=== PATIENT | female | born 1950 | race Caucasian/White ===

== ENCOUNTER 2020-09-30 15:25 | Inpatient (IN) | payer MEDICARE, OTHER ==
[~2020-09-30] VITALS: Ht 67 cm; Wt 74.3 kg
[~2020-09-30 15:25] MED LIST: ACETAMINOPHEN 500 MG TAB (TYLENOL) PO PRN; ALPRAZolam 0.25 MG (XANAX) TAB PO PRN; AMIT25TA9 PO; ASCO100024 PO; ASPI325T32 PO; BISACODYL 10 MG SUPP (DULCOLAX) PR PRN; BUTA-235 PO; CALC1TAB84 PO; CALCIUM CARBONATE 500 MG (TUMS) TAB.CHEW PO PRN; CHOL500050 PO; CRAN400T3 PO; DOCU100T2 PO; DOCUSATE SODIUM 100 MG (COLACE) CAP PO PRN; DOCUSATE SODIUM 100 MG (COLACE) CAP PO SCH; EZET10TA49 PO; FLEET ENEMA ADULT 1 EA BTL PR PRN; IRON1TAB PO; LACT1CAP76 PO; LACTULOSE SYRUP 10GM/15ML (ENULOSE) 30ML UDC PO PRN; LISI20TA26 PO; LOPERAMIDE 2 MG (IMODIUM) TABLET PO PRN; MAGN500C16 PO; MELATONIN 3 MG TABLET PO PRN; METH1TAB PO; NITR-65 PO; PANT40TA52 PO; SERT50TA2 PO; UBID100C17 PO; VITA400C60 PO; WHEA144P PO; WHEA1POW6 PO; diphenhydrAMINE 25 MG TAB (BENADRYL) PO PRN; guaiFENesin/CODEINE (ROBITUSSIN AC) 10ML UDC PO PRN
[2020-09-30] MEDS ORDERED: ACETAMINOPHEN 325 MG TABLET PO PRN (15:45)
--- NOTE | 2020-09-30 15:56 | Occupational Therapy Eval ---
OT Evaluation-General/PLF Medical Diagnosis Admission Date Sep 30, 2020 at 15:25 Medical Diagnosis: L4-S1 anterior lumbar interbody fusion Onset Date: Sep 27, 2020 Therapy Diagnosis Therapy Diagnosis: Decreased ADL status Precautions Precautions/Isolations: Standard Precautions Comments Spinal precautions. Keep dressing in place during showers, change after. Referral Physician: Amrita Referral Reason: Activity Tolerance, Self Care, Evaluation/Treatment, Strengthening/ROM Medical History Pertinent Medical History: Arthritis, HTN Additional Medical History lumpectomy, back surgery, L knee replacement, anxiety, arthritis, chronic depression, HTN, UTIs Current History L4-5, L5-S1 ALIF with interbody cage without integral fixation; T9-pelvis posterior spinal fusion with instrumentation; pelvic fixation bilaterally at caudal end of construct; autograft for spine surgery local (keep dressing in place with showering though change after). Spinal precautions in place with back brace in place when OOB. Reviewed History: Yes Social History Home: Single Level Current Living Status: Alone Entry Into Home: Level Entry Steps Into Home: 0 Steps Inside Home: 0 ADL-Prior Level of Function SCALE: Activities may be completed with or without assistive devices. 6-Yizrnelyyg-fwnssco completes the activity by him/herself with no assistance from a helper. 5-Set-up or Clean-up Assistance-helper sets up or cleans up; patient completes a ctivity. [place] assists only prior to or following the activity. 4-Supervision or Touching Assistance-helper provides verbal cues and/or touching/steadying and/or contact guard assistance as patient completes activity. Assistance may be provided throughout the activity or intermittently. 3-Partial/Moderate Assistance-helper does LESS THAN HALF the effort. [place] lifts, holds or supports trunk or limbs, but provides less than half the effort. 2-Substantial/Maximal Assistance-helper does MORE THAN HALF the effort. [place] lifts or holds trunk or limbs and provides more than half the effort. 0-Eyvvawqqj-tbvotj does ALL the effort. Patient does none of the effort to complete the activity. Or, the assistance of 2 or more helpers is required for the patient to complete the activity. If activity was not attempted, code reason: 7-Patient Refused. 9-Not Applicable-not attempted and the patient did not perform the activity before the current illness, exacerbation or injury. 10-Not Attempted due to Environmental Limitations-(lack of equipment, weather restraints, etc.). 88-Not Attempted due to Medical Conditions or Safety Concerns. ADL PLOF Comments Pt states no pain prior, though did have immense back fatigue. Pt states was IND without use of AD/ AE. 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 Self Care: Independent Functional Cognition: Independent DME/Equipment: Bedside Commode, Shower DME/Equipment Comments Bedside commode over standard toilet, walk in shower, no gbs/ sc (though states can use chair from bathroom as sc), owns walker though did not use prior Occupation: [employer] nurse [address] Self: Yes OT Current Status Subjective Pt brought from family vehicle with [facility] for transfer to [facility]. No c/o pain (later rates 3-4/10 in back), AxO. Pt agrees to tx. Mental Status/Objective Patient Orientation: Person, Place, Situation, Normal For Age Attachments: Siegel Catheter Current Glasses/Contacts: Yes (contacts) Hearing Aids: No Dentures/Partials: No Hand Dominance: Right Upper Extremity ROM WFL BUE Upper Extremity Coordination WFL BUE Upper Extremity Sensation No paresthesias UE/ LE Upper Extremity Strength WFL per clinical judgment. DNT due to lifting precautions. Edema: none noted ADL-Treatment Eating (QC): 6 (pt drinks from cup. ) Oral Hygiene (QC): 6 (per clinical judgment. ) Shower/Bathe Self (QC): 7 Upper Body Dressing (QC): 7 Lower Body Dressing (QC): 7 On/Off Footwear (QC): 7 Toileting Hygiene (QC): 7 Other Treatments Pt AxO, good awareness/ problem solving. Pt completes car transfer [facility] to [facility], pushed into building. Pt is brought to ARU by [facility], introduced to building and ARU expectations, including OT/ PT/ DICTIONARY EDITOR role. Pt able to state 2/3 precautions (forgetting lifting precaution). Pt is demonstrated each precaution and reinforced no bending >90*. Pt completes ROM, no MMT due to 5 lb lifting restriction. Pt states was "in fog" prior due to anesthesias, and vision was affected from anesthesias past few days though is "almost normal." Pt states back surgery was ~6 hrs in length. Pt completes sit to stand SBA, ambulates with walker to chair/ sits with control. Pt describes home environment, is brought [facility] over toilet and AE (introduced to AE). Pt is educated on showering/ dressing/ ADLs and planned OT/ PT tomorrow. Pt states she is ready to shower (keep dressing in place with showering, change after). Pt able to drink IND. Pt is introduced to room/ call light. Pt denies needs, denies pain medication needs though pain 10/26. Pt left in recliner with all needs met, call light on lap, blanket donned. Education OT Patient Education: Correct positioning, Modified ADL techniques, Purpose of tx/functional activities, Reviewed precautions, Rehab process, Safety issues, Use of adapted equipment Teaching Recipient: Patient Teaching Methods: Demonstration, Discussion Response to Teaching: Verbalize Understanding, Return Demonstration OT Short Term Goals Short Term Goals Shower/bathe self: 3 Upper body dressin Lower body dressin Putting on/taking off footwear: 3 OT Director Of Dietary Goals Senior Care Goals Time Frame: Oct 14, 2020 Eating (QC): 6 Oral Hygiene (QC): 6 Toileting Hygiene (QC): 6 Shower/Bathe Self (QC): 6 Upper Body Dressing (QC): 6 Lower Body Dressing (QC): 6 On/Off Footwear (QC): 6 Additional Goals: 1-Demonstrate ADL Tasks, 2-Verbalize Understanding, 3- ImproveStrength/Luis 1=Demonstrate adherence to instructed precautions during ADL tasks. 2=Patient will verbalize/demonstrate understanding of assistive devices/modifications for ADL. 3=Patient will improve strength/tolerance for activity to enable patient to perform ADL's. OT Education/Plan Problem List/Assessment Assessment: Decreased Activ Tolerance, Decreased UE Strength, Impaired I ADL's, Impaired Self-Care Skills Discharge Recommendations Plan/Recommendations: Continue POC Therapy Discharge Recommendati: Home & Family Equpiment Recommendations-D/C: Hip Kit Treatment Plan/Plan of Care Treatment,Training & Education: Yes Patient would benefit from OT for education, treatment and training to promote independence in ADL's, mobility, safety and/or upper extremity function for ADL's. Plan of Care: ADL Retraining, Caregiver Training, Concurrent Therapy, Functional Mobility, Group Exercise/Act as Ind, UE Funct Exercise/Act Treatment Duration: Oct 14, 2020 Frequency: At least 5 of 7 days/Wk (IRF) Estimated Hrs Per Day: 1.5 hours per day Agreement: Yes Rehab Potential: Good Time/GCodes Start Time: 15:20 Stop Time: 15:45 Total Time Billed (hr/min): 25 Billed Treatment Time 1, BUDDY, FA= 25 TOMAS MOCTEZUMA OTR Sep 30, 2020 15:56
[2020-09-30] MEDS ORDERED: [UNRECOGNIZED DRUG - OTHER] PO (16:05)
[2020-09-30] MEDS ORDERED: [UNRECOGNIZED DRUG - OTHER] PO (16:05)
[2020-09-30] MEDS ORDERED: [UNRECOGNIZED DRUG - REMARK] PO (16:06)
--- NOTE | 2020-09-30 16:41 | PM&R Post Admission Assessment ---
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 Patient is currently ready for IRF protocol and is requesting a hot shower. Bladder meds were started at [facility] since bladder training was unsuccessful and catheter remained in place and was transported with it in place. Past Wohajts-Htmelk-Gjcubt Hx Past Med/Social Hx: Reviewed Nursing Past Med/Soc Hx, Reviewed and Corrections made Patient Social History Marrital Status: Employed/Student: employed Alcohol Use: Denies Use Smoking Status: Never a Smoker Recent Foreign Travel: No Contact w/other who traveled: No Immunizations Up To Date Date of Influenza Vaccine: May 30, 2020 Past Medical History Surgeries: Breast, Gallbladder, Hysterectomy, Orthopedic, Tonsillectomy Cardiac: High Cholesterol, Hypertension Neurological: Headaches /Migraines : No Genitourinary: Bladder Infection Musculoskeletal: Degenerate Disk Disease, Chronic Back Pain Psychosocial: Depression Self Care: Independent Functional Cognition: Independent Occupation: [employer] nurse Drive Self: Yes Eatin (pt drinks from cup. ) Oral Hygiene: 6 (per clinical judgment. ) Shower/Bathe Self: 7 Upper Body Dressin Lower Body Dressin On/Off Footwear: 7 Toileting Hygiene: 7 PM&R Allergy/Meds/Data Review Allergies Coded Allergies: Sulfa (Sulfonamide Antibiotics) (Verified Allergy, Unknown, 09/30/20) codeine (Verified Allergy, Unknown, 09/30/20) morphine (Verified Allergy, Unknown, 09/30/20) tramadol (Verified Allergy, Unknown, 09/30/20) Home Medications Scheduled Amitriptyline HCl (Amitriptyline HCl), 25 MG PO HS, (Reported) Ascorbic Acid (Vitamin C), 1,000 MG PO DAILY, (Reported) Aspirin (Aspirin EC), 325 MG PO DAILY, (Reported) Calcium Carbonate/Vitamin D3 (Calcium 600 + Vit D 200 Tablet), 1 EACH PO BID, (Reported) Cholecalciferol (Vitamin D3) (Vitamin D3), 125 MCG PO DAILY, (Reported) Cranberry Fruit (Cranberry), 400 MG PO DAILY, (Reported) Docusate Sodium (Docusate Sodium), 200 MG PO BID, (Reported) Ezetimibe (Ezetimibe), 10 MG PO DAILY, (Reported) Lactobacillus Acidophilus/Pect (Acidophilus-Pectin Capsule), 1 EACH PO DAILY, (Reported) Lisinopril (Lisinopril), 20 MG PO DAILY, (Reported) Magnesium Oxide (Magnesium Oxide), 500 MG PO DAILY, (Reported) Methenamine Hippurate (Hiprex), 1 GM PO BID, (Reported) Nitrofurantoin Monohyd/M-Cryst (Macrobid 100 mg Capsule), 100 MG PO BID, (Reported) Pantoprazole Sodium (Pantoprazole Sodium), 40 MG PO BID, (Reported) No.123/Iron/Folic AC (Elite-Ob Caplet), 1 EACH PO DAILY, (Reported) Sertraline HCl (Zoloft), 50 MG PO DAILY, (Reported) Ubidecarenone (Coq-10), 200 MG PO DAILY, (Reported) Vitamin E Acetate (Vitamin E), 400 UNIT PO DAILY, (Reported) Wheat Dextrin (Benefiber), 1 EACH PO DAILY, (Reported) [Adrenal Raw], 1 EA PO DAILY, (Reported) [All Thymus], 1 EA PO DAILY, (Reported) [Vs-C], 1 EA PO BID, (Reported) Scheduled PRN Butalb/Acetaminophen/Caffeine (Amtxfr-Fvzwvfsz-Qzun 50-325-40), 1 EACH PO Q4H PRN for HEADACHE, (Reported) Discontinued Medications Wheat Dextrin (Benefiber), 10 ML PO DAILY, (Reported) Discontinued Reason: Prescription changed Current Medications Current Medications Reviewed Review of Systems Constitutional: see HPI, malaise, weakness EENTM: no symptoms reported Respiratory: no symptoms reported Cardiovascular: no symptoms reported Gastrointestinal: constipation Genitourinary: other (retention) Musculoskeletal: back pain Skin: no symptoms reported Psychiatric/Neurological: Depressed All Other Systems Reviewed Negative Unless Noted: Yes Physical Exam Physical Exam Vital Signs Vital Signs - First Documented 09/30/20 15:58 Pulse Ox 95 O2 Delivery Room Air Capillary Refill : Height, Weight, BMI Height: '" Weight: lbs. oz. kg; 320.78 BMI Method: General Appearance: No Apparent Distress, WD/WN Eyes: Bilateral Eye Normal Inspection, Bilateral Eye PERRL HEENT: PERRL/EOMI, Normal ENT Inspection, Pharynx Normal Neck: Full Range of Motion, Normal Inspection, Non Tender, Supple, Carotid Bruit Respiratory: Chest Non Tender, Lungs Clear, Normal Breath Sounds, No Accessory Muscle Use, No Respiratory Distress Cardiovascular: Regular Rate, Rhythm, No Edema, No Gallop, No JVD, No Murmur, Normal Peripheral Pulses Gastrointestinal: Normal Bowel Sounds, No Organomegaly, No Pulsatile Mass, Non Tender, Soft Back: Normal Inspection, CVA Tenderness (L), CVA Tenderness (R), Decreased Range of Motion, Muscle Spasm, Vertebral Tenderness Extremity: Normal Capillary Refill, Normal Inspection, Normal Range of Motion, Non Tender, No Calf Tenderness, No Pedal Edema Neurologic/Psychiatric: Alert, Oriented x3, No Motor/Sensory Deficits, Normal Mood/Affect, Abnormal Gait, Motor Weakness (generlized weakness legs 4/5) Skin: Normal Color, Warm/Dry Lymphatic: No Adenopathy PM&R Medical Assessment & Plan REHAB/MEDICAL ASSESSMENT AND PLAN: REHAB IMPAIRMENT GROUP: Extensive spine surgery with debility ETIOLOGIC DIAGNOSIS: Extensive spine surgery with debility The comorbidities that impact the patients function and/or functional outcome by: extensive surgery, urinary retention with UTI's in past, severe pain REHAB PLAN: The patient is being admitted to our comprehensive inpatient rehabilitation faci lity and can tolerate the intensity of service consisting of at least: 180 minutes of therapy a day, 5 out of 7 days a week Rehab treatment will consist of: PT OT will help patient use assistive devices in order to regain function and teach fall risk prevention and ultimately return to independent living The patient/family has a good understanding of our discharge process and will benefit from an interdisciplinary inpatient rehabilitation program. The patient has potential to make improvement and is in need of at least two of the following multidisciplinary therapies including but not limited to physical, o ccupational, speech, and prosthetics and orthotics. Additionally the patient will need services from respiratory, nutritional services, wound care, psychology, etc. (Customize this to each patient). Given the patients complex condition and risk of further medical complications, rehabilitation services cannot be safely or effectively provided at a lower level of care such as a ski lled nursing facility. BARRIERS TO DISCHARGE: Extensive spine surgery and urinary retention post op complication ESTIMATED LOS: 7 days DISPOSITION: Home RELEVANT CHANGES SINCE PREADMISSION SCREENING: I have compared the patients medical and functional status at the time of the preadmission screening and there are: no changes PROGNOSIS: Good REHABILITATION GOALS: 1. PT OT will help patient use assistive devices in order to regain function and teach fall risk prevention and ultimately return to independent living All the above goals were reviewed with the patient and he/she is in agreement. By signing this document, I acknowledge that I have personally performed a full physical examination on this patient within 24 hours of admission to this inpatient rehabilitation facility and have determined the patient to be able to tolerate the above course of treatment at an intensive level for a reasonable period of time. I will be completing a detailed individualized Plan of Care for this patient by day #4 of the patients stay based upon the Preadmission Screen, the Post-Admission Evaluation, and the therapy evaluations. Admission Dx/Comorbidities: (1) S/P spinal surgery ICD Codes: Z98.890 - Other specified postprocedural states (2) GERD (gastroesophageal reflux disease) ICD Codes: K21.9 - Gastro-esophageal reflux disease without esophagitis (3) Siegel catheter in place ICD Codes: Z97.8 - Presence of other specified devices (4) Urinary retention ICD Codes: R33.9 - Retention of urine, unspecified (5) Hypertension ICD Codes: I10 - Essential (primary) hypertension (6) Hyperlipidemia ICD Codes: E78.5 - Hyperlipidemia, unspecified (7) Depression ICD Codes: F32.9 - Major depressive disorder, single episode, unspecified Assessment/Plan Assessment and Plan Assess & Plan/Chief Complaint Assessment: s/p extensive spine surgery Dr Anna POD # 3 Urinary retention post op h/o UTI's HTN HLP GERD Depression Plan: Monitor closely IRF Pain control Bladder meds LIDA RODRIGUEZ DO Sep 30, 2020 16:41
[2020-09-30] MEDS ORDERED: ACET/BUTAL/CAFF (FIORICET) TAB PO PRN (16:45)
[2020-09-30 17:10] VITALS: BP 122/59
[2020-09-30] MEDS: polyethylene glycoL POWDER 17 GM (MIRALAX) PACK PO SCH ×2 (17:38→20:53)
[2020-09-30] MEDS: SENNA W/DOCUSATE (SENOKOT S) TABLET PO SCH ×2 (17:38→20:40)
[2020-09-30] MEDS: NITROFURANTOIN 100 MG (MACROBID) CAPSULE PO SCH (17:54)
[2020-09-30] MEDS: CALCIUM CARB + VIT D 600 MG (CALCARB + D) TAB PO SCH (17:55)
[2020-09-30] MEDS: AMITRIPTYLINE 25 MG (ELAVIL) TAB PO SCH (20:40)
[2020-09-30] MEDS: PANTOPRAZOLE 40 MG (PROTONIX) TAB PO SCH (20:40)
[2020-09-30] MEDS: DOCUSATE SODIUM 100 MG (COLACE) CAP PO SCH (20:40)
[2020-09-30] MEDS: METHENAMINE HIPP (UREX) 1 GM TABLET PO SCH (20:42)
[2020-09-30] MEDS ORDERED: [UNRECOGNIZED DRUG - REMARK] PO SCH (21:00)
[2020-09-30] MEDS ORDERED: NON-FORMULARY MEDICATION 1 EA EA (Docusate Sodium 200 MG) PO SCH (21:00)
[2020-09-30] MEDS ORDERED: RX-NITROFURANTOIN 100 MG (MACROBID) CAP PPK#2 PO SCH (21:00)
[2020-09-30] MEDS ORDERED: NON-FORMULARY MEDICATION 1 EA EA (Calcium Carbonate/Vitamin D3 (Calcium 600 + Vit D 200 Ta PO SCH (21:00)
[2020-10-01 05:47] LABS: BASOPHILS % (AUTO) 0 % (0-10); EOSINOPHILS # (AUTO) 0.1 10^3/uL (0.0-0.3); EOSINOPHILS % (AUTO) 2 % (0-10); HEMATOCRIT 26 % (35-52); HEMOGLOBIN 8.4 g/dL (11.5-16.0); LYMPHOCYTES # (AUTO) 0.8 10^3/uL (1.0-4.0); LYMPHOCYTES % (AUTO) 13 % (12-44); MEAN CORPUSCULAR HEMOGLOBIN 29 pg (25-34); MEAN CORPUSCULAR HGB CONC 33 g/dL (32-36); MEAN CORPUSCULAR VOLUME 88 fL (80-99); MEAN PLATELET VOLUME 9.1 fL (9.0-12.2); MONOCYTES # (AUTO) 0.6 10^3/uL (0.0-1.0); MONOCYTES % (AUTO) 10 % (0-12); NEUTROPHILS # (AUTO) 4.7 10^3/uL (1.8-7.8); NEUTROPHILS % (AUTO) 74 % (42-75); PLATELET COUNT 178 10^3/uL (130-400); WHITE BLOOD COUNT 6.3 10^3/uL (4.3-11.0)
[2020-10-01 05:53] LABS: ALBUMIN 2.7 GM/DL (3.2-4.5)
[2020-10-01 05:54] LABS: CHLORIDE 103 MMOL/L (98-107); POTASSIUM 3.8 MMOL/L (3.6-5.0); SODIUM 136 MMOL/L (135-145)
[2020-10-01 05:56] LABS: GLUCOSE 118 MG/DL (70-105)
[2020-10-01 05:57] LABS: CARBON DIOXIDE 24 MMOL/L (21-32)
[2020-10-01 05:58] LABS: BILIRUBIN,TOTAL 0.4 MG/DL (0.1-1.0)
[2020-10-01 05:59] LABS: ALKALINE PHOSPHATASE 46 U/L (40-136)
[2020-10-01 06:00] LABS: CREATININE SERUM 0.52 MG/DL (0.60-1.30); GFR ESTIMATED > 60
[2020-10-01 06:01] LABS: BUN/CREATININE RATIO 19
[2020-10-01 06:03] LABS: ALANINE AMINOTRANSFERASE 23 U/L (0-55)
[2020-10-01 06:06] VITALS: BP 128/65
[2020-10-01] MEDS: PRENATAL VITAMIN 1 EA TAB PO SCH (06:37)
[2020-10-01] MEDS: BETHANECHOL 25 MG (URECHOLINE) TAB PO SCH ×4 (06:48→21:16)
[2020-10-01] MEDS ORDERED: IRON SUCROSE 200 MG/10 ML (VENOFER) VIAL IV ONE (07:00)
--- NOTE | 2020-10-01 07:19 | Occupational Ther Daily Note ---
OT Current Status-Daily Note Subjective Pt alert, sitting in recliner. Pt agrees to therapy. No c/o pain at this time. Mental Status/Objective Patient Orientation: Person, Place, Time, Situation Attachments: Siegel Catheter, IV ADL-Treatment Pt agrees to shower. Independent for set up of breakfast and using regular utensils to eat. SBA to ambulate into bathroom using FWW. Close SBA to transfer onto toilet, 1 verbal cue for FWW management. Close SBA to manipulate clothing in standing then independent to cleanse self sitting on toilet. SBA to ambulate to sink, pt stood and performed oral care. Due to back precautions pt is max A for all lower body bathing and dressing prior to using AE. Pt was educated on lower body AE and was able to demonstrate understanding by using AE. Pt ambulated with FWW with SBA to shower and required 1 verbal cue for reminder to sit to thread pants off of feet and used attraction worker to doff pants. Pt doffed shirt while sitting then OT covered incisions. Pt showered with supervision and required a long handled sponge to wash feet and lower legs. Pt stood with supervision to wash buttocks. Upon finishing shower, pt donned brief and pants with attraction worker with minimal assist to thread Siegel catheter through pants. Pt donned shirt and back brace with supervision. Pt donned socks with sock aid and attraction worker. Pt performed pants hike with close SBA, then ambulated with FWW with SBA to sink side to complete hair care while sitting. Pt in bathroom with call light in attraction worker and all needs met. Therapy Code Descriptions/Definitions Functional [place] Measure: 0=Not Assessed/NA 4=Minimal Assistance 1=Total Assistance 5=Supervision or Setup 2=Maximal Assistance 6=Modified [place] 3=Moderate Assistance 7=Complete IndependenceSCALE: Activities may be completed with or without assistive devices. 5-Mjtpprngbm-dqkfbot completes the activity by him/herself with no assistance from a helper. 5-Set-up or Clean-up Assistance-helper sets up or cleans up; patient completes activity. [place] assists only prior to or following the activity. 4-Supervision or Touching Assistance-helper provides verbal cues and/or touching/steadying and/or contact guard assistance as patient completes activity. Assistance may be provided throughout the activity or intermittently. 3-Partial/Moderate Assistance-helper does LESS THAN HALF the effort. [place] lifts, holds or supports trunk or limbs, but provides less than half the effort. 2-Substantial/Maximal Assistance-helper does MORE THAN HALF the effort. [place] lifts or holds trunk or limbs and provides more than half the effort. 3-Hudimdmga-vehxqm does ALL the effort. Patient does none of the effort to complete the activity. Or, the assistance of 2 or more helpers is required for the patient to complete the activity. If activity was not attempted, code reason: 7-Patient Refused. 9-Not Applicable-not attempted and the patient did not perform the activity before the current illness, exacerbation or injury. 10-Not Attempted due to Environmental Limitations-(lack of equipment, weather restraints, etc.). 88-Not Attempted due to Medical Conditions or Safety Concerns. Eating (QC): 6 (Ind) Oral Hygiene (QC): 4 (Supervision) Bathing Location: L Arm, R Arm, L Upper Leg, R Upper Leg, Chest, Abdomen, Buttocks, Perineal Area Shower/Bathe Self (QC): 3 (Due to back precautions pt is min A. Using AE pt is supervision) Upper Body Dressing (QC): 4 (Supervision) Lower Body Dressing (QC): 2 (Due to back precautions pt is max A with lower body dressing prior to use of AE. Anjali, pt required minimal assist to thread legs. Pt used attraction worker and stood to perform pants hike) On/Off Footwear: 2 (Due to back precautions pt is max A for foot wear. After education on sock aide supervision, pt used sock aid and attraction worker to don socks. pt used dressing stick to doff) Toileting Hygiene (QC): 4 (Supervision, pt performed hygiene and pants hike while standing) Toilet Transfer (QC): 4 (SBA) Education OT Patient Education: Correct positioning, Modified ADL techniques, Progress toward Goal/Update tx plan, Purpose of tx/functional activities, Reviewed precautions, Transfer techniques, Use of adapted equipment Teaching Recipient: Patient Teaching Methods: Demonstration, Discussion Response to Teaching: Verbalize Understanding OT Short Term Goals Short Term Goals Shower/bathe self: 3 Upper body dressin Lower body dressin Putting on/taking off footwear: 3 OT Transportation Director Goals [facility] Goals Time Frame: Oct 14, 2020 Eating (QC): 6 Oral Hygiene (QC): 6 Toileting Hygiene (QC): 6 Shower/Bathe Self (QC): 6 Upper Body Dressing (QC): 6 Lower Body Dressing (QC): 6 On/Off Footwear (QC): 6 Additional Goals: 1-Demonstrate ADL Tasks, 2-Verbalize Understanding, 3- ImproveStrength/Luis 1=Demonstrate adherence to instructed precautions during ADL tasks. 2=Patient will verbalize/demonstrate understanding of assistive devices/ modifications for ADL. 3=Patient will improve strength/tolerance for activity to enable patient to perform ADL's. OT Education/Plan Problem List/Assessment Assessment: Decreased UE Strength, Impaired I ADL's, Impaired Self-Care Skills, Restricted Funct UE ROM Discharge Recommendations Plan/Recommendations: Continue POC Treatment Plan/Plan of Care Patient would benefit from OT for education, treatment and training to promote independence in ADL's, mobility, safety and/or upper extremity function for ADL's. Plan of Care: ADL Retraining, Caregiver Training, Concurrent Therapy, Functional Mobility, Group Exercise/Act as Ind, UE Funct Exercise/Act Treatment Duration: Oct 14, 2020 Frequency: At least 5 of 7 days/Wk (IRF) Estimated Hrs Per Day: 1.5 hours per day Agreement: Yes Rehab Potential: Good Time/GCodes Start Time: 07:15 Stop Time: 08:45 Total Time Billed (hr/min): 90 Billed Treatment Time 1, ADL 6 (90') JAIRO JOHNSON Oct 01, 2020 07:19
[2020-10-01] MEDS ORDERED: UBIDECARENONE 200 MG PO SCH (09:00)
[2020-10-01] MEDS ORDERED: NON-FORMULARY MEDICATION 1 EA EA (Magnesium Oxide 500 MG) PO SCH (09:00)
[2020-10-01] MEDS ORDERED: WHEAT DEXTRIN PO SCH (09:00)
[2020-10-01] MEDS ORDERED: NON-FORMULARY MEDICATION 1 EA EA (Vitamin E Acetate (Vitamin E) 400 UNIT) PO SCH (09:00)
[2020-10-01] MEDS ORDERED: NON-FORMULARY MEDICATION 1 EA EA (Cranberry Fruit (Cranberry) 400 MG) PO SCH (09:00)
[2020-10-01] MEDS ORDERED: NON-FORMULARY MEDICATION 1 EA EA (Cholecalciferol (Vitamin D3) (Vitamin D3) 125 MCG) PO SCH (09:00)
[2020-10-01] MEDS ORDERED: NON-FORMULARY MEDICATION 1 EA EA (Ascorbic Acid (Vitamin C) 1,000 MG) PO SCH (09:00)
[2020-10-01] MEDS ORDERED: [UNRECOGNIZED DRUG - REMARK] PO SCH (09:00)
[2020-10-01] MEDS ORDERED: [UNRECOGNIZED DRUG - OTHER] PO SCH (09:00)
[2020-10-01] MEDS ORDERED: [UNRECOGNIZED DRUG - OTHER] PO SCH (09:00)
[2020-10-01] MEDS: ASPIRIN E.C. 325 MG (ECOTRIN) TABLET PO SCH (09:26)
[2020-10-01] MEDS: PSYLLIUM POWDER (METAMUCIL) 5.8 GM PACKET PO SCH (09:30)
[2020-10-01] MEDS: polyethylene glycoL POWDER 17 GM (MIRALAX) PACK PO SCH ×2 (09:30→21:15)
[2020-10-01] MEDS: SERTRALINE 50 MG (ZOLOFT) TABLET PO SCH (09:30)
[2020-10-01] MEDS: TAMSULOSIN 0.4 MG (FLOMAX) CAP PO SCH ×2 (09:30→21:16)
[2020-10-01] MEDS: SENNA W/DOCUSATE (SENOKOT S) TABLET PO SCH ×2 (09:30→21:16)
[2020-10-01] MEDS: eZETimibe 10 MG (ZETIA) TABLET PO SCH (09:30)
[2020-10-01] MEDS: PHENAZOPYRIDINE 100 MG (PYRIDIUM) TABLET PO SCH ×3 (09:30→18:38)
[2020-10-01] MEDS: VITAMIN E 180 MG (400 UNITS) CAP PO SCH (09:30)
[2020-10-01] MEDS: LACTOBACILLUS ACIDOPHILUS (PROBIOTIC) CAPSULE PO SCH (09:30)
[2020-10-01] MEDS: NITROFURANTOIN 100 MG (MACROBID) CAPSULE PO SCH ×2 (09:30→18:38)
[2020-10-01] MEDS: MAGNESIUM OXIDE (MAG-OX)400 MG TAB PO SCH (09:31)
[2020-10-01] MEDS: DOCUSATE SODIUM 100 MG (COLACE) CAP PO SCH ×2 (09:31→21:15)
[2020-10-01] MEDS: ASCORBIC ACID (VIT C) 500 MG TABLET PO SCH (09:31)
[2020-10-01] MEDS: lisINopril 20 MG (PRINIVIL) TABLET PO SCH (09:31)
[2020-10-01] MEDS: CALCIUM CARB + VIT D 600 MG (CALCARB + D) TAB PO SCH ×2 (09:31→18:38)
[2020-10-01] MEDS: PANTOPRAZOLE 40 MG (PROTONIX) TAB PO SCH ×2 (09:31→21:16)
[2020-10-01] MEDS: VITAMIN D3 125 MCG (5,000 UNITS) CAPSULE PO SCH (09:31)
[2020-10-01] MEDS: METHENAMINE HIPP (UREX) 1 GM TABLET PO SCH ×2 (09:32→21:16)
--- NOTE | 2020-10-01 11:53 | PM&R Progress Note ---
Subjective HPI/CC On Admission Date Seen by Provider: Oct 01, 2020 Time Seen by Provider: 12:15 Subjective/Events-last exam 10/01/20: Patient settling in well Will DC catheter soon Bladder meds maintained No BM yet so ordered supp and enema if needed Pain controlled Valium ordered for spasms Review of Systems General: Fatigue Gastrointestinal: Constipation Musculoskeletal: back pain Objective Exam Vital Signs Vital Signs Date Time Temp Pulse Resp B/P (MAP) Pulse Ox O2 Delivery O2 Flow Rate FiO2 10/02/20 05:52 36.4 92 18 127/62 (83) 95 Room Air Capillary Refill : General Appearance: No Apparent Distress, WD/WN HEENT: PERRL/EOMI, Normal ENT Inspection, Pharynx Normal Neck: Full Range of Motion, Normal Inspection, Non Tender, Supple, Carotid Bruit Respiratory: Chest Non Tender, Lungs Clear, Normal Breath Sounds, No Accessory Muscle Use, No Respiratory Distress Cardiovascular: Regular Rate, Rhythm, No Edema, No Gallop, No JVD, No Murmur, Normal Peripheral Pulses Gastrointestinal: Normal Bowel Sounds, No Organomegaly, No Pulsatile Mass, Non Tender, Soft Back: Normal Inspection, CVA Tenderness (L), CVA Tenderness (R), Decreased Range of Motion, Muscle Spasm, Vertebral Tenderness Extremity: Normal Capillary Refill, Normal Inspection, Normal Range of Motion, Non Tender, No Calf Tenderness, No Pedal Edema Neurologic/Psychiatric: Alert, Oriented x3, No Motor/Sensory Deficits, Normal Mood/Affect, Abnormal Gait, Motor Weakness (generlized weakness legs 4/5) Skin: Normal Color, Warm/Dry Lymphatic: No Adenopathy Results/Procedures Lab Patient resulted labs reviewed. FIM Transfers Therapy Code Descriptions/Definitions Functional [place] Measure: 0=Not Assessed/NA 4=Minimal Assistance 1=Total Assistance 5=Supervision or Setup 2=Maximal Assistance 6=Modified [place] 3=Moderate Assistance 7=Complete IndependenceSCALE: Activities may be completed with or without assistive devices. 2-Hfbunlybuo-usyersp completes the activity by him/herself with no assistance from a helper. 5-Set-up or Clean-up Assistance-helper sets up or cleans up; patient completes activity. [place] assists only prior to or following the activity. 4-Supervision or Touching Assistance-helper provides verbal cues and/or touching/steadying and/or contact guard assistance as patient completes activity. Assistance may be provided throughout the activity or intermittently. 3-Partial/Moderate Assistance-helper does LESS THAN HALF the effort. [place] lifts, holds or supports trunk or limbs, but provides less than half the effort. 2-Substantial/Maximal Assistance-helper does MORE THAN HALF the effort. [place] lifts or holds trunk or limbs and provides more than half the effort. 7-Mojohrdni-ffglkw does ALL the effort. Patient does none of the effort to complete the activity. Or, the assistance of 2 or more helpers is required for the patient to complete the activity. If activity was not attempted, code reason: 7-Patient Refused. 9-Not Applicable-not attempted and the patient did not perform the activity before the current illness, exacerbation or injury. 10-Not Attempted due to Environmental Limitations-(lack of equipment, weather restraints, etc.). 88-Not Attempted due to Medical Conditions or Safety Concerns. ADL-Treatment Eating (QC): 6 (Ind) Oral Hygiene (QC): 4 (Supervision) Bathing Location: L Arm, R Arm, L Upper Leg, R Upper Leg, Chest, Abdomen, Buttocks, Perineal Area Shower/Bathe Self (QC): 3 (Due to back precautions pt is min A. Using AE pt is supervision) Upper Body Dressing (QC): 4 (Supervision) Lower Body Dressing (QC): 2 (Due to back precautions pt is max A with lower body dressing prior to use of AE. Anjali, pt required minimal assist to thread legs. Pt used salvationist and stood to perform pants hike) On/Off Footwear (QC): 2 (Due to back precautions pt is max A for foot wear. After education on sock aide supervision, pt used sock aid and salvationist to don socks. pt used dressing stick to doff) Toileting Hygiene (QC): 4 (Supervision, pt performed hygiene and pants hike while standing) Toilet Transfer (QC): 4 (SBA) Assessment/Plan Assessment and Plan Assess & Plan/Chief Complaint Assessment: s/p extensive spine surgery Dr Anna POD # 4 Urinary retention post op h/o UTI's HTN HLP GERD Depression Anemia iron deficiency severe requiring IV iron Plan: Monitor closely IRF Pain control Bladder meds 10/01/20: Monitor BM Bladder meds Dr Lu consult IV iron infusion Pain control (1) S/P spinal surgery (2) GERD (gastroesophageal reflux disease) (3) Siegel catheter in place (4) Urinary retention (5) Hypertension (6) Hyperlipidemia (7) Depression LIDA RODRIGUEZ DO Oct 01, 2020 11:53
--- NOTE | 2020-10-01 11:55 | Physical Therapy Evaluation ---
PT Evaluation-General Medical Diagnosis Admission Date Sep 30, 2020 at 15:25 Medical Diagnosis: L4-S1 anterior lumbar interbody fusion Onset Date: Sep 27, 2020 Therapy Diagnosis Therapy Diagnosis: weakness; impaired mobility Precautions Precautions/Isolations: Fall Prevention, Standard Precautions Referral Physician: Amrita Reason for Referral: Evaluation/Treatment, Strengthening, Gait Medical History Pertinent Medical History: Arthritis, HTN Additional Medical History prior back surgery, left total knee replacement, anxiety, UTIs Reviewed History: Yes Social History Home: Single Level Current Living Status: Alone Entry Into Home: Level Entry PT Steps Into Home: 0 PT Steps Inside Home: 0 Prior Prior Level of Function SCALE: Activities may be completed with or without assistive devices. 4-Zldxudmdqf-nyuwbvg completes the activity by him/herself with no assistance from a helper. 5-Set-up or Clean-up Assistance-helper sets up or cleans up; patient completes activity. [place] assists only prior to or following the activity. 4-Supervision or Touching Assistance-helper provides verbal cues and/or touching/steadying and/or contact guard assistance as patient completes activity. Assistance may be provided throughout the activity or intermittently. 3-Partial/Moderate Assistance-helper does LESS THAN HALF the effort. [place] lifts, holds or supports trunk or limbs, but provides less than half the effort. 2-Substantial/Maximal Assistance-helper does MORE THAN HALF the effort. [place] lifts or holds trunk or limbs and provides more than half the effort. 2-Siqwduxsv-pcyghn does ALL the effort. Patient does none of the effort to complete the activity. Or, the assistance of 2 or more helpers is required for the patient to complete the activity. If activity was not attempted, code reason: 7-Patient Refused. 9-Not Applicable-not attempted and the patient did not perform the activity before the current illness, exacerbation or injury. 10-Not Attempted due to Environmental Limitations-(lack of equipment, weather restraints, etc.). 88-Not Attempted due to Medical Conditions or Safety Concerns. Bed Mobility: 6 Transfers (B,C,W/C): 6 Gait: 6 Stairs: 6 Indoor Mobility (Ambulation): Independent Stairs: Independent Prior Devices Use: None PT Evaluation-Current Subjective Pt underwent surgical fixation of the low thoracic and lumbar spine 09/27/20. She reports her primary symptoms prior to surgical were core weakness and inability to stand for prolonged periods. Pt reports that since surgery her pain has been minimal. She had spasms in the left side of the low back last night when trying to sleep. Pain Numeric Pain Scale: 3 Location: Lower Location Body Site: Back Pain Description: Ache, Cramping Objective Patient Orientation: Normal For Age Attachments: Siegel Catheter ROM/Strength ROM Lower Extremities right knee lacks full extension Strength Lower Extremities ankle PF/DF 5/5, knee extension 4/5 (B), hip flexion 3+/5 (B), hip extension 4/5 Integumentary/Posture Bladder Incontinence: Siegel Cath Sensory Vision: Wears Glasses Hearing: Functional Hand Dominance: Right Sensation Right Upper Extremit: Intact Sensation Left Upper Extremity: Intact Sensation Right Lower Extremit: Intact Sensation Left Lower Extremity: Intact Transfers Roll Left & Right (QC): 3 Sit to Lying (QC): 3 Lying to Sitting/Side of Bed(Q: 3 Sit to Stand (QC): 4 Chair/Qxf-fz-Ncokf Xfer(QC): 4 Toilet Transfer (QC): 3 Car Transfer (QC): 3 transfers required partial lifting of the LEs due to hip flexor weakness; some assist for the upper body is required due to abdominal and lumbar extensor weakness Gait Does the Patient Walk?: Yes Mode of Locomotion: Walk Anticipated Mode of Locomotion: Walk Walk 10 feet (QC): 4 Walk 50 ft with 2 Turns(QC): 4 Walk 150 ft (QC): 4 Walking 10ft/uneven surface-QC: 4 Distance: 1500 Gait Assistive Device: FWW Comments/Gait Description Patient fatigued toward the end of her walk and lost concentration to the point that she needed assistance in managing her walker around obstacles. Wheelchair Training Does the Pt Use a Wheelchair?: No Wheel 50 ft with 2 turns (QC): 9 Wheel 150 ft (QC): 9 Type of Wheelchair: N/A Stairs #of Steps: 4 1 Step (curb) (QC): 4 4 Steps (QC): 3 12 Steps (QC): 88 Walking Assistive Device: Walker LEs "froze" when approaching the curb step. She acknowleldged that she needed to lift her foot onto the step but was unable to lift either leg. She took a step back and then re-approached and was then able to step up onto the curb. Balance Sitting Static: Fair Sitting Dynamic: Fair Standing Static: Fair Standing Dynamic: Fair Picking up an Object (QC): 88 Assessment/Needs Pt motivated for rehab and return to (I) lifestyle. She had two episodes of left low back muscle spasm that completely limited her ability to move. One episode came when lying supine and the other when in a seated position with active hip flexion. She has weakness in her core and her LEs. She will benefit from intensive therapy to restore stability with dynamic balance and gait, improve strength, and promote return to home. Rehab Potential: Good PT Short Term Goals Short Term Goals Time Frame: Oct 08, 2020 Roll Left & Right: 4 Sit to lyin Lying to sitting on side of be: 5 Sit to stand: 5 Chair/png-ij-sqnio transfer: 5 Toilet transfer: 5 Car transfer: 5 Walk 10 feet: 5 Walk 50 feet with two turns: 5 Walk 150 feet: 5 Walking 10ft on uneven surface: 5 1 step (curb): 5 4 steps: 5 12 steps: 5 Picking up objects: 4 PT Nursing Manager Goals Care Home Goals PT Care Home Goals Time Frame: Oct 15, 2020 Roll Left & Right (QC): 6 Sit to Lying (QC): 6 Lying-Sitting on Side/Bed(QC): 6 Sit to Stand (QC): 6 Chair/Rju-ws-Pmmuc Xfer(QC): 6 Toilet Transfer (QC): 6 Car Transfer (QC): 6 Does the Patient Walk: Yes Walk 10 feet (QC): 6 Walk 50ft with 2 Turns (QC): 6 Walk 150 ft (QC): 6 Walking 10ft on Uneven Surface: 6 1 Step (curb) (QC): 6 4 Steps (QC): 6 12 Steps (QC): 6 Picking up an Object (QC): 6 Does the Pt use WC or Scooter?: No Wheel 50 feet with 2 turns (QC: 9 Type: N/A Wheel 150 feet: 9 Type: N/A PT Plan Problem List Problem List: Activity Tolerance, Functional Strength, Balance, Gait, Transfer, Bed Mobility, ROM Treatment/Plan Treatment Plan: Continue Plan of Care Treatment Plan: Bed Mobility, Education, Functional Activity Luis, Functional Strength, Group Therapy, Gait, Therapeutic Exercise, Transfers Treatment Duration: Oct 15, 2020 Frequency: At least 5 of 7 days/Wk (IRF) Estimated Hrs Per Day: 1.5 hours per day Patient and/or Family Agrees t: Yes Safety Risks/Education lumbar precautions: back brace on during out of bed activity, no flexion greater than 90 degrees, and no lifting over 5# Discharge Recommendations Target Placement home Time/GCodes Time In: 929 Time Out: 1000 Total Billed Treatment visit, eval high complexity 30 minutes LILLY STEARNS PT Oct 01, 2020 11:55
--- NOTE | 2020-10-01 12:18 | Physical Therapy Daily Note ---
PT Daily Note-Current Subjective Pt. agrees to Rx, feeling a bit fatigued but willing to walk short distance and do LE exercises Pain Numeric Pain Scale: 4 Location: Medial Location Body Site: Back Pain Description: Ache Mental Status Patient Orientation: Normal For Age Attachments: Other-See Comments (back brace) Transfers SCALE: Activities may be completed with or without assistive devices. 9-Wpyglkiuzr-uypbsdy completes the activity by him/herself with no assistance from a helper. 5-Set-up or Clean-up Assistance-helper sets up or cleans up; patient completes activity. [place] assists only prior to or following the activity. 4-Supervision or Touching Assistance-helper provides verbal cues and/or touching/steadying and/or contact guard assistance as patient completes activity. Assistance may be provided throughout the activity or intermittently. 3-Partial/Moderate Assistance-helper does LESS THAN HALF the effort. [place] lifts, holds or supports trunk or limbs, but provides less than half the effort. 2-Substantial/Maximal Assistance-helper does MORE THAN HALF the effort. [place] lifts or holds trunk or limbs and provides more than half the effort. 6-Bbtatuxvh-hgaveq does ALL the effort. Patient does none of the effort to complete the activity. Or, the assistance of 2 or more helpers is required for the patient to complete the activity. If activity was not attempted, code reason: 7-Patient Refused. 9-Not Applicable-not attempted and the patient did not perform the activity before the current illness, exacerbation or injury. 10-Not Attempted due to Environmental Limitations-(lack of equipment, weather restraints, etc.). 88-Not Attempted due to Medical Conditions or Safety Concerns. in out bed and chair SBA Gait Training Gait Assistive Device: FWW 25ft SBA Exercises Supine Ex: Ankle pumps, Quad Set, Glut sets, Heel Slides, Short Arc Quads, Scooting (up in recliner), Hip abd/add Supine Reps: 15 Seated Therapy Exercises: Ankle pumps, Sit to stand, Long arc quads, Hip flexion, Hip abd/add Seated Reps: 10 Treatments instructed in recline chair use and ways to find near zero grav position Assessment Current Status: Good Progress PT Short Term Goals Short Term Goals Time Frame: Oct 08, 2020 Roll Left & Right: 4 Sit to lyin Lying to sitting on side of be: 5 Sit to stand: 5 Chair/alt-wg-llata transfer: 5 Toilet transfer: 5 Car transfer: 5 Walk 10 feet: 5 Walk 50 feet with two turns: 5 Walk 150 feet: 5 Walking 10ft on uneven surface: 5 1 step (curb): 5 4 steps: 5 12 steps: 5 Picking up objects: 4 PT Shelter Goals Welding Pantograph Operator Goals PT Shelter Goals Time Frame: Oct 15, 2020 Roll Left & Right (QC): 6 Sit to Lying (QC): 6 Lying-Sitting on Side/Bed(QC): 6 Sit to Stand (QC): 6 Chair/Jmh-oq-Xwmud Xfer(QC): 6 Toilet Transfer (QC): 6 Car Transfer (QC): 6 Does the Patient Walk: Yes Walk 10 feet (QC): 6 Walk 50ft with 2 Turns (QC): 6 Walk 150 ft (QC): 6 Walking 10ft on Uneven Surface: 6 1 Step (curb) (QC): 6 4 Steps (QC): 6 12 Steps (QC): 6 Picking up an Object (QC): 6 Does the Pt use WC or Scooter?: No Wheel 50 feet with 2 turns (QC: 9 Type: N/A Wheel 150 feet: 9 Type: N/A PT Plan Treatment/Plan Treatment Plan: Continue Plan of Care Treatment Duration: Oct 15, 2020 Frequency: At least 5 of 7 days/Wk (IRF) Safety Risks/Education Patient Education: Gait Training, Correct Positioning, Safety Issues Teaching Recipient: Patient Teaching Methods: Demonstration, Discussion Response to Teaching: Verbalize Understanding, Return Demonstration, Reinforcement Needed Time/GCodes Time In: 1145 Time Out: 1215 Total Billed Treatment Time: 30 Total Billed Treatment 1,FA10,EX20 SUZANNE BARTON CLINICAL QUALITY MANAGER Oct 01, 2020 12:18
--- NOTE | 2020-10-01 12:18 | Physical Therapy Daily Note ---
PT Daily Note-Current Subjective Pt agreeable to therapy. Mental Status Patient Orientation: Normal For Age Attachments: Siegel Catheter Transfers SCALE: Activities may be completed with or without assistive devices. 9-Zimaikwpxn-xbtvgbj completes the activity by him/herself with no assistance from a helper. 5-Set-up or Clean-up Assistance-helper sets up or cleans up; patient completes activity. [place] assists only prior to or following the activity. 4-Supervision or Touching Assistance-helper provides verbal cues and/or touching/steadying and/or contact guard assistance as patient completes activity. Assistance may be provided throughout the activity or intermittently. 3-Partial/Moderate Assistance-helper does LESS THAN HALF the effort. [place] lift s, holds or supports trunk or limbs, but provides less than half the effort. 2-Substantial/Maximal Assistance-helper does MORE THAN HALF the effort. [place] lifts or holds trunk or limbs and provides more than half the effort. 1-Kmgpdhwus-qkynhx does ALL the effort. Patient does none of the effort to complete the activity. Or, the assistance of 2 or more helpers is required for the patient to complete the activity. If activity was not attempted, code reason: 7-Patient Refused. 9-Not Applicable-not attempted and the patient did not perform the activity before the current illness, exacerbation or injury. 10-Not Attempted due to Environmental Limitations-(lack of equipment, weather restraints, etc.). 88-Not Attempted due to Medical Conditions or Safety Concerns. education for rolling with log roll technique. Pt unable to lie supine on therapy mat due to back spasm. Gait Training Does the Patient Walk?: Yes Gait Assistive Device: FWW Ambulate 1500ft with FWW and CGA, rest, amb 500ft with FWW. Pt needed occasional cues for walker management. Exercises Seated Therapy Exercises: Ankle pumps, Long arc quads, Hip flexion, Kicking activity Standin way Ex=Flex, Abd, Ext, Marching, Mini squats, Side steps Standing Reps: 10 Performed Seated (B) LE nerve heriberto NuStep Minutes: 6 NuStep Workload: 5 Assessment Current Status: Good Progress PT Short Term Goals Short Term Goals Time Frame: Oct 08, 2020 Roll Left & Right: 4 Sit to lyin Lying to sitting on side of be: 5 Sit to stand: 5 Chair/ibr-yu-caamh transfer: 5 Toilet transfer: 5 Car transfer: 5 Walk 10 feet: 5 Walk 50 feet with two turns: 5 Walk 150 feet: 5 Walking 10ft on uneven surface: 5 1 step (curb): 5 4 steps: 5 12 steps: 5 Picking up objects: 4 PT Control Systems Developer Goals Skilled Nursing Goals PT Control Systems Developer Goals Time Frame: Oct 15, 2020 Roll Left & Right (QC): 6 Sit to Lying (QC): 6 Lying-Sitting on Side/Bed(QC): 6 Sit to Stand (QC): 6 Chair/Ing-zs-Xiluf Xfer(QC): 6 Toilet Transfer (QC): 6 Car Transfer (QC): 6 Does the Patient Walk: Yes Walk 10 feet (QC): 6 Walk 50ft with 2 Turns (QC): 6 Walk 150 ft (QC): 6 Walking 10ft on Uneven Surface: 6 1 Step (curb) (QC): 6 4 Steps (QC): 6 12 Steps (QC): 6 Picking up an Object (QC): 6 Does the Pt use WC or Scooter?: No Wheel 50 feet with 2 turns (QC: 9 Type: N/A Wheel 150 feet: 9 Type: N/A PT Plan Treatment/Plan Treatment Plan: Continue Plan of Care Treatment Plan: Bed Mobility, Education, Functional Activity Luis, Functional Strength, Group Therapy, Gait, Therapeutic Exercise, Transfers Treatment Duration: Oct 15, 2020 Frequency: At least 5 of 7 days/Wk (IRF) Estimated Hrs Per Day: 1.5 hours per day Patient and/or Family Agrees t: Yes Time/GCodes Time In: 1000 Time Out: 1030 Total Billed Treatment Time: 30 Total Billed Treatment visit, gait 15, ex 15 LILLY STEARNS PT Oct 01, 2020 12:18
[2020-10-01] MEDS ORDERED: DIAZEPAM 5 MG (VALIUM) TABLET PO SCH (14:00)
[2020-10-01 16:21] VITALS: BP 115/63
--- NOTE | 2020-10-01 19:14 | Individualized Plan of Care ---
Individualized Plan of Care Rehab Nursing IPOC Order Admission Date Sep 30, 2020 at 15:25 Current Orders Orders Admission Order(Inpt,Obs,Sdc) (09/30/20 05:49) Vital Signs: Per Unit Policy ( ,16,00 (09/30/20 05:49) Jacky Dockery (09/30/20 05:49) Sequential Compression Device Q4H (09/30/20 05:49) [employer]-Inpt Rehab Con (09/30/20 05:49) Rehab Nursing Orders-Ipoc (09/30/20 05:49) Physical Therapy Rehab Orders (09/30/20 05:49) Occupational Therapy Rehab Ord (09/30/20 05:49) Speech Therapy Rehab Orders (09/30/20 05:49) Cbc With Automated Diff (10/01/20 06:00) Comprehensive Metabolic Panel (10/01/20 06:00) Intake & Output 06,14,22 (09/30/20 05:49) Precautions (Aru) (09/30/20 05:49) Weekly Weight WEEK (09/30/20 05:49) Rehab-Intensity Of Therapy (09/30/20 05:49) Initiate Admission Nursing Pro .admission (09/30/20 05:49) Acetaminophen Tablet (Tylenol Tablet) (09/30/20 06:00) Alprazolam Tablet (Xanax Tablet) (09/30/20 06:00) Calcium Carbonate Chew Tablet (Antacid C (09/30/20 06:00) Diphenhydramine Tablet (Benadryl Tablet) (09/30/20 06:00) Docusate Sodium Capsule (Colace Capsule) (09/30/20 09:00) Docusate Sodium Capsule (Colace Capsule) (09/30/20 06:00) Bisacodyl Suppository (Dulcolax Supposit (09/30/20 06:00) Lactulose Oral Solution (Enulose Oral So (09/30/20 06:00) Na Phos/Na Biphos Enema (Fleet Enema Stanley (09/30/20 06:00) Guaifenesin/Codeine Syrup (Robitussin Ac (09/30/20 06:00) Loperamide Tablet (Imodium Tablet) (09/30/20 06:00) Melatonin Tablet (Melatonin Tablet) (09/30/20 06:00) Polyethylene Glycol Powder Pkt (Miralax (09/30/20 09:00) Ondansetron Oral Dissolve Tab (Zofran (09/30/20 06:00) Senna S Tablet (Senokot S Tablet) (09/30/20 09:00) Vte Contraindication (09/30/20 05:49) Code/Resuscitation (09/30/20 05:49) Initiate Admission Nursing Pro .admission (09/30/20 05:49) General/Regular (09/30/20 Lunch) Acetaminophen Tablet/Caplet (Tylenol T (09/30/20 15:45) Amitriptyline Tablet (Elavil Tablet) (09/30/20 21:00) Aspirin Enteric Coated Tablet (Ecotrin T (10/01/20 09:00) Butalbital/Apap/Caffeine Tab (Fioricet T (09/30/20 16:45) Ezetimibe Tablet (Zetia Tablet) (10/01/20 09:00) Lactobacillus Acidophilus Cap (Acidophil (10/01/20 09:00) Lisinopril Tablet (Zestril Tablet) (10/01/20 09:00) Methenamine Hippurate (Urex Tablets) (09/30/20 21:00) Rx-Nitrofurantoin Brooks (Rx-Macrobid) (09/30/20 21:00) Pantoprazole Tablet (Protonix Tablet) (09/30/20 21:00) Sertraline Tablet (Zoloft Tablet) (10/01/20 09:00) (Nf) Ascorbic Acid (Vitamin C) (10/01/20 09:00) (Nf) Calcium Carbonate/Vitamin D3 (Calci (09/30/20 21:00) (Nf) Cholecalciferol (Vitamin D3) (Vitam (10/01/20 09:00) (Nf) Cranberry Fruit (Cranberry) (10/01/20 09:00) (Nf) Docusate Sodium (09/30/20 21:00) (Nf) Magnesium Oxide (10/01/20 09:00) (Nf) No.123/Iron/Folic Ac (Elit (10/01/20 09:00) (Nf) Ubidecarenone (Coq-10) (10/01/20 09:00) (Nf) Vitamin E Acetate (Vitamin E) (10/01/20 09:00) (Nf) Wheat Dextrin (Benefiber) (10/01/20 09:00) (Nf) [Adrenal Raw] (10/01/20 09:00) (Nf) [All Thymus] (10/01/20 09:00) (Nf) [Vs-C] (09/30/20 21:00) Ascorbic Acid Tablet (Vitamin C Tablet) (10/01/20 08:00) Calcium Carbonate W/Vitamin D3 (Calcarb (09/30/20 18:00) Cholecalciferol Capsule/Tablet (Vitamin (10/01/20 09:00) Magnesium Oxide Tablet (Mag Ox Tablet) (10/01/20 08:00) Vitamin (Vitamins ()) (10/01/20 07:00) Dl-Alpha Tochopheryl Capsule (Vitamin E (10/01/20 09:00) Docusate Sodium Capsule (Colace Capsule) (09/30/20 21:00) Psyllium Powder (Metamucil Powder) (10/01/20 09:00) Nitrofurantoin Capsule,Macro (Macrobid C (09/30/20 18:00) Hydrocodone/Apap 10/325 Tablet (Lortab 1 (09/30/20 19:45) Hydrocodone/Apap 10/325 Tablet (Lortab 1 (10/01/20 01:22) Bethanechol Tablet (Urecholine Tablet) (10/01/20 06:45) Phenazopyridine Tablet (Pyridium Tablet) (10/01/20 09:00) Tamsulosin Capsule (Flomax Capsule) (10/01/20 09:00) Iron Test (Fe) (10/01/20 06:46) Iron Sucrose Injection (Venofer Injectio (10/01/20 07:00) Hydrocodone/Apap 10/325 Tablet (Lortab 1 (09/30/20 19:52) Diazepam Tablet (Valium Tablet) (10/01/20 14:00) Consult Urology (10/01/20 11:57) Patient Visit (10/01/20 ) Pt Eval High Complexity (10/01/20 ) Gait Training, Ea 15 Min (10/01/20 ) Exercise Therap, Ea 15 Min (10/01/20 ) Functional Activities, Ea 15 (10/01/20 ) Diazepam Tablet (Valium Tablet) (10/01/20 14:15) Iron Sucrose Injection (Venofer Injectio (10/03/20 09:00) Rehab Nursing Orders: Ongoing Assess. of Function Status, Bladder Management, Bladder Scan, Bladder Training, Bowel Management, Bowel Training, Disease Management & Educaiton, DVT Prophylaxis, Fall Prevention, Fluid/Electrolyte/Nutrition Mgmt, Wound Management Intensity of Therapy to be met Patient to be seen: Min.3h per day/5 of 7d PT IPOC Problem List: Activity Tolerance, Functional Strength, Balance, Gait, Transfer, Bed Mobility, ROM Treatment Plan: Continue Plan of Care Bed Mobility, Education, Functional Activity Luis, Functional Strength, Group Therapy, Gait, Therapeutic Exercise, Transfers Treatment Duration: Oct 15, 2020 Frequency: At least 5 of 7 days/Wk (IRF) Estimated Hrs Per Day: 1.5 hours per day OT IPOC Problems: Decreased UE Strength, Impaired I ADL's, Impaired Self-Care Skills, Restricted Funct UE ROM OT Treatment, Training and Edu: Yes Plan of Care: ADL Retraining, Caregiver Training, Concurrent Therapy, Functional Mobility, Group Exercise/Act as Ind, UE Funct Exercise/Act Treatment Duration: Oct 14, 2020 Frequency: At least 5 of 7 days/Wk (IRF) Estimated Hrs Per Day: 1.[address] IPOC Speech Therapy Treatment Plan: Discontinue ST Treatment Duration: Sep 30, 2020 Frequency: Modified Program (IRF) Estimated Hrs Per Day: Other [employer]/Case Mgmt Cleaner [employer]/Case Managemen: Discharge Planning Dietitian/Chief Nursing Officer Dietitian/Chief Nursing Officer to monitor nutritional status and make changes and/or recommendations as needed and work with speech pathology on dietary upgrades as the occur. Physician IPOC Medical Issues being managed closely and that require the 24 hour availability of a physician: Extensive spine surgery will require close monitoring of the incision and retrain bladder due to operative related retention and monitor bowel function Medical Issues: Bowel/Bladder Function, DVT Prophylaxis, Falls Precautions, Fluid/Electrolyte/Nutrition Balance, Infection Protection Brief Synthesis of Preadmission Screen, Post-Admission Evaluation, and Therapy Evaluations: PT OT will focus on regaining function and ambulatory skills in order to return to independent living while increasing independent ADL's Medical Prognosis: Good Anticipated Length of Stay: 7 days LIDA RODRIGUEZ DO Oct 01, 2020 19:14
[2020-10-01] MEDS: AMITRIPTYLINE 25 MG (ELAVIL) TAB PO SCH (21:16)
[2020-10-02 05:52] VITALS: BP 127/62
[2020-10-02] MEDS: PRENATAL VITAMIN 1 EA TAB PO SCH (06:55)
[2020-10-02] MEDS: BETHANECHOL 25 MG (URECHOLINE) TAB PO SCH ×4 (06:55→21:00)
[2020-10-02] MEDS: PSYLLIUM POWDER (METAMUCIL) 5.8 GM PACKET PO SCH (09:51)
[2020-10-02] MEDS: polyethylene glycoL POWDER 17 GM (MIRALAX) PACK PO SCH ×2 (09:53→20:56)
[2020-10-02] MEDS: ASPIRIN E.C. 325 MG (ECOTRIN) TABLET PO SCH (09:54)
[2020-10-02] MEDS: NITROFURANTOIN 100 MG (MACROBID) CAPSULE PO SCH ×2 (09:54→17:09)
[2020-10-02] MEDS: CALCIUM CARB + VIT D 600 MG (CALCARB + D) TAB PO SCH ×2 (09:54→17:09)
[2020-10-02] MEDS: lisINopril 20 MG (PRINIVIL) TABLET PO SCH (09:54)
[2020-10-02] MEDS: TAMSULOSIN 0.4 MG (FLOMAX) CAP PO SCH ×2 (09:54→20:58)
[2020-10-02] MEDS: VITAMIN D3 125 MCG (5,000 UNITS) CAPSULE PO SCH (09:54)
[2020-10-02] MEDS: SENNA W/DOCUSATE (SENOKOT S) TABLET PO SCH ×2 (09:54→20:59)
[2020-10-02] MEDS: PANTOPRAZOLE 40 MG (PROTONIX) TAB PO SCH ×2 (09:55→20:59)
[2020-10-02] MEDS: ASCORBIC ACID (VIT C) 500 MG TABLET PO SCH (09:55)
[2020-10-02] MEDS: PHENAZOPYRIDINE 100 MG (PYRIDIUM) TABLET PO SCH ×3 (09:55→17:09)
[2020-10-02] MEDS: eZETimibe 10 MG (ZETIA) TABLET PO SCH (09:55)
[2020-10-02] MEDS: SERTRALINE 50 MG (ZOLOFT) TABLET PO SCH (09:55)
[2020-10-02] MEDS: LACTOBACILLUS ACIDOPHILUS (PROBIOTIC) CAPSULE PO SCH (09:55)
[2020-10-02] MEDS: DOCUSATE SODIUM 100 MG (COLACE) CAP PO SCH ×2 (09:55→20:58)
[2020-10-02] MEDS: METHENAMINE HIPP (UREX) 1 GM TABLET PO SCH ×2 (09:55→20:58)
[2020-10-02] MEDS: MAGNESIUM OXIDE (MAG-OX)400 MG TAB PO SCH (09:55)
[2020-10-02] MEDS: VITAMIN E 180 MG (400 UNITS) CAP PO SCH (09:55)
--- NOTE | 2020-10-02 11:45 | PM&R Progress Note ---
Subjective HPI/CC On Admission Date Seen by Provider: Oct 02, 2020 Time Seen by Provider: 11:45 Subjective/Events-last exam 10/02/20: Had a small BM today Siegel will be DC and if issues persist will talk to Dr Lu Pain controlled Iron infusions ordered and updated her on the iron level 17 10/01/20: Patient settling in well Will DC catheter soon Bladder meds maintained No BM yet so ordered supp and enema if needed Pain controlled Valium ordered for spasms Review of Systems General: Fatigue, Malaise Musculoskeletal: back pain Objective Exam Vital Signs Vital Signs Date Time Temp Pulse Resp B/P (MAP) Pulse Ox O2 Delivery O2 Flow Rate FiO2 10/02/20 08:00 Room Air 10/02/20 05:52 36.4 92 18 127/62 (83) 95 Capillary Refill : General Appearance: No Apparent Distress, WD/WN HEENT: PERRL/EOMI, Normal ENT Inspection, Pharynx Normal Neck: Full Range of Motion, Normal Inspection, Non Tender, Supple, Carotid Bruit Respiratory: Chest Non Tender, Lungs Clear, Normal Breath Sounds, No Accessory Muscle Use, No Respiratory Distress Cardiovascular: Regular Rate, Rhythm, No Edema, No Gallop, No JVD, No Murmur, Normal Peripheral Pulses Gastrointestinal: Normal Bowel Sounds, No Organomegaly, No Pulsatile Mass, Non Tender, Soft Back: Normal Inspection, CVA Tenderness (L), CVA Tenderness (R), Decreased Range of Motion, Muscle Spasm, Vertebral Tenderness Extremity: Normal Capillary Refill, Normal Inspection, Normal Range of Motion, Non Tender, No Calf Tenderness, No Pedal Edema Neurologic/Psychiatric: Alert, Oriented x3, No Motor/Sensory Deficits, Normal Mood/Affect, Abnormal Gait, Motor Weakness (generlized weakness legs 4/5) Skin: Normal Color, Warm/Dry Lymphatic: No Adenopathy Results/Procedures Lab Patient resulted labs reviewed. FIM Transfers Therapy Code Descriptions/Definitions Functional [place] Measure: 0=Not Assessed/NA 4=Minimal Assistance 1=Total Assistance 5=Supervision or Setup 2=Maximal Assistance 6=Modified [place] 3=Moderate Assistance 7=Complete IndependenceSCALE: Activities may be completed with or without assistive devices. 9-Adnczpzhkr-xmejgoe completes the activity by him/herself with no assistance from a helper. 5-Set-up or Clean-up Assistance-helper sets up or cleans up; patient completes activity. [place] assists only prior to or following the activity. 4-Supervision or Touching Assistance-helper provides verbal cues and/or touching/steadying and/or contact guard assistance as patient completes activity. Assistance may be provided throughout the activity or intermittently. 3-Partial/Moderate Assistance-helper does LESS THAN HALF the effort. [place] lifts, holds or supports trunk or limbs, but provides less than half the effort. 2-Substantial/Maximal Assistance-helper does MORE THAN HALF the effort. [place] lifts or holds trunk or limbs and provides more than half the effort. 2-Wpdkqxgcs-nberwn does ALL the effort. Patient does none of the effort to complete the activity. Or, the assistance of 2 or more helpers is required for the patient to complete the activity. If activity was not attempted, code reason: 7-Patient Refused. 9-Not Applicable-not attempted and the patient did not perform the activity before the current illness, exacerbation or injury. 10-Not Attempted due to Environmental Limitations-(lack of equipment, weather restraints, etc.). 88-Not Attempted due to Medical Conditions or Safety Concerns. Roll Left to Right (QC): 3 Sit to Lying (QC): 3 Sit to Stand (QC): 4 Chair/Qsb-lb-Mqrxk Xfer(QC): 4 Car Transfer (QC): 3 Gait Training Does the Patient Walk?: Yes Walk 10 feet (QC): 4 Walk 50 ft with 2 Turns(QC): 4 Walk 150 ft (QC): 4 Walking 10ft/uneven surface-QC: 4 Gait Assistive Device: FWW Wheelchair Training Does the Pt Use a Wheelchair?: No Wheel 50 ft with 2 turns (QC): 9 Wheel 150 ft (QC): 9 Type of Wheelchair: N/A Stair Training #of Steps: 4 1 Step (curb) (QC): 4 4 Steps (QC): 3 12 Steps (QC): 88 Balance Picking up an Object (QC): 88 ADL-Treatment Eating (QC): 6 (Ind) Oral Hygiene (QC): 4 (Supervision) Bathing Location: L Arm, R Arm, L Upper Leg, R Upper Leg, Chest, Abdomen, Buttocks, Perineal Area Shower/Bathe Self (QC): 3 (Due to back precautions pt is min A. Using AE pt is supervision) Upper Body Dressing (QC): 4 (Supervision) Lower Body Dressing (QC): 2 (Due to back precautions pt is max A with lower body dressing prior to use of AE. Anjali, pt required minimal assist to thread legs. Pt used food science technician and stood to perform pants hike) On/Off Footwear (QC): 2 (Due to back precautions pt is max A for foot wear. After education on sock aide supervision, pt used sock aid and food science technician to don socks. pt used dressing stick to doff) Toileting Hygiene (QC): 4 (Supervision, pt performed hygiene and pants hike while standing) Toilet Transfer (QC): 4 (SBA) Assessment/Plan Assessment and Plan Assess & Plan/Chief Complaint Assessment: s/p extensive spine surgery Dr Anna POD # 5 Urinary retention post op h/o UTI's HTN HLP GERD Depression Anemia iron deficiency severe requiring IV iron Plan: Monitor closely IRF Pain control Bladder meds 10/01/20: Monitor BM Bladder meds Dr Lu consult IV iron infusion Pain control 10/02/20: Small BM so evita give more meds DC Siegel cath Pain control (1) S/P spinal surgery (2) GERD (gastroesophageal reflux disease) (3) Siegel catheter in place (4) Urinary retention (5) Hypertension (6) Hyperlipidemia (7) Depression LIDA RODRIGUEZ DO Oct 02, 2020 11:45
[2020-10-02] MEDS: ONDANSETRON 4 MG (ZOFRAN) ORAL DISSOLVE TAB PO PRN ×2 (13:36→21:00)
--- NOTE | 2020-10-02 15:45 | CONSULTATION REPORT ---
DATE OF SERVICE: 10/02/2020 ATTENDING PHYSICIAN: Lynette Crowe DO SUMMARY: After reviewing the patient's record, interviewing her, this is a 70-year-old white lady recovering from extensive spinal surgery, developed urinary retention and failed trial of voiding. She was started on Flomax b.i.d. and Urecholine 25 q.i.d. and before breakfast and at bedtime. She has no COPD or asthma. She tolerates the medicine pretty well. ALLERGIES: SHE IS ALLERGIC TO SULFA. IMPRESSION: Neurogenic bladder with retention. POSTOPERATIVE PLAN: Give her trial of voiding today. Follow up with bladder scanner. Straight cath p.r.n. Increase Urecholine p.r.n. The plan was fully explained to the patient and the nurse. Job ID: [id number] DocumentID: [id number] Dictated Date: 10/02/2020 13:47:45 Opener Verifier [employer] Date: 10/02/2020 15:44:55 Dictated By: FRANKY BROWER MD
[2020-10-02 17:07] VITALS: BP 132/69
[2020-10-02] MEDS: AMITRIPTYLINE 25 MG (ELAVIL) TAB PO SCH (20:59)
[2020-10-02] MEDS: DIAZEPAM 5 MG (VALIUM) TABLET PO PRN (20:59)
[2020-10-03 05:54] VITALS: BP 145/68
[2020-10-03] MEDS: BETHANECHOL 25 MG (URECHOLINE) TAB PO SCH ×4 (06:29→21:09)
[2020-10-03] MEDS: PRENATAL VITAMIN 1 EA TAB PO SCH (06:29)
--- NOTE | 2020-10-03 06:57 | PM&R Progress Note ---
Subjective HPI/CC On Admission Date Seen by Provider: Oct 03, 2020 Time Seen by Provider: 11:00 Subjective/Events-last exam 10/03/20: Improved status Ad ashvin in room Pain controlled Valium and Hydrocodone taken last night Voiding well without catheter BM+ 10/02/20: Had a small BM today Siegel will be DC and if issues persist will talk to Dr Lu Pain controlled Iron infusions ordered and updated her on the iron level 17 10/01/20: Patient settling in well Will DC catheter soon Bladder meds maintained No BM yet so ordered supp and enema if needed Pain controlled Valium ordered for spasms Review of Systems Musculoskeletal: back pain Objective Exam Vital Signs Vital Signs Date Time Temp Pulse Resp B/P (MAP) Pulse Ox O2 Delivery O2 Flow Rate FiO2 10/04/20 06:00 36.5 83 18 139/64 (89) 96 Room Air Capillary Refill : General Appearance: No Apparent Distress, WD/WN HEENT: PERRL/EOMI, Normal ENT Inspection, Pharynx Normal Neck: Full Range of Motion, Normal Inspection, Non Tender, Supple, Carotid Bruit Respiratory: Chest Non Tender, Lungs Clear, Normal Breath Sounds, No Accessory Muscle Use, No Respiratory Distress Cardiovascular: Regular Rate, Rhythm, No Edema, No Gallop, No JVD, No Murmur, Normal Peripheral Pulses Gastrointestinal: Normal Bowel Sounds, No Organomegaly, No Pulsatile Mass, Non Tender, Soft Back: Normal Inspection, CVA Tenderness (L), CVA Tenderness (R), Decreased Range of Motion, Muscle Spasm, Vertebral Tenderness Extremity: Normal Capillary Refill, Normal Inspection, Normal Range of Motion, Non Tender, No Calf Tenderness, No Pedal Edema Neurologic/Psychiatric: Alert, Oriented x3, No Motor/Sensory Deficits, Normal Mood/Affect, Abnormal Gait, Motor Weakness (generlized weakness legs 4/5) Skin: Normal Color, Warm/Dry Lymphatic: No Adenopathy Results/Procedures Lab Patient resulted labs reviewed. FIM Transfers Therapy Code Descriptions/Definitions Functional [place] Measure: 0=Not Assessed/NA 4=Minimal Assistance 1=Total Assistance 5=Supervision or Setup 2=Maximal Assistance 6=Modified [place] 3=Moderate Assistance 7=Complete IndependenceSCALE: Activities may be completed with or without assistive devices. 6-Hazbbrbehy-tnozavc completes the activity by him/herself with no assistance from a helper. 5-Set-up or Clean-up Assistance-helper sets up or cleans up; patient completes activity. [place] assists only prior to or following the activity. 4-Supervision or Touching Assistance-helper provides verbal cues and/or touching/steadying and/or contact guard assistance as patient completes activity. Assistance may be provided throughout the activity or intermittently. 3-Partial/Moderate Assistance-helper does LESS THAN HALF the effort. [place] lifts, holds or supports trunk or limbs, but provides less than half the effort. 2-Substantial/Maximal Assistance-helper does MORE THAN HALF the effort. [place] lifts or holds trunk or limbs and provides more than half the effort. 0-Cxxomyzxh-bufamp does ALL the effort. Patient does none of the effort to complete the activity. Or, the assistance of 2 or more helpers is required for the patient to complete the activity. If activity was not attempted, code reason: 7-Patient Refused. 9-Not Applicable-not attempted and the patient did not perform the activity before the current illness, exacerbation or injury. 10-Not Attempted due to Environmental Limitations-(lack of equipment, weather restraints, etc.). 88-Not Attempted due to Medical Conditions or Safety Concerns. Roll Left to Right (QC): 3 Sit to Lying (QC): 3 Sit to Stand (QC): 4 Chair/Fjq-dq-Wpdjm Xfer(QC): 4 Car Transfer (QC): 3 Gait Training Does the Patient Walk?: Yes Walk 10 feet (QC): 4 Walk 50 ft with 2 Turns(QC): 4 Walk 150 ft (QC): 4 Walking 10ft/uneven surface-QC: 4 Gait Assistive Device: FWW Wheelchair Training Does the Pt Use a Wheelchair?: No Wheel 50 ft with 2 turns (QC): 9 Wheel 150 ft (QC): 9 Type of Wheelchair: N/A Stair Training #of Steps: 4 1 Step (curb) (QC): 4 4 Steps (QC): 3 12 Steps (QC): 88 Balance Picking up an Object (QC): 88 ADL-Treatment Eating (QC): 6 (Ind) Oral Hygiene (QC): 4 (Supervision) Bathing Location: L Arm, R Arm, L Upper Leg, R Upper Leg, Chest, Abdomen, Buttocks, Perineal Area Shower/Bathe Self (QC): 3 (Due to back precautions pt is min A. Using AE pt is supervision) Upper Body Dressing (QC): 4 (Supervision) Lower Body Dressing (QC): 2 (Due to back precautions pt is max A with lower body dressing prior to use of AE. Anjali, pt required minimal assist to thread legs. Pt used medical chief technician and stood to perform pants hike) On/Off Footwear (QC): 2 (Due to back precautions pt is max A for foot wear. After education on sock aide supervision, pt used sock aid and medical chief technician to don socks. pt used dressing stick to doff) Toileting Hygiene (QC): 4 (Supervision, pt performed hygiene and pants hike while standing) Toilet Transfer (QC): 4 (SBA) Assessment/Plan Assessment and Plan Assess & Plan/Chief Complaint Assessment: s/p extensive spine surgery Dr Anna POD # 6 Urinary retention post op h/o UTI's HTN HLP GERD Depression Anemia iron deficiency severe requiring IV iron Plan: Monitor closely IRF Pain control Bladder meds 10/01/20: Monitor BM Bladder meds Dr Lu consult IV iron infusion Pain control 10/02/20: Small BM so evita give more meds DC Siegel cath Pain control 10/03/20: Voiding well without catheter BM+ Improved status DC soon (1) S/P spinal surgery (2) GERD (gastroesophageal reflux disease) (3) Siegel catheter in place (4) Urinary retention (5) Hypertension (6) Hyperlipidemia (7) Depression LIDA RODRIGUEZ DO Oct 03, 2020 06:57
[2020-10-03] MEDS: LACTOBACILLUS ACIDOPHILUS (PROBIOTIC) CAPSULE PO SCH (07:35)
[2020-10-03] MEDS: PHENAZOPYRIDINE 100 MG (PYRIDIUM) TABLET PO SCH ×3 (07:35→18:41)
[2020-10-03] MEDS: VITAMIN D3 125 MCG (5,000 UNITS) CAPSULE PO SCH (07:35)
[2020-10-03] MEDS: CALCIUM CARB + VIT D 600 MG (CALCARB + D) TAB PO SCH ×2 (07:35→17:05)
[2020-10-03] MEDS: PSYLLIUM POWDER (METAMUCIL) 5.8 GM PACKET PO SCH (07:36)
[2020-10-03] MEDS: eZETimibe 10 MG (ZETIA) TABLET PO SCH (07:36)
[2020-10-03] MEDS: ASCORBIC ACID (VIT C) 500 MG TABLET PO SCH (07:36)
[2020-10-03] MEDS: polyethylene glycoL POWDER 17 GM (MIRALAX) PACK PO SCH ×2 (07:36→21:08)
[2020-10-03] MEDS: DOCUSATE SODIUM 100 MG (COLACE) CAP PO SCH ×2 (07:36→21:10)
[2020-10-03] MEDS: TAMSULOSIN 0.4 MG (FLOMAX) CAP PO SCH ×2 (07:37→21:08)
[2020-10-03] MEDS: ASPIRIN E.C. 325 MG (ECOTRIN) TABLET PO SCH (07:37)
[2020-10-03] MEDS: SENNA W/DOCUSATE (SENOKOT S) TABLET PO SCH ×2 (07:37→21:09)
[2020-10-03] MEDS: VITAMIN E 180 MG (400 UNITS) CAP PO SCH (07:37)
[2020-10-03] MEDS: SERTRALINE 50 MG (ZOLOFT) TABLET PO SCH (07:37)
[2020-10-03] MEDS: NITROFURANTOIN 100 MG (MACROBID) CAPSULE PO SCH ×2 (07:37→17:05)
[2020-10-03] MEDS: PANTOPRAZOLE 40 MG (PROTONIX) TAB PO SCH ×2 (07:37→21:09)
[2020-10-03] MEDS: lisINopril 20 MG (PRINIVIL) TABLET PO SCH (07:37)
[2020-10-03] MEDS: MAGNESIUM OXIDE (MAG-OX)400 MG TAB PO SCH (07:37)
[2020-10-03] MEDS: IRON SUCROSE 200 MG/10 ML (VENOFER) VIAL IV SCH (07:45)
[2020-10-03] MEDS: METHENAMINE HIPP (UREX) 1 GM TABLET PO SCH ×2 (09:08→21:11)
--- NOTE | 2020-10-03 09:59 | Occupational Ther Daily Note ---
OT Current Status-Daily Note Subjective Pt alert, sitting in recliner. Pt agrees to therapy. C/o pain, 01/26, reported to nrsg. Nrsg brought pain meds. Mental Status/Objective Patient Orientation: Person, Place, Time, Situation Attachments: Other-See Comments (back brace) ADL-Treatment Pt agrees to shower. Independently gathered and transported clothing using FWW. Independent with doffing clothing, uses AE to manipulate lower body clothing. Independent with donning shirt and back brace. Due to time constraints, assist given to don lower body clothing. Pt has demonstrated ability to complete with AE with supervision. Independent with toileting and transfer using FWW, grabbars and BSC. Independent sitting at sink to complete oral care. After therapy, pt sitting at sink to complete grooming. PT notified of position since PT taking over care of pt. All needs met. Therapy Code Descriptions/Definitions Functional [place] Measure: 0=Not Assessed/NA 4=Minimal Assistance 1=Total Assistance 5=Supervision or Setup 2=Maximal Assistance 6=Modified [place] 3=Moderate Assistance 7=Complete IndependenceSCALE: Activities may be completed with or without assistive devices. 2-Fkkuijqxkt-imvrxbv completes the activity by him/herself with no assistance from a helper. 5-Set-up or Clean-up Assistance-helper sets up or cleans up; patient completes activity. [place] assists only prior to or following the activity. 4-Supervision or Touching Assistance-helper provides verbal cues and/or touching/steadying and/or contact guard assistance as patient completes activity. Assistance may be provided throughout the activity or intermittently. 3-Partial/Moderate Assistance-helper does LESS THAN HALF the effort. [place] lifts, holds or supports trunk or limbs, but provides less than half the effort. 2-Substantial/Maximal Assistance-helper does MORE THAN HALF the effort. [place] lifts or holds trunk or limbs and provides more than half the effort. 0-Grdhzorfd-oazekk does ALL the effort. Patient does none of the effort to complete the activity. Or, the assistance of 2 or more helpers is required for the patient to complete the activity. If activity was not attempted, code reason: 7-Patient Refused. 9-Not Applicable-not attempted and the patient did not perform the activity before the current illness, exacerbation or injury. 10-Not Attempted due to Environmental Limitations-(lack of equipment, weather restraints, etc.). 88-Not Attempted due to Medical Conditions or Safety Concerns. Oral Hygiene (QC): 6 Bathing Location: L Arm, R Arm, L Upper Leg, R Upper Leg, L Lower Leg (including foot) (LH sponge), R Lower Leg (including foot) (LH sponge), Chest, Abdomen, Buttocks, Perineal Area Shower/Bathe Self (QC): 6 Upper Body Dressing (QC): 6 Toileting Hygiene (QC): 6 Toilet Transfer (QC): 6 OT Short Term Goals Short Term Goals Shower/bathe self: 3 Upper body dressin Lower body dressin Putting on/taking off footwear: 3 OT Halfway Goals Biostatistics Director Goals Time Frame: Oct 14, 2020 Eating (QC): 6 Oral Hygiene (QC): 6 Toileting Hygiene (QC): 6 Shower/Bathe Self (QC): 6 Upper Body Dressing (QC): 6 Lower Body Dressing (QC): 6 On/Off Footwear (QC): 6 Additional Goals: 1-Demonstrate ADL Tasks, 2-Verbalize Understanding, 3-ImproveStrength/Luis 1=Demonstrate adherence to instructed precautions during ADL tasks. 2=Patient will verbalize/demonstrate understanding of assistive devices/modifications for ADL. 3=Patient will improve strength/tolerance for activity to enable patient to perform ADL's. OT Education/Plan Problem List/Assessment Assessment: Impaired Self-Care Skills Discharge Recommendations Plan/Recommendations: Continue POC Equpiment Recommendations-D/C: Hip Kit Treatment Plan/Plan of Care Patient would benefit from OT for education, treatment and training to promote independence in ADL's, mobility, safety and/or upper extremity function for ADL's. Plan of Care: ADL Retraining, Caregiver Training, Concurrent Therapy, Functional Mobility, Group Exercise/Act as Ind, UE Funct Exercise/Act Treatment Duration: Oct 14, 2020 Frequency: At least 5 of 7 days/Wk (IRF) Estimated Hrs Per Day: 1.5 hours per day Agreement: Yes Rehab Potential: Good Time/GCodes Start Time: 09:00 Stop Time: 10:00 Total Time Billed (hr/min): 60 Billed Treatment Time 1 visit-ADL 4 (60 min) JAIRO JOHNSON Oct 03, 2020 09:59
--- NOTE | 2020-10-03 12:02 | Physical Therapy Daily Note ---
PT Daily Note-Current Subjective Pt agreeable and ready for therapy. Pt rates LBP 3/10 upon arrival and 4/10 during standing ther ex. Pt motivated and pleasant throughout treatment. Mental Status Patient Orientation: Person, Place, Situation Transfers SCALE: Activities may be completed with or without assistive devices. 6-Fzdfezvaip-pgzdtkx completes the activity by him/herself with no assistance from a helper. 5-Set-up or Clean-up Assistance-helper sets up or cleans up; patient completes activity. [place] assists only prior to or following the activity. 4-Supervision or Touching Assistance-helper provides verbal cues and/or touching/steadying and/or contact guard assistance as patient completes activity. Assistance may be provided throughout the activity or intermittently. 3-Partial/Moderate Assistance-helper does LESS THAN HALF the effort. [place] lifts, holds or supports trunk or limbs, but provides less than half the effort. 2-Substantial/Maximal Assistance-helper does MORE THAN HALF the effort. [place] lifts or holds trunk or limbs and provides more than half the effort. 2-Xdzasursj-zdxmvn does ALL the effort. Patient does none of the effort to complete the activity. Or, the assistance of 2 or more helpers is required for the patient to complete the activity. If activity was not attempted, code reason: 7-Patient Refused. 9-Not Applicable-not attempted and the patient did not perform the activity before the current illness, exacerbation or injury. 10-Not Attempted due to Environmental Limitations-(lack of equipment, weather restraints, etc.). 88-Not Attempted due to Medical Conditions or Safety Concerns. Sit to stand transfers mod (I), slow and guarded. Gait Training Gait Assistive Device: FWW Pt amb steady speed 2 x 1500ft with CGA-SBA and FWW for support. Exercises Standin way Ex=Flex, Abd, Ext, Side steps, Step-ups Standing Reps: 20 Treatments Pt practiced ambulation in //bars with light touch for support. No unsteadiness noted. Pt amb up/down steps of 4 x 3 bouts with no rest. Pt demonstrated reciprocal gait pattern on stairs, hand rails x 2 for support. Core strengthening: seated lat press x 20, diaphragmatic breathing x 5-10, pelvci fl oor activation x 5-10. Assessment Current Status: Excellent Progress Pt progressing appropriately. Pt demonstrates good balance throughout with use of FWW or //bars during standing ther ex and gait training. Pt back to chair with call light and all needs met. PT Short Term Goals Short Term Goals Time Frame: Oct 08, 2020 Roll Left & Right: 4 Sit to lyin Lying to sitting on side of be: 5 Sit to stand: 5 Chair/axj-un-apvib transfer: 5 Toilet transfer: 5 Car transfer: 5 Walk 10 feet: 5 Walk 50 feet with two turns: 5 Walk 150 feet: 5 Walking 10ft on uneven surface: 5 1 step (curb): 5 4 steps: 5 12 steps: 5 Picking up objects: 4 PT [facility] Goals Dining Room Supervisor Goals PT [facility] Goals Time Frame: Oct 15, 2020 Roll Left & Right (QC): 6 Sit to Lying (QC): 6 Lying-Sitting on Side/Bed(QC): 6 Sit to Stand (QC): 6 Chair/Dsg-uf-Lhowr Xfer(QC): 6 Toilet Transfer (QC): 6 Car Transfer (QC): 6 Does the Patient Walk: Yes Walk 10 feet (QC): 6 Walk 50ft with 2 Turns (QC): 6 Walk 150 ft (QC): 6 Walking 10ft on Uneven Surface: 6 1 Step (curb) (QC): 6 4 Steps (QC): 6 12 Steps (QC): 6 Picking up an Object (QC): 6 Does the Pt use WC or Scooter?: No Wheel 50 feet with 2 turns (QC: 9 Type: N/A Wheel 150 feet: 9 Type: N/A PT Plan Treatment/Plan Treatment Plan: Continue Plan of Care Treatment Plan: Bed Mobility, Education, Functional Activity Luis, Functional Strength, Group Therapy, Gait, Therapeutic Exercise, Transfers Treatment Duration: Oct 15, 2020 Frequency: At least 5 of 7 days/Wk (IRF) Estimated Hrs Per Day: 1.5 hours per day Patient and/or Family Agrees t: Yes Time/GCodes Time In: 1000 Time Out: 1100 Total Billed Treatment Time: 60 Total Billed Treatment 1, gait x 30min, ther ex x 30min DOMINIQUE SHELBY Oct 03, 2020 12:02
--- NOTE | 2020-10-03 12:04 | Occupational Ther Daily Note ---
OT Current Status-Daily Note Subjective Pt alert, sitting at sink. Pt agrees to therapy. No c/o pain at this time. Mental Status/Objective Patient Orientation: Person, Place, Time, Situation ADL-Treatment Therapy Code Descriptions/Definitions Functional [place] Measure: 0=Not Assessed/NA 4=Minimal Assistance 1=Total Assistance 5=Supervision or Setup 2=Maximal Assistance 6=Modified [place] 3=Moderate Assistance 7=Complete IndependenceSCALE: Activities may be completed with or without assistive devices. 6-Wsachigvtm-oipiass completes the activity by him/herself with no assistance from a helper. 5-Set-up or Clean-up Assistance-helper sets up or cleans up; patient completes activity. [place] assists only prior to or following the activity. 4-Supervision or Touching Assistance-helper provides verbal cues and/or touching/steadying and/or contact guard assistance as patient completes activity. Assistance may be provided throughout the activity or intermittently. 3-Partial/Moderate Assistance-helper does LESS THAN HALF the effort. [place] lifts, holds or supports trunk or limbs, but provides less than half the effort. 2-Substantial/Maximal Assistance-helper does MORE THAN HALF the effort. [place] lifts or holds trunk or limbs and provides more than half the effort. 4-Eyzrbqrqc-quuxjk does ALL the effort. Patient does none of the effort to complete the activity. Or, the assistance of 2 or more helpers is required for the patient to complete the activity. If activity was not attempted, code reason: 7-Patient Refused. 9-Not Applicable-not attempted and the patient did not perform the activity before the current illness, exacerbation or injury. 10-Not Attempted due to Environmental Limitations-(lack of equipment, weather restraints, etc.). 88-Not Attempted due to Medical Conditions or Safety Concerns. Other Treatment Pt able to complete over head activity and complete B UE tasks to complete all grooming against gravity independently. Pt then completed B UE isometric exercises without difficulty. Skilled instruction required for technique and modifications when necessary. 6 B UE in all planes, 2 sets 10 reps. After session, pt sitting in recliner with call light/phone in reach. Physician present in room. All needs met in room. OT Short Term Goals Short Term Goals Shower/bathe self: 3 Upper body dressin Lower body dressin Putting on/taking off footwear: 3 OT M[facility] Goals Mcc Goals Time Frame: Oct 14, 2020 Eating (QC): 6 Oral Hygiene (QC): 6 Toileting Hygiene (QC): 6 Shower/Bathe Self (QC): 6 Upper Body Dressing (QC): 6 Lower Body Dressing (QC): 6 On/Off Footwear (QC): 6 Additional Goals: 1-Demonstrate ADL Tasks, 2-Verbalize Understanding, 3- ImproveStrength/Luis 1=Demonstrate adherence to instructed precautions during ADL tasks. 2=Patient will verbalize/demonstrate understanding of assistive devices/modifications for ADL. 3=Patient will improve strength/tolerance for activity to enable patient to perform ADL's. OT Education/Plan Problem List/Assessment Assessment: Decreased UE Strength Discharge Recommendations Plan/Recommendations: Continue POC Treatment Plan/Plan of Care Patient would benefit from OT for education, treatment and training to promote independence in ADL's, mobility, safety and/or upper extremity function for ADL's. Plan of Care: ADL Retraining, Caregiver Training, Concurrent Therapy, Functional Mobility, Group Exercise/Act as Ind, UE Funct Exercise/Act Treatment Duration: Oct 14, 2020 Frequency: At least 5 of 7 days/Wk (IRF) Estimated Hrs Per Day: 1.5 hours per day Agreement: Yes Rehab Potential: Good Time/GCodes Start Time: 11:30 Stop Time: 12:00 Total Time Billed (hr/min): 30 Billed Treatment Time 1 visit-FA 1 (20 min) EX 1 (10 min) JAIRO JOHNSON Oct 03, 2020 12:04
--- NOTE | 2020-10-03 13:32 | Physical Therapy Daily Note ---
PT Daily Note-Current Subjective Pt up in chair, agreeable to PT. Pain rated 5/10 in mid to low back. Pt states just standing up and beginning to move helped her pain. Pt denied fatigue with therapy. Mental Status Patient Orientation: Person, Place, Situation Transfers SCALE: Activities may be completed with or without assistive devices. 6-Bhwmmujoti-ohvdxnr completes the activity by him/herself with no assistance from a helper. 5-Set-up or Clean-up Assistance-helper sets up or cleans up; patient completes activity. [place] assists only prior to or following the activity. 4-Supervision or Touching Assistance-helper provides verbal cues and/or touching /steadying and/or contact guard assistance as patient completes activity. Assistance may be provided throughout the activity or intermittently. 3-Partial/Moderate Assistance-helper does LESS THAN HALF the effort. [place] lifts, holds or supports trunk or limbs, but provides less than half the effort. 2-Substantial/Maximal Assistance-helper does MORE THAN HALF the effort. [place] lifts or holds trunk or limbs and provides more than half the effort. 1-Fnkcoewhf-ququso does ALL the effort. Patient does none of the effort to complete the activity. Or, the assistance of 2 or more helpers is required for the patient to complete the activity. If activity was not attempted, code reason: 7-Patient Refused. 9-Not Applicable-not attempted and the patient did not perform the activity before the current illness, exacerbation or injury. 10-Not Attempted due to Environmental Limitations-(lack of equipment, weather restraints, etc.). 88-Not Attempted due to Medical Conditions or Safety Concerns. Sit to stand mod (I). Pt wearing brace throughout treatment. Gait Training Gait Assistive Device: FWW Pt amb with FWW and CGA-SBA x 3000 ft. Pt amb at slow and steady speed, conversing throughout. Pt back to room/ recliner with call light and all needs met. Assessment Current Status: Excellent Progress Pt amb without signs of fatigue and without complaint. Pt progressing appropriately. PT Short Term Goals Short Term Goals Time Frame: Oct 08, 2020 Roll Left & Right: 4 Sit to lyin Lying to sitting on side of be: 5 Sit to stand: 5 Chair/agi-gy-rgjno transfer: 5 Toilet transfer: 5 Car transfer: 5 Walk 10 feet: 5 Walk 50 feet with two turns: 5 Walk 150 feet: 5 Walking 10ft on uneven surface: 5 1 step (curb): 5 4 steps: 5 12 steps: 5 Picking up objects: 4 PT [facility] Goals Prison Goals PT Fly Setter Goals Time Frame: Oct 15, 2020 Roll Left & Right (QC): 6 Sit to Lying (QC): 6 Lying-Sitting on Side/Bed(QC): 6 Sit to Stand (QC): 6 Chair/Nwv-gt-Hsvjd Xfer(QC): 6 Toilet Transfer (QC): 6 Car Transfer (QC): 6 Does the Patient Walk: Yes Walk 10 feet (QC): 6 Walk 50ft with 2 Turns (QC): 6 Walk 150 ft (QC): 6 Walking 10ft on Uneven Surface: 6 1 Step (curb) (QC): 6 4 Steps (QC): 6 12 Steps (QC): 6 Picking up an Object (QC): 6 Does the Pt use WC or Scooter?: No Wheel 50 feet with 2 turns (QC: 9 Type: N/A Wheel 150 feet: 9 Type: N/A PT Plan Treatment/Plan Treatment Plan: Continue Plan of Care Treatment Plan: Bed Mobility, Education, Functional Activity Luis, Functional Strength, Group Therapy, Gait, Therapeutic Exercise, Transfers Treatment Duration: Oct 15, 2020 Frequency: At least 5 of 7 days/Wk (IRF) Estimated Hrs Per Day: 1.5 hours per day Patient and/or Family Agrees t: Yes Time/GCodes Time In: 1305 Time Out: 1320 Total Billed Treatment Time: 15 Total Billed Treatment 1, gait 15' DOMINIQUE SHELBY CPTA Oct 03, 2020 13:32
--- NOTE | 2020-10-03 13:49 | ST Cognitive Linguistic Eval ---
Speech Evaluation-General Medical Diagnosis L4-S1 anterior lumbar interbody fusion Onset Date: Sep 27, 2020 Therapy Diagnosis Therapy Diagnosis: Cognitive-communication Referral Referring Physician: Dr. Crowe Medical History Pertinent Medical History: Arthritis, HTN Reviewed History: Yes Social History Current Living Status: Alone Speech PLF-Current Status Prior Level of Function Patient lives home alone where she was independent for her daily needs. Subjective Patient was pleasant and cooperative with the cognitive assessment. Language Eval: Auditory Comprehends Simple Yes/No Ques: Functional Indent/Objects Multiple [place]: Functional Ident/Pics in Multiple [place]: Functional Follows 1-Step Commands: Functional Follows Complex Directions: Functional Follows General Conversations: Functional Language Eval: Verbal Language Completes Spontaneous Greeting: Functional Produces Auto, Serial Info: Functional Imitates Simple Words/Phrases: Functional Word Finding: Functional Requests Basic Needs: Functional States Basic Personal Info: Functional Expresses Complex Ideas: Functional Objective Cognitive Domain Attention: WNL Memory: WNL Problem Solving: Functional Executive Functions: WNL Visuospatial Skills: WNL Composite Severity Rating: WNL Clock Drawing Severity Rating: WNL Objective Formal/Standardized Tests [facility] Mental Status ([facility]) Results 30/30, within normal range of function Oral Motor/Speech Production Within normal limits Impression Patient is a pleasant 70 y/o female who was admitted to the ARU s/p extensive spine surgery. Patient lives home alone and was independent for her daily needs. 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 The patient was given the SLUMS at bedside with a score of 30/30 obtained. The patient's score does not indicate the need for further ST services at this time. Speech Patient Assess Expression of Ideas/Wants: Expression (4) Understanding Verbal Content: Understands (4) Brief Interview-Mental Status: Yes Repetition of Three Words: Three (3) Temporal Orientation: Year: Correct (3) Temporal Orientation: Month: Accurate within 5 days(2) Temporal Orientation: Day: Correct (1) Recall : Wear to say "Sock": Yes, no cue required (2) Recall : Color: Yes, no cue required (2) Recall : Bed: Yes, no cue required (2) Memory/Recall Ability: Current season, Location of own room Speech-Plan Patient/Family Goals Patient/Family Goals: Patient plans on returning to her home upon discharge. Treatment Plan Speech Therapy Treatment Plan: Discontinue ST Treatment Duration: Oct 03, 2020 Frequency: 1 time per week Estimated Hrs Per Day: .5 hour per day Rehab Potential: Good Barriers to Learning: None identified Pt/Family Agrees to Plan: Yes Safety Risks/Education Teaching Recipient: Patient Teaching Methods: Demonstration, Discussion Response to Teaching: Verbalize Understanding, Return Demonstration Education Topics Provided: Safety within her room Time Speech Therapy Time In: 13:30 Speech Therapy Time Out: 14:00 Total Billed Time: 30 Billed Treatment Time 1, SPSNDCOMP TONIA Whitney Oct 03, 2020 13:49
[2020-10-03] MEDS: DIAZEPAM 5 MG (VALIUM) TABLET PO PRN (15:58)
[2020-10-03 18:00] VITALS: BP 107/53
[2020-10-03] MEDS: AMITRIPTYLINE 25 MG (ELAVIL) TAB PO SCH (21:09)
[2020-10-04] MEDS: DIAZEPAM 5 MG (VALIUM) TABLET PO PRN ×3 (01:10→22:03)
[2020-10-04 06:00] VITALS: BP 139/64
[2020-10-04] MEDS: BETHANECHOL 25 MG (URECHOLINE) TAB PO SCH ×4 (06:18→21:59)
[2020-10-04] MEDS: PRENATAL VITAMIN 1 EA TAB PO SCH (06:19)
--- NOTE | 2020-10-04 08:48 | Progress Note - Urology ---
Progress Note-Urology Progress Notes/Assess & Plan Progress/Assessment & Plan VOIDING WELL ON OWN. PVR 105. START WEANING OFF FLOMAX Final Diagnosis URINE RETENTION (RESOLVING) FRANKY BROWER MD Oct 04, 2020 08:48
--- NOTE | 2020-10-04 09:07 | Physical Therapy Daily Note ---
PT Daily Note-Current Subjective Pt laying Supine in bed upon arrival. Pt agrees to PT. Pain Numeric Pain Scale: 4 Location Body Site: Back Pain Description: [place] Mental Status Patient Orientation: Person, Place, Time, Situation Attachments: Other-See Comments (Lumbar Brace) Transfers SCALE: Activities may be completed with or without assistive devices. 6-Figpyboddj-estjawa completes the activity by him/herself with no assistance from a helper. 5-Set-up or Clean-up Assistance-helper sets up or cleans up; patient completes activity. [place] assists only prior to or following the activity. 4-Supervision or Touching Assistance-helper provides verbal cues and/or to uching/steadying and/or contact guard assistance as patient completes activity. Assistance may be provided throughout the activity or intermittently. 3-Partial/Moderate Assistance-helper does LESS THAN HALF the effort. [place] lifts, holds or supports trunk or limbs, but provides less than half the effort. 2-Substantial/Maximal Assistance-helper does MORE THAN HALF the effort. [place] lifts or holds trunk or limbs and provides more than half the effort. 1-Buyubfglh-dwbyun does ALL the effort. Patient does none of the effort to complete the activity. Or, the assistance of 2 or more helpers is required for the patient to complete the activity. If activity was not attempted, code reason: 7-Patient Refused. 9-Not Applicable-not attempted and the patient did not perform the activity before the current illness, exacerbation or injury. 10-Not Attempted due to Environmental Limitations-(lack of equipment, weather restraints, etc.). 88-Not Attempted due to Medical Conditions or Safety Concerns. Lying to Sitting/Side of Bed(Q: 6 Sit to Stand (QC): 6 Toilet Transfer (QC): 6 Weight Bearing Full Weight Bearing Full Weight Bearing Gait Training Does the Patient Walk?: Yes Distance: 450' x2 Walk 10 feet (QC): 6 Walk 50 ft with 2 Turns(QC): 6 Walk 150 ft (QC): 5 Gait Persons Needed: 1 Gait Assistive Device: FWW Exercises Standing: Hamstring curls, 3 way Ex=Flex, Abd, Ext, Marching, Mini squats, Sit to Stand Standing Reps: 20 NuStep Minutes: 15 NuStep Workload: 4 Treatments TF to standing and uses BR. Pt amb. in hallway then uses NuStep for 15m at WL 4. This is followed by Standing EX at //bar. Pt amb in hallway then returns to room to rest at end of tx. All needs met and OT arrives for tx. Assessment Current Status: Good Progress Pt jax. tx well and will work on higher functioning balance activities. PT Short Term Goals Short Term Goals Time Frame: Oct 08, 2020 Roll Left & Right: 4 Sit to lyin Lying to sitting on side of be: 5 Sit to stand: 5 Chair/shv-av-qwnet transfer: 5 Toilet transfer: 5 Car transfer: 5 Walk 10 feet: 5 Walk 50 feet with two turns: 5 Walk 150 feet: 5 Walking 10ft on uneven surface: 5 1 step (curb): 5 4 steps: 5 12 steps: 5 Picking up objects: 4 PT Halfway Goals Halfway Goals PT Halfway Goals Time Frame: Oct 15, 2020 Roll Left & Right (QC): 6 Sit to Lying (QC): 6 Lying-Sitting on Side/Bed(QC): 6 Sit to Stand (QC): 6 Chair/Flz-qs-Qtgnf Xfer(QC): 6 Toilet Transfer (QC): 6 Car Transfer (QC): 6 Does the Patient Walk: Yes Walk 10 feet (QC): 6 Walk 50ft with 2 Turns (QC): 6 Walk 150 ft (QC): 6 Walking 10ft on Uneven Surface: 6 1 Step (curb) (QC): 6 4 Steps (QC): 6 12 Steps (QC): 6 Picking up an Object (QC): 6 Does the Pt use WC or Scooter?: No Wheel 50 feet with 2 turns (QC: 9 Type: N/A Wheel 150 feet: 9 Type: N/A PT Plan Problem List Problem List: Activity Tolerance Treatment/Plan Treatment Plan: Continue Plan of Care Treatment Plan: Bed Mobility, Education, Functional Activity Luis, Functional Strength, Group Therapy, Gait, Therapeutic Exercise, Transfers Treatment Duration: Oct 15, 2020 Frequency: At least 5 of 7 days/Wk (IRF) Estimated Hrs Per Day: 1.5 hours per day Patient and/or Family Agrees t: Yes Safety Risks/Education Patient Education: Correct Positioning, Safety Issues Teaching Recipient: Patient Teaching Methods: Discussion Response to Teaching: Verbalize Understanding Time/GCodes Time In: 800 Time Out: 900 Total Billed Treatment Time: 60 Total Billed Treatment 1, FA x2 (25m), GT (15m) & EX (20m) GREG BOND TOPOGRAPHICAL DRAFTER Oct 04, 2020 09:07
[2020-10-04] MEDS: lisINopril 20 MG (PRINIVIL) TABLET PO SCH (09:41)
[2020-10-04] MEDS: METHENAMINE HIPP (UREX) 1 GM TABLET PO SCH ×2 (09:41→21:59)
[2020-10-04] MEDS: ASPIRIN E.C. 325 MG (ECOTRIN) TABLET PO SCH (09:41)
[2020-10-04] MEDS: SENNA W/DOCUSATE (SENOKOT S) TABLET PO SCH ×2 (09:41→21:59)
[2020-10-04] MEDS: VITAMIN D3 125 MCG (5,000 UNITS) CAPSULE PO SCH (09:42)
[2020-10-04] MEDS: SERTRALINE 50 MG (ZOLOFT) TABLET PO SCH (09:42)
[2020-10-04] MEDS: eZETimibe 10 MG (ZETIA) TABLET PO SCH (09:42)
[2020-10-04] MEDS: TAMSULOSIN 0.4 MG (FLOMAX) CAP PO SCH (09:42)
[2020-10-04] MEDS: LACTOBACILLUS ACIDOPHILUS (PROBIOTIC) CAPSULE PO SCH (09:42)
[2020-10-04] MEDS: CALCIUM CARB + VIT D 600 MG (CALCARB + D) TAB PO SCH ×2 (09:42→17:16)
[2020-10-04] MEDS: NITROFURANTOIN 100 MG (MACROBID) CAPSULE PO SCH ×2 (09:42→17:16)
[2020-10-04] MEDS: PANTOPRAZOLE 40 MG (PROTONIX) TAB PO SCH ×2 (09:42→21:59)
[2020-10-04] MEDS: MAGNESIUM OXIDE (MAG-OX)400 MG TAB PO SCH (09:42)
[2020-10-04] MEDS: ASCORBIC ACID (VIT C) 500 MG TABLET PO SCH (09:43)
[2020-10-04] MEDS: PHENAZOPYRIDINE 100 MG (PYRIDIUM) TABLET PO SCH ×3 (09:43→19:35)
[2020-10-04] MEDS: DOCUSATE SODIUM 100 MG (COLACE) CAP PO SCH ×2 (09:43→21:59)
[2020-10-04] MEDS: polyethylene glycoL POWDER 17 GM (MIRALAX) PACK PO SCH ×2 (10:06→21:59)
--- NOTE | 2020-10-04 10:10 | Occupational Ther Daily Note ---
OT Current Status-Daily Note Subjective Pt alert, finishing up with PT. Took over care from PT. No c/o pain at this time. Pt up ad ashvin in room. Mental Status/Objective Patient Orientation: Person, Place, Time, Situation Attachments: Other-See Comments (back brace) ADL-Treatment 1st treatment([id number]) Pt agrees to shower. Using FWW, pt able to retrieve clothing independently. Completed toilet and shower transfer using FWW independently. Completed shower, independently using grabbars, shower bench, hand held shower and long handle sponge. Independent with upper body dressing. Independent with lower body dressing using senior ui software engineer and FWW for stability in standing while hiking pants over hips. Dons/doffs brace independently. Doffs socks with dressing stick and dons socks with sock aide independently. Applied elastic shoelaces to shoes. Pt using senior ui software engineer and long handle shoehorn to don shoes with min A. Pt will continue to need practice to become proficient. Sitting at sink completes oral care and grooming independently. After session, pt sitting at sink to complete grooming with call light within reach. Nrsg aware of pt's position. All needs met. Therapy Code Descriptions/Definitions Functional [place] Measure: 0=Not Assessed/NA 4=Minimal Assistance 1=Total Assistance 5=Supervision or Setup 2=Maximal Assistance 6=Modified [place] 3=Moderate Assistance 7=Complete IndependenceSCALE: Activities may be completed with or without assistive devices. 1-Lcqekvdskg-lxjtzpa completes the activity by him/herself with no assistance from a helper. 5-Set-up or Clean-up Assistance-helper sets up or cleans up; patient completes activity. [place] assists only prior to or following the activity. 4-Supervision or Touching Assistance-helper provides verbal cues and/or touching/steadying and/or contact guard assistance as patient completes activity. Assistance may be provided throughout the activity or intermittently. 3-Partial/Moderate Assistance-helper does LESS THAN HALF the effort. [place] lifts, holds or supports trunk or limbs, but provides less than half the effort. 2-Substantial/Maximal Assistance-helper does MORE THAN HALF the effort. [place] lifts or holds trunk or limbs and provides more than half the effort. 7-Jbxqpisms-vcwfut does ALL the effort. Patient does none of the effort to com plete the activity. Or, the assistance of 2 or more helpers is required for the patient to complete the activity. If activity was not attempted, code reason: 7-Patient Refused. 9-Not Applicable-not attempted and the patient did not perform the activity before the current illness, exacerbation or injury. 10-Not Attempted due to Environmental Limitations-(lack of equipment, weather restraints, etc.). 88-Not Attempted due to Medical Conditions or Safety Concerns. Oral Hygiene (QC): 6 Shower/Bathe Self (QC): 6 Upper Body Dressing (QC): 6 Lower Body Dressing (QC): 6 On/Off Footwear: 3 Toileting Hygiene (QC): 6 Toilet Transfer (QC): 6 Other Treatment 2nd Treatment ([id number]) Pt requested to use toilet. Independent with toileting and hygiene using FWW, BSC and grabbars. Pt then ambulated to [facility] kitchen areas to work on ambulating using counter top to stabilize. No LOB noted throughout task. Pt will have a walker with built in seat in kitchen if necessary to sit. Pt then ambulated to therapy gym to work on increasing strength and activity tolerance for daily functional tasks, 10 min at 20 gilliam resistance. Pt then ambulated using wall rails throughout halls to work on functional balance, no LOB noted. After therapy, pt sitting in recliner with call light/phone in reach. All needs met in room. Education OT Patient Education: Use of adapted equipment Teaching Recipient: Patient Teaching Methods: Demonstration, Discussion Response to Teaching: Verbalize Understanding, Return Demonstration, Reinforcement Needed OT Short Term Goals Short Term Goals Shower/bathe self: 3 Upper body dressin Lower body dressin Putting on/taking off footwear: 3 OT [employer] Press Hand Goals Halfway Goals Time Frame: Oct 14, 2020 Eating (QC): 6 Oral Hygiene (QC): 6 Toileting Hygiene (QC): 6 Shower/Bathe Self (QC): 6 Upper Body Dressing (QC): 6 Lower Body Dressing (QC): 6 On/Off Footwear (QC): 6 Additional Goals: 1-Demonstrate ADL Tasks, 2-Verbalize Understanding, 3- ImproveStrength/Luis 1=Demonstrate adherence to instructed precautions during ADL tasks. 2=Patient will verbalize/demonstrate understanding of assistive devices/modifications for ADL. 3=Patient will improve strength/tolerance for activity to enable patient to perform ADL's. OT Education/Plan Problem List/Assessment Assessment: Decreased UE Strength, Impaired Self-Care Skills Discharge Recommendations Plan/Recommendations: Continue POC Treatment Plan/Plan of Care Patient would benefit from OT for education, treatment and training to promote independence in ADL's, mobility, safety and/or upper extremity function for ADL's. Plan of Care: ADL Retraining, Caregiver Training, Concurrent Therapy, Functional Mobility, Group Exercise/Act as Ind, UE Funct Exercise/Act Treatment Duration: Oct 14, 2020 Frequency: At least 5 of 7 days/Wk (IRF) Estimated Hrs Per Day: 1.5 hours per day Agreement: Yes Rehab Potential: Good Time/GCodes Start Time: 09:00 (1100) Stop Time: 10:00 (1140) Total Time Billed (hr/min): 100 Billed Treatment Time 1 visit-ADL 4 (60 min) 2nd visit-ADL 1 (10 min) EX 1 (10 min) FA 2 (20 min) JAIRO JOHNSON Oct 04, 2020 10:10
[2020-10-04] MEDS: PSYLLIUM POWDER (METAMUCIL) 5.8 GM PACKET PO SCH (10:32)
[2020-10-04] MEDS: VITAMIN E 180 MG (400 UNITS) CAP PO SCH (11:07)
--- NOTE | 2020-10-04 11:18 | PM&R Progress Note ---
Subjective HPI/CC On Admission Date Seen by Provider: Oct 04, 2020 Time Seen by Provider: 11:30 Subjective/Events-last exam 10/04/20: Pain improved Valium helps lower left muscle spasms Walking well Voiding well Flomax changed to daily instead of BID Venofer maintained for severe iron infusions Incision looks good 10/03/20: Improved status Ad ashvin in room Pain controlled Valium and Hydrocodone taken last night Voiding well without catheter BM+ 10/02/20: Had a small BM today Siegel will be DC and if issues persist will talk to Dr Lu Pain controlled Iron infusions ordered and updated her on the iron level 17 10/01/20: Patient settling in well Will DC catheter soon Bladder meds maintained No BM yet so ordered supp and enema if needed Pain controlled Valium ordered for spasms Review of Systems General: Fatigue, Malaise Neurological: Weakness Objective Exam Vital Signs Vital Signs Date Time Temp Pulse Resp B/P (MAP) Pulse Ox O2 Delivery O2 Flow Rate FiO2 10/05/20 06:24 36.5 84 18 155/73 (100) 96 Room Air Capillary Refill : General Appearance: No Apparent Distress, WD/WN HEENT: PERRL/EOMI, Normal ENT Inspection, Pharynx Normal Neck: Full Range of Motion, Normal Inspection, Non Tender, Supple, Carotid Bruit Respiratory: Chest Non Tender, Lungs Clear, Normal Breath Sounds, No Accessory Muscle Use, No Respiratory Distress Cardiovascular: Regular Rate, Rhythm, No Edema, No Gallop, No JVD, No Murmur, Normal Peripheral Pulses Gastrointestinal: Normal Bowel Sounds, No Organomegaly, No Pulsatile Mass, Non Tender, Soft Back: Normal Inspection, CVA Tenderness (L), CVA Tenderness (R), Decreased Range of Motion, Muscle Spasm, Vertebral Tenderness Extremity: Normal Capillary Refill, Normal Inspection, Normal Range of Motion, Non Tender, No Calf Tenderness, No Pedal Edema Neurologic/Psychiatric: Alert, Oriented x3, No Motor/Sensory Deficits, Normal Mood/Affect, Abnormal Gait, Motor Weakness (generlized weakness legs 4/5) Skin: Normal Color, Warm/Dry Lymphatic: No Adenopathy Results/Procedures Lab Patient resulted labs reviewed. FIM Transfers Therapy Code Descriptions/Definitions Functional [place] Measure: 0=Not Assessed/NA 4=Minimal Assistance 1=Total Assistance 5=Supervision or Setup 2=Maximal Assistance 6=Modified [place] 3=Moderate Assistance 7=Complete IndependenceSCALE: Activities may be completed with or without assistive devices. 6-Qotfomnmrf-ufuhoar completes the activity by him/herself with no assistance from a helper. 5-Set-up or Clean-up Assistance-helper sets up or cleans up; patient completes activity. [place] assists only prior to or following the activity. 4-Supervision or Touching Assistance-helper provides verbal cues and/or touching/steadying and/or contact guard assistance as patient completes activity. Assistance may be provided throughout the activity or intermittently. 3-Partial/Moderate Assistance-helper does LESS THAN HALF the effort. [place] lifts, holds or supports trunk or limbs, but provides less than half the effort. 2-Substantial/Maximal Assistance-helper does MORE THAN HALF the effort. [place] lifts or holds trunk or limbs and provides more than half the effort. 4-Tojrcngfp-qbdqjx does ALL the effort. Patient does none of the effort to complete the activity. Or, the assistance of 2 or more helpers is required for the patient to complete the activity. If activity was not attempted, code reason: 7-Patient Refused. 9-Not Applicable-not attempted and the patient did not perform the activity before the current illness, exacerbation or injury. 10-Not Attempted due to Environmental Limitations-(lack of equipment, weather restraints, etc.). 88-Not Attempted due to Medical Conditions or Safety Concerns. Roll Left to Right (QC): 3 Sit to Lying (QC): 3 Sit to Stand (QC): 4 Chair/Fyn-tq-Xtndv Xfer(QC): 4 Car Transfer (QC): 3 Gait Training Does the Patient Walk?: Yes Walk 10 feet (QC): 4 Walk 50 ft with 2 Turns(QC): 4 Walk 150 ft (QC): 4 Walking 10ft/uneven surface-QC: 4 Gait Assistive Device: FWW Wheelchair Training Does the Pt Use a Wheelchair?: No Wheel 50 ft with 2 turns (QC): 9 Wheel 150 ft (QC): 9 Type of Wheelchair: N/A Stair Training #of Steps: 4 1 Step (curb) (QC): 4 4 Steps (QC): 3 12 Steps (QC): 88 Balance Picking up an Object (QC): 88 ADL-Treatment Eating (QC): 6 (Ind) Oral Hygiene (QC): 6 Bathing Location: L Arm, R Arm, L Upper Leg, R Upper Leg, L Lower Leg (including foot) (LH sponge), R Lower Leg (including foot) (LH sponge), Chest, Abdomen, Buttocks, Perineal Area Shower/Bathe Self (QC): 6 Upper Body Dressing (QC): 6 Lower Body Dressing (QC): 6 On/Off Footwear (QC): 3 Toileting Hygiene (QC): 6 Toilet Transfer (QC): 6 Assessment/Plan Assessment and Plan Assess & Plan/Chief Complaint Assessment: s/p extensive spine surgery Dr Anna POD # 7 Urinary retention post op h/o UTI's HTN HLP GERD Depression Anemia iron deficiency severe requiring IV iron Plan: Monitor closely IRF Pain control Bladder meds 10/01/20: Monitor BM Bladder meds Dr Lu consult IV iron infusion Pain control 10/02/20: Small BM so evita give more meds DC Siegel cath Pain control 10/03/20: Voiding well without catheter BM+ Improved status DC soon 10/04/20: Iron infusions Pain control Valium (1) S/P spinal surgery (2) GERD (gastroesophageal reflux disease) (3) Siegel catheter in place (4) Urinary retention (5) Hypertension (6) Hyperlipidemia (7) Depression LIDA RODRIGUEZ DO Oct 04, 2020 11:18
--- NOTE | 2020-10-04 14:07 | Physical Therapy Daily Note ---
PT Daily Note-Current Subjective Patient in bed pre tx, agrees to PT, has 4/10 back pain. Appearance Patient in recliner post tx with nurse call, phone, tray, all needs met. Mental Status Patient Orientation: Person, Place, Situation back brace Transfers SCALE: Activities may be completed with or without assistive devices. 8-Muvndiqptz-fjwitjf completes the activity by him/herself with no assistance from a helper. 5-Set-up or Clean-up Assistance-helper sets up or cleans up; patient completes activity. [place] assists only prior to or following the activity. 4-Supervision or Touching Assistance-helper provides verbal cues and/or touc parvez/steadying and/or contact guard assistance as patient completes activity. Assistance may be provided throughout the activity or intermittently. 3-Partial/Moderate Assistance-helper does LESS THAN HALF the effort. [place] lifts, holds or supports trunk or limbs, but provides less than half the effort. 2-Substantial/Maximal Assistance-helper does MORE THAN HALF the effort. [place] lifts or holds trunk or limbs and provides more than half the effort. 3-Nhahasfqs-baipuh does ALL the effort. Patient does none of the effort to complete the activity. Or, the assistance of 2 or more helpers is required for the patient to complete the activity. If activity was not attempted, code reason: 7-Patient Refused. 9-Not Applicable-not attempted and the patient did not perform the activity before the current illness, exacerbation or injury. 10-Not Attempted due to Environmental Limitations-(lack of equipment, weather restraints, etc.). 88-Not Attempted due to Medical Conditions or Safety Concerns. Sit to Stand (QC): 6 Chair/Yml-kk-[place] Xfer(QC): 6 Weight Bearing Full Weight Bearing Full Weight Bearing Gait Training Distance: 800' Walk 10 feet (QC): 6 Walk 50 ft with 2 Turns(QC): 6 Walk 150 ft (QC): 6 Gait Assistive Device: FWW slow but steady ambulation Exercises Standing: Heel/toe raises, Marching, Mini squats Standing Reps: 20 Treatments LE exercise, ambulation Assessment Current Status: Fair Progress improving endurance PT Short Term Goals Short Term Goals Time Frame: Oct 08, 2020 Roll Left & Right: 4 Sit to lyin Lying to sitting on side of be: 5 Sit to stand: 5 Chair/auk-jp-hfkdu transfer: 5 Toilet transfer: 5 Car transfer: 5 Walk 10 feet: 5 Walk 50 feet with two turns: 5 Walk 150 feet: 5 Walking 10ft on uneven surface: 5 1 step (curb): 5 4 steps: 5 12 steps: 5 Picking up objects: 4 PT [facility] Goals Spray Gunner Goals PT Spray Gunner Goals Time Frame: Oct 15, 2020 Roll Left & Right (QC): 6 Sit to Lying (QC): 6 Lying-Sitting on Side/Bed(QC): 6 Sit to Stand (QC): 6 Chair/Sdo-wh-Kyugs Xfer(QC): 6 Toilet Transfer (QC): 6 Car Transfer (QC): 6 Does the Patient Walk: Yes Walk 10 feet (QC): 6 Walk 50ft with 2 Turns (QC): 6 Walk 150 ft (QC): 6 Walking 10ft on Uneven Surface: 6 1 Step (curb) (QC): 6 4 Steps (QC): 6 12 Steps (QC): 6 Picking up an Object (QC): 6 Does the Pt use WC or Scooter?: No Wheel 50 feet with 2 turns (QC: 9 Type: N/A Wheel 150 feet: 9 Type: N/A PT Plan Problem List Problem List: Activity Tolerance, Functional Strength, Safety, Balance, Gait, Transfer, Bed Mobility, ROM Treatment/Plan Treatment Plan: Continue Plan of Care Treatment Plan: Bed Mobility, Education, Functional Activity Luis, Functional Strength, Group Therapy, Gait, Therapeutic Exercise, Transfers Treatment Duration: Oct 15, 2020 Frequency: At least 5 of 7 days/Wk (IRF) Estimated Hrs Per Day: 1.5 hours per day Patient and/or Family Agrees t: Yes Safety Risks/Education Patient Education: Gait Training, Transfer Techniques, Correct Positioning, Reviewed Don/Doff Brace, Safety Issues Teaching Recipient: Patient Teaching Methods: Demonstration, Discussion Response to Teaching: Reinforcement Needed Time/GCodes Time In: 1330 Time Out: 1400 Total Billed Treatment Time: 30 Total Billed Treatment 1 visit GT 20' EX 10' BRANDIE JANG PT Oct 04, 2020 14:07
[2020-10-04 19:45] VITALS: BP 113/68
[2020-10-04] MEDS: AMITRIPTYLINE 25 MG (ELAVIL) TAB PO SCH (21:59)
[2020-10-05 06:24] VITALS: BP 155/73
[2020-10-05] MEDS: BETHANECHOL 25 MG (URECHOLINE) TAB PO SCH ×4 (06:24→20:45)
[2020-10-05] MEDS: PRENATAL VITAMIN 1 EA TAB PO SCH (06:24)
[2020-10-05] MEDS: SENNA W/DOCUSATE (SENOKOT S) TABLET PO SCH ×2 (08:11→22:04)
[2020-10-05] MEDS: PSYLLIUM POWDER (METAMUCIL) 5.8 GM PACKET PO SCH (08:11)
[2020-10-05] MEDS: polyethylene glycoL POWDER 17 GM (MIRALAX) PACK PO SCH ×2 (08:11→22:04)
[2020-10-05] MEDS: DOCUSATE SODIUM 100 MG (COLACE) CAP PO SCH ×2 (08:11→22:03)
[2020-10-05] MEDS: IRON SUCROSE 200 MG/10 ML (VENOFER) VIAL IV SCH (08:54)
[2020-10-05] MEDS: NITROFURANTOIN 100 MG (MACROBID) CAPSULE PO SCH ×2 (08:54→18:20)
[2020-10-05] MEDS: CALCIUM CARB + VIT D 600 MG (CALCARB + D) TAB PO SCH ×2 (08:54→18:20)
[2020-10-05] MEDS: MAGNESIUM OXIDE (MAG-OX)400 MG TAB PO SCH (08:54)
[2020-10-05] MEDS: ASCORBIC ACID (VIT C) 500 MG TABLET PO SCH (08:54)
--- NOTE | 2020-10-05 09:15 | Progress Note - Urology ---
Progress Note-Urology Progress Notes/Assess & Plan Progress/Assessment & Plan VOIDING WELL. EMPTIES FAIRLY WELL. WISAM FLOISAC Final Diagnosis URINE RETENTION FRANKY BROWER MD Oct 05, 2020 09:15
[2020-10-05] MEDS: PHENAZOPYRIDINE 100 MG (PYRIDIUM) TABLET PO SCH ×3 (09:54→18:20)
[2020-10-05] MEDS: LACTOBACILLUS ACIDOPHILUS (PROBIOTIC) CAPSULE PO SCH (09:54)
[2020-10-05] MEDS: METHENAMINE HIPP (UREX) 1 GM TABLET PO SCH ×2 (09:54→20:45)
[2020-10-05] MEDS: VITAMIN E 180 MG (400 UNITS) CAP PO SCH (09:54)
[2020-10-05] MEDS: SERTRALINE 50 MG (ZOLOFT) TABLET PO SCH (09:54)
[2020-10-05] MEDS: lisINopril 20 MG (PRINIVIL) TABLET PO SCH (09:54)
[2020-10-05] MEDS: eZETimibe 10 MG (ZETIA) TABLET PO SCH (09:54)
[2020-10-05] MEDS: ASPIRIN E.C. 325 MG (ECOTRIN) TABLET PO SCH (09:54)
[2020-10-05] MEDS: VITAMIN D3 125 MCG (5,000 UNITS) CAPSULE PO SCH (09:54)
[2020-10-05] MEDS: PANTOPRAZOLE 40 MG (PROTONIX) TAB PO SCH ×2 (09:54→20:45)
--- NOTE | 2020-10-05 10:33 | Occupational Ther Daily Note ---
OT Current Status-Daily Note Subjective Pt alert, sitting in recliner. Finishing up with PT, OT took over care. No c/o pain at this time. Mental Status/Objective Patient Orientation: Person, Place, Time, Situation Attachments: IV, Other-See Comments (back brace) ADL-Treatment 1st session [id number]: Pt agrees to shower. Using FWW, pt retrieves clothing independently then dresses self after shower independently. Completes shower independently, HORTA covered IV site, using long hand sponge, grabbars, hand held shower and shower bench. Independent with toilet transfer and toileting using FWW, grabbars and BSC to elevate toilet. After session, pt sitting at sink to complete grooming and oral care. Call light placed in reach. Nrsg aware of pt's position. All needs met. Therapy Code Descriptions/Definitions Functional [place] Measure: 0=Not Assessed/NA 4=Minimal Assistance 1=Total Assistance 5=Supervision or Setup 2=Maximal Assistance 6=Modified [place] 3=Moderate Assistance 7=Complete IndependenceSCALE: Activities may be completed with or without assistive devices. 2-Dujyqumivk-dydoiel completes the activity by him/herself with no assistance from a helper. 5-Set-up or Clean-up Assistance-helper sets up or cleans up; patient completes activity. [place] assists only prior to or following the activity. 4-Supervision or Touching Assistance-helper provides verbal cues and/or touching/steadying and/or contact guard assistance as patient completes activity. Assistance may be provided throughout the activity or intermittently. 3-Partial/Moderate Assistance-helper does LESS THAN HALF the effort. [place] lifts, holds or supports trunk or limbs, but provides less than half the effort. 2-Substantial/Maximal Assistance-helper does MORE THAN HALF the effort. [place] lifts or holds trunk or limbs and provides more than half the effort. 9-Anwhhihin-oynemr does ALL the effort. Patient does none of the effort to complete the activity. Or, the assistance of 2 or more helpers is required for the patient to complete the activity. If activity was not attempted, code reason: 7-Patient Refused. 9-Not Applicable-not attempted and the patient did not perform the activity before the current illness, exacerbation or injury. 10-Not Attempted due to Environmental Limitations-(lack of equipment, weather restraints, etc.). 88-Not Attempted due to Medical Conditions or Safety Concerns. Eating (QC): 6 Oral Hygiene (QC): 6 Shower/Bathe Self (QC): 6 Upper Body Dressing (QC): 6 Lower Body Dressing (QC): 6 On/Off Footwear: 6 Toileting Hygiene (QC): 6 Toilet Transfer (QC): 6 Other Treatment 2nd session [id number]: Skilled instruction for B UE strengthening exercises. Pt required verbal cues for technique and direction to remember HEP. Using 2# wts, pt completed 6 exercises 3 sets 10 reps. After session, pt lying in bed with call light/phone in reach. All needs met in room. OT Short Term Goals Short Term Goals Shower/bathe self: 3 Upper body dressin Lower body dressin Putting on/taking off footwear: 3 OT Mcc Goals Mcc Goals Time Frame: Oct 14, 2020 Eating (QC): 6 (met) Oral Hygiene (QC): 6 (met) Toileting Hygiene (QC): 6 (met) Shower/Bathe Self (QC): 6 (met) Upper Body Dressing (QC): 6 (met) Lower Body Dressing (QC): 6 (met) On/Off Footwear (QC): 6 (met) Additional Goals: 1-Demonstrate ADL Tasks, 2-Verbalize Understanding, 3- ImproveStrength/Luis 1=Demonstrate adherence to instructed precautions during ADL tasks. 2=Patient will verbalize/demonstrate understanding of assistive devices/modifications for ADL. 3=Patient will improve strength/tolerance for activity to enable patient to perform ADL's. OT Education/Plan Problem List/Assessment Assessment: Impaired Self-Care Skills Discharge Recommendations Plan/Recommendations: Continue POC Treatment Plan/Plan of Care Patient would benefit from OT for education, treatment and training to promote independence in ADL's, mobility, safety and/or upper extremity function for ADL's. Plan of Care: ADL Retraining, Caregiver Training, Concurrent Therapy, Functional Mobility, Group Exercise/Act as Ind, UE Funct Exercise/Act Treatment Duration: Oct 14, 2020 Frequency: At least 5 of 7 days/Wk (IRF) Estimated Hrs Per Day: 1.5 hours per day Agreement: Yes Rehab Potential: Good Time/GCodes Start Time: 09:00 (1130) Stop Time: 10:00 (1200) Total Time Billed (hr/min): 90 Billed Treatment Time 1 visit-ADL 4 (60 min), 2nd visit-EX 2 (30 min) JAIRO JOHNSON Oct 05, 2020 10:33
--- NOTE | 2020-10-05 11:08 | PM&R Progress Note ---
Subjective HPI/CC On Admission Date Seen by Provider: Oct 05, 2020 Time Seen by Provider: 11:15 Subjective/Events-last exam 10/05/20: Patient doing well DC Flomax 3 more weeks of Macrobid for 6 months per PCP IV Venofer maintained Right IV phlebitis appears now more cellulitis so will start Keflex and warm wet compresses 10/04/20: Pain improved Valium helps lower left muscle spasms Walking well Voiding well Flomax changed to daily instead of BID Venofer maintained for severe iron infusions Incision looks good 10/03/20: Improved status Ad ashvin in room Pain controlled Valium and Hydrocodone taken last night Voiding well without catheter BM+ 10/02/20: Had a small BM today Siegel will be DC and if issues persist will talk to Dr Lu Pain controlled Iron infusions ordered and updated her on the iron level 17 10/01/20: Patient settling in well Will DC catheter soon Bladder meds maintained No BM yet so ordered supp and enema if needed Pain controlled Valium ordered for spasms Review of Systems Musculoskeletal: back pain Objective Exam Vital Signs Vital Signs Date Time Temp Pulse Resp B/P (MAP) Pulse Ox O2 Delivery O2 Flow Rate FiO2 10/05/20 18:08 37.4 96 20 118/69 (85) 95 10/05/20 08:00 Room Air Capillary Refill : General Appearance: No Apparent Distress, WD/WN HEENT: PERRL/EOMI, Normal ENT Inspection, Pharynx Normal Neck: Full Range of Motion, Normal Inspection, Non Tender, Supple, Carotid Bruit Respiratory: Chest Non Tender, Lungs Clear, Normal Breath Sounds, No Accessory Muscle Use, No Respiratory Distress Cardiovascular: Regular Rate, Rhythm, No Edema, No Gallop, No JVD, No Murmur, Normal Peripheral Pulses Gastrointestinal: Normal Bowel Sounds, No Organomegaly, No Pulsatile Mass, Non Tender, Soft Back: Normal Inspection, CVA Tenderness (L), CVA Tenderness (R), Decreased Range of Motion, Muscle Spasm, Vertebral Tenderness Extremity: Normal Capillary Refill, Normal Inspection, Normal Range of Motion, Non Tender, No Calf Tenderness, No Pedal Edema Neurologic/Psychiatric: Alert, Oriented x3, No Motor/Sensory Deficits, Normal Mood/Affect, Abnormal Gait, Motor Weakness (generlized weakness legs 4/5) Skin: Normal Color, Warm/Dry Lymphatic: No Adenopathy Results/Procedures Lab Patient resulted labs reviewed. FIM Transfers Therapy Code Descriptions/Definitions Functional [place] Measure: 0=Not Assessed/NA 4=Minimal Assistance 1=Total Assistance 5=Supervision or Setup 2=Maximal Assistance 6=Modified [place] 3=Moderate Assistance 7=Complete IndependenceSCALE: Activities may be completed with or without assistive devices. 7-Hsmmagkiwc-dqbgcax completes the activity by him/herself with no assistance from a helper. 5-Set-up or Clean-up Assistance-helper sets up or cleans up; patient completes activity. [place] assists only prior to or following the activity. 4-Supervision or Touching Assistance-helper provides verbal cues and/or touching/steadying and/or contact guard assistance as patient completes activity. Assistance may be provided throughout the activity or intermittently. 3-Partial/Moderate Assistance-helper does LESS THAN HALF the effort. [place] lifts, holds or supports trunk or limbs, but provides less than half the effort. 2-Substantial/Maximal Assistance-helper does MORE THAN HALF the effort. [place] lifts or holds trunk or limbs and provides more than half the effort. 7-Vzxxlehlt-axvbmy does ALL the effort. Patient does none of the effort to complete the activity. Or, the assistance of 2 or more helpers is required for the patient to complete the activity. If activity was not attempted, code reason: 7-Patient Refused. 9-Not Applicable-not attempted and the patient did not perform the activity before the current illness, exacerbation or injury. 10-Not Attempted due to Environmental Limitations-(lack of equipment, weather restraints, etc.). 88-Not Attempted due to Medical Conditions or Safety Concerns. Roll Left to Right (QC): 3 Sit to Lying (QC): 3 Sit to Stand (QC): 6 Chair/Ice-es-Npehe Xfer(QC): 6 Car Transfer (QC): 3 Gait Training Does the Patient Walk?: Yes Distance: 800' Walk 10 feet (QC): 6 Walk 50 ft with 2 Turns(QC): 6 Walk 150 ft (QC): 6 Walking 10ft/uneven surface-QC: 4 Gait Persons Needed: 1 Gait Assistive Device: FWW Wheelchair Training Does the Pt Use a Wheelchair?: No Wheel 50 ft with 2 turns (QC): 9 Wheel 150 ft (QC): 9 Type of Wheelchair: N/A Stair Training #of Steps: 4 1 Step (curb) (QC): 4 4 Steps (QC): 3 12 Steps (QC): 88 Balance Picking up an Object (QC): 88 ADL-Treatment Eating (QC): 6 Oral Hygiene (QC): 6 Bathing Location: L Arm, R Arm, L Upper Leg, R Upper Leg, L Lower Leg (including foot) (LH sponge), R Lower Leg (including foot) (LH sponge), Chest, Abdomen, Buttocks, Perineal Area Shower/Bathe Self (QC): 6 Upper Body Dressing (QC): 6 Lower Body Dressing (QC): 6 On/Off Footwear (QC): 6 Toileting Hygiene (QC): 6 Toilet Transfer (QC): 6 Assessment/Plan Assessment and Plan Assess & Plan/Chief Complaint Assessment: s/p extensive spine surgery Dr Anna POD # 8 Urinary retention post op h/o UTI's HTN HLP GERD Depression Anemia iron deficiency severe requiring IV iron Right lower arm IV site phlebitis with cellulitis placed on Kelfex 10/05/20 Plan: Monitor closely IRF Pain control Bladder meds 10/01/20: Monitor BM Bladder meds Dr Lu consult IV iron infusion Pain control 10/02/20: Small BM so evita give more meds DC Siegel cath Pain control 10/03/20: Voiding well without catheter BM+ Improved status DC soon 10/04/20: Iron infusions Pain control Valium 10/05/20: Patient doing well IV Venofer Right IV site phlebitis with cellulitis placed on Keflex (1) S/P spinal surgery (2) GERD (gastroesophageal reflux disease) (3) Siegel catheter in place (4) Urinary retention (5) Hypertension (6) Hyperlipidemia (7) Depression LIDA RODRIGUEZ DO Oct 05, 2020 11:07
[2020-10-05] MEDS ORDERED: CEPHALEXIN 250 MG (KEFLEX) CAP PO SCH (11:30)
--- NOTE | 2020-10-05 11:52 | Physical Therapy Daily Note ---
PT Daily Note-Current Subjective Pt sitting in recliner upon arrival. Pt agrees to PT. Pt is Ad ashvin in room since yesterday. Pain Numeric Pain Scale: 2 Location Body Site: Back Pain Description: Ache Mental Status Patient Orientation: Person, Place, Time, Situation Attachments: Other-See Comments (Lumbar brace) Transfers SCALE: Activities may be completed with or without assistive devices. 9-Hujwrsecsf-lgmkspf completes the activity by him/herself with no assistance from a helper. 5-Set-up or Clean-up Assistance-helper sets up or cleans up; patient completes activity. [place] assists only prior to or following the activity. 4-Supervision or Touching Assistance-helper provides verbal cues and/or touching/steadying and/or contact guard assistance as patient completes activity. Assistance may be provided throughout the activity or intermittently. 3-Partial/Moderate Assistance-helper does LESS THAN HALF the effort. [place] lifts, holds or supports trunk or limbs, but provides less than half the effort. 2-Substantial/Maximal Assistance-helper does MORE THAN HALF the effort. [place] lifts or holds trunk or limbs and provides more than half the effort. 9-Bukuneyzi-wmvsgr does ALL the effort. Patient does none of the effort to complete the activity. Or, the assistance of 2 or more helpers is required for the patient to complete the activity. If activity was not attempted, code reason: 7-Patient Refused. 9-Not Applicable-not attempted and the patient did not perform the activity before the current illness, exacerbation or injury. 10-Not Attempted due to Environmental Limitations-(lack of equipment, weather restraints, etc.). 88-Not Attempted due to Medical Conditions or Safety Concerns. Sit to Stand (QC): 6 Weight Bearing Full Weight Bearing Full Weight Bearing Gait Training Does the Patient Walk?: Yes Distance: 450' x2 Walk 10 feet (QC): 6 Walk 50 ft with 2 Turns(QC): 6 Walk 150 ft (QC): 6 Gait Persons Needed: 1 Gait Assistive Device: FWW Wheelchair Training Does the Pt Use a Wheelchair?: No Exercises Standing: Hamstring curls, 3 way Ex=Flex, Abd, Ext, Marching, Sit to Stand, Weight shifts Standing Reps: 15 Treatments TF to standing and amb in hallway. Pt completes Standing Ex at //bars with limited holding of //bar. Pt also works on high functioning balance activity in [employer] and is able to complete w/o LOB or hold on to FWW. Pt amb. in hallway before returning to room to rest. All needs met, call light in hand. Assessment Current Status: Good Progress Pt has improved with independence of tasks and is Ad ashvin in room. Pt is improving with balance and is able to self correct if misstep occurs. PT Short Term Goals Short Term Goals Time Frame: Oct 08, 2020 Roll Left & Right: 4 Sit to lyin Lying to sitting on side of be: 5 Sit to stand: 5 Chair/aha-xd-ienwq transfer: 5 Toilet transfer: 5 Car transfer: 5 Walk 10 feet: 5 Walk 50 feet with two turns: 5 Walk 150 feet: 5 Walking 10ft on uneven surface: 5 1 step (curb): 5 4 steps: 5 12 steps: 5 Picking up objects: 4 PT [facility] Goals Resaw Operator Goals PT Resaw Operator Goals Time Frame: Oct 15, 2020 Roll Left & Right (QC): 6 Sit to Lying (QC): 6 Lying-Sitting on Side/Bed(QC): 6 Sit to Stand (QC): 6 Chair/Ixv-sb-Lfnyo Xfer(QC): 6 Toilet Transfer (QC): 6 Car Transfer (QC): 6 Does the Patient Walk: Yes Walk 10 feet (QC): 6 Walk 50ft with 2 Turns (QC): 6 Walk 150 ft (QC): 6 Walking 10ft on Uneven Surface: 6 1 Step (curb) (QC): 6 4 Steps (QC): 6 12 Steps (QC): 6 Picking up an Object (QC): 6 Does the Pt use WC or Scooter?: No Wheel 50 feet with 2 turns (QC: 9 Type: N/A Wheel 150 feet: 9 Type: N/A PT Plan Treatment/Plan Treatment Plan: Continue Plan of Care Treatment Plan: Bed Mobility, Education, Functional Activity Luis, Functional Strength, Group Therapy, Gait, Therapeutic Exercise, Transfers Treatment Duration: Oct 15, 2020 Frequency: At least 5 of 7 days/Wk (IRF) Estimated Hrs Per Day: 1.5 hours per day Patient and/or Family Agrees t: Yes Safety Risks/Education Patient Education: Correct Positioning Teaching Recipient: Patient Teaching Methods: Discussion Response to Teaching: Verbalize Understanding Time/GCodes Time In: 800 Time Out: 900 Total Billed Treatment Time: 60 Total Billed Treatment 1, GT (15m), FA x2 (30m) & EX (15m) GREG BOND LAW OFFICE ASSISTANT Oct 05, 2020 11:52
[2020-10-05] MEDS: CEPHALEXIN 250 MG (KEFLEX) CAP PO SCH ×2 (12:46→20:45)
[2020-10-05] MEDS: DIAZEPAM 5 MG (VALIUM) TABLET PO PRN ×2 (14:56→23:15)
--- NOTE | 2020-10-05 15:00 | Physical Therapy Daily Note ---
PT Daily Note-Current Subjective Pt sitting in recliner finishing lunch upon arrival. Pt agrees to walking for PT. Pain Numeric Pain Scale: 4 Location Body Site: Back Pain Description: Ache Mental Status Patient Orientation: Person, Place, Time, Situation Attachments: Other-See Comments (Lumbar Brace) Transfers SCALE: Activities may be completed with or without assistive devices. 5-Bgrlwzdzej-cgforoe completes the activity by him/herself with no assistance from a helper. 5-Set-up or Clean-up Assistance-helper sets up or cleans up; patient completes activity. [place] assists only prior to or following the activity. 4-Supervision or Touching Assistance-helper provides verbal cues and/or touching/steadying and/or contact guard assistance as patient completes activity. Assistance may be provided throughout the activity or intermittently. 3-Partial/Moderate Assistance-helper does LESS THAN HALF the effort. [place] lifts, holds or supports trunk or limbs, but provides less than half the effort. 2-Substantial/Maximal Assistance-helper does MORE THAN HALF the effort. [place] lifts or holds trunk or limbs and provides more than half the effort. 9-Mstlzlevf-zbbkqh does ALL the effort. Patient does none of the effort to complete the activity. Or, the assistance of 2 or more helpers is required for the patient to complete the activity. If activity was not attempted, code reason: 7-Patient Refused. 9-Not Applicable-not attempted and the patient did not perform the activity before the current illness, exacerbation or injury. 10-Not Attempted due to Environmental Limitations-(lack of equipment, weather restraints, etc.). 88-Not Attempted due to Medical Conditions or Safety Concerns. Sit to Stand (QC): 6 Toilet Transfer (QC): 6 Weight Bearing Full Weight Bearing Full Weight Bearing Gait Training Does the Patient Walk?: Yes Distance: 1000+' Walk 10 feet (QC): 6 Walk 50 ft with 2 Turns(QC): 6 Walk 150 ft (QC): 6 Walking 10ft/uneven surface-QC: 6 Gait Persons Needed: 1 Gait Assistive Device: FWW Stair Training Stair Training: Handrails/: 1 handrail #of Steps: 12 1 Step (curb) (QC): 6 4 Steps (QC): 6 12 Steps (QC): 6 Stairs: Pattern: Reciprocal Treatments Pt finishes lunch then uses BR. Pt amb. in hallway, throughout ARU and on main floor of hospital. Pt returns to ARU and completes 12 steps and walking on varying surface. Pt returns to room to rest at end of tx. All needs met, call light in hand. Assessment Current Status: Excellent Progress Pt jax. tx well. PT Short Term Goals Short Term Goals Time Frame: Oct 08, 2020 Roll Left & Right: 4 Sit to lyin Lying to sitting on side of be: 5 Sit to stand: 5 Chair/mlp-ry-tuxcy transfer: 5 Toilet transfer: 5 Car transfer: 5 Walk 10 feet: 5 Walk 50 feet with two turns: 5 Walk 150 feet: 5 Walking 10ft on uneven surface: 5 1 step (curb): 5 4 steps: 5 12 steps: 5 Picking up objects: 4 PT Wrapper Stitcher Goals Wrapper Stitcher Goals PT Wrapper Stitcher Goals Time Frame: Oct 15, 2020 Roll Left & Right (QC): 6 Sit to Lying (QC): 6 Lying-Sitting on Side/Bed(QC): 6 Sit to Stand (QC): 6 Chair/Itd-eb-Cduxq Xfer(QC): 6 Toilet Transfer (QC): 6 Car Transfer (QC): 6 Does the Patient Walk: Yes Walk 10 feet (QC): 6 Walk 50ft with 2 Turns (QC): 6 Walk 150 ft (QC): 6 Walking 10ft on Uneven Surface: 6 1 Step (curb) (QC): 6 4 Steps (QC): 6 12 Steps (QC): 6 Picking up an Object (QC): 6 Does the Pt use WC or Scooter?: No Wheel 50 feet with 2 turns (QC: 9 Type: N/A Wheel 150 feet: 9 Type: N/A PT Plan Treatment/Plan Treatment Plan: Continue Plan of Care Treatment Plan: Bed Mobility, Education, Functional Activity Luis, Functional Strength, Group Therapy, Gait, Therapeutic Exercise, Transfers Treatment Duration: Oct 15, 2020 Frequency: At least 5 of 7 days/Wk (IRF) Estimated Hrs Per Day: 1.5 hours per day Patient and/or Family Agrees t: Yes Safety Risks/Education Patient Education: Steps, Correct Positioning Teaching Recipient: Patient Teaching Methods: Discussion Response to Teaching: Verbalize Understanding Time/GCodes Time In: 1315 Time Out: 1345 Total Billed Treatment Time: 30 Total Billed Treatment 1, GT x2 (30m) GREG BOND SEALER AIRCRAFT Oct 05, 2020 15:00
[2020-10-05] MEDS ORDERED: TAMSULOSIN 0.4 MG (FLOMAX) CAP PO SCH (18:00)
[2020-10-05 18:08] VITALS: BP 118/69
[2020-10-05] MEDS: AMITRIPTYLINE 25 MG (ELAVIL) TAB PO SCH (20:45)
[2020-10-06] MEDS: CEPHALEXIN 250 MG (KEFLEX) CAP PO SCH ×3 (04:55→21:08)
[2020-10-06 05:19] VITALS: BP 133/72
[2020-10-06] MEDS: BETHANECHOL 25 MG (URECHOLINE) TAB PO SCH ×4 (06:39→21:08)
[2020-10-06] MEDS: PRENATAL VITAMIN 1 EA TAB PO SCH (06:39)
--- NOTE | 2020-10-06 07:11 | PM&R Progress Note ---
Subjective HPI/CC On Admission Date Seen by Provider: Oct 06, 2020 Time Seen by Provider: 10:00 Subjective/Events-last exam 10/06/20: Patient doing well DC planned for Saturday Voiding well Loose stools so will hold laxatives 10/05/20: Patient doing well DC Flomax 3 more weeks of Macrobid for 6 months per PCP IV Venofer maintained Right IV phlebitis appears now more cellulitis so will start Keflex and warm wet compresses 10/04/20: Pain improved Valium helps lower left muscle spasms Walking well Voiding well Flomax changed to daily instead of BID Venofer maintained for severe iron infusions Incision looks good 10/03/20: Improved status Ad ashvin in room Pain controlled Valium and Hydrocodone taken last night Voiding well without catheter BM+ 10/02/20: Had a small BM today Siegel will be DC and if issues persist will talk to Dr Lu Pain controlled Iron infusions ordered and updated her on the iron level 17 10/01/20: Patient settling in well Will DC catheter soon Bladder meds maintained No BM yet so ordered supp and enema if needed Pain controlled Valium ordered for spasms Review of Systems General: Fatigue, Malaise Pulmonary: Dyspnea Objective Exam Vital Signs Vital Signs Date Time Temp Pulse Resp B/P (MAP) Pulse Ox O2 Delivery O2 Flow Rate FiO2 10/07/20 06:16 36.4 82 16 122/65 (84) 94 Room Air Capillary Refill : General Appearance: No Apparent Distress, WD/WN HEENT: PERRL/EOMI, Normal ENT Inspection, Pharynx Normal Neck: Full Range of Motion, Normal Inspection, Non Tender, Supple, Carotid Bruit Respiratory: Chest Non Tender, Lungs Clear, Normal Breath Sounds, No Accessory Muscle Use, No Respiratory Distress Cardiovascular: Regular Rate, Rhythm, No Edema, No Gallop, No JVD, No Murmur, Normal Peripheral Pulses Gastrointestinal: Normal Bowel Sounds, No Organomegaly, No Pulsatile Mass, Non Tender, Soft Back: Normal Inspection, CVA Tenderness (L), CVA Tenderness (R), Decreased Range of Motion, Muscle Spasm, Vertebral Tenderness Extremity: Normal Capillary Refill, Normal Inspection, Normal Range of Motion, Non Tender, No Calf Tenderness, No Pedal Edema Neurologic/Psychiatric: Alert, Oriented x3, No Motor/Sensory Deficits, Normal Mood/Affect, Abnormal Gait, Motor Weakness (generlized weakness legs 4/5) Skin: Normal Color, Warm/Dry Lymphatic: No Adenopathy Results/Procedures Lab Patient resulted labs reviewed. FIM Transfers Therapy Code Descriptions/Definitions Functional [place] Measure: 0=Not Assessed/NA 4=Minimal Assistance 1=Total Assistance 5=Supervision or Setup 2=Maximal Assistance 6=Modified [place] 3=Moderate Assistance 7=Complete IndependenceSCALE: Activities may be completed with or without assistive devices. 5-Wqswilrxzo-rntrksb completes the activity by him/herself with no assistance from a helper. 5-Set-up or Clean-up Assistance-helper sets up or cleans up; patient completes activity. [place] assists only prior to or following the activity. 4-Supervision or Touching Assistance-helper provides verbal cues and/or touching/steadying and/or contact guard assistance as patient completes activity. Assistance may be provided throughout the activity or intermittently. 3-Partial/Moderate Assistance-helper does LESS THAN HALF the effort. [place] lift s, holds or supports trunk or limbs, but provides less than half the effort. 2-Substantial/Maximal Assistance-helper does MORE THAN HALF the effort. [place] lifts or holds trunk or limbs and provides more than half the effort. 0-Prheajesx-gcuxtz does ALL the effort. Patient does none of the effort to complete the activity. Or, the assistance of 2 or more helpers is required for the patient to complete the activity. If activity was not attempted, code reason: 7-Patient Refused. 9-Not Applicable-not attempted and the patient did not perform the activity before the current illness, exacerbation or injury. 10-Not Attempted due to Environmental Limitations-(lack of equipment, weather restraints, etc.). 88-Not Attempted due to Medical Conditions or Safety Concerns. Roll Left to Right (QC): 3 Sit to Lying (QC): 3 Sit to Stand (QC): 6 Chair/Pda-cv-Qnqrx Xfer(QC): 6 Car Transfer (QC): 3 Gait Training Does the Patient Walk?: Yes Distance: 1000+' Walk 10 feet (QC): 6 Walk 50 ft with 2 Turns(QC): 6 Walk 150 ft (QC): 6 Walking 10ft/uneven surface-QC: 6 Gait Persons Needed: 1 Gait Assistive Device: FWW Wheelchair Training Does the Pt Use a Wheelchair?: No Wheel 50 ft with 2 turns (QC): 9 Wheel 150 ft (QC): 9 Type of Wheelchair: N/A Stair Training Stair Training: Handrails/: 1 handrail #of Steps: 12 1 Step (curb) (QC): 6 4 Steps (QC): 6 12 Steps (QC): 6 Stairs: Pattern: Reciprocal Balance Picking up an Object (QC): 88 ADL-Treatment Eating (QC): 6 Oral Hygiene (QC): 6 Bathing Location: L Arm, R Arm, L Upper Leg, R Upper Leg, L Lower Leg (including foot) (LH sponge), R Lower Leg (including foot) (LH sponge), Chest, Abdomen, Buttocks, Perineal Area Shower/Bathe Self (QC): 6 Upper Body Dressing (QC): 6 Lower Body Dressing (QC): 6 On/Off Footwear (QC): 6 Toileting Hygiene (QC): 6 Toilet Transfer (QC): 6 Assessment/Plan Assessment and Plan Assess & Plan/Chief Complaint Assessment: s/p extensive spine surgery Dr Anna POD # 9 Urinary retention post op h/o UTI's HTN HLP GERD Depression Anemia iron deficiency severe requiring IV iron Right lower arm IV site phlebitis with cellulitis placed on Kelfex 10/05/20 Plan: Monitor closely IRF Pain control Bladder meds 10/01/20: Monitor BM Bladder meds Dr Lu consult IV iron infusion Pain control 10/02/20: Small BM so evita give more meds DC Siegel cath Pain control 10/03/20: Voiding well without catheter BM+ Improved status DC soon 10/04/20: Iron infusions Pain control Valium 10/05/20: Patient doing well IV Venofer Right IV site phlebitis with cellulitis placed on Keflex 10/06/20: Hold laxatives DC Saturday (1) S/P spinal surgery (2) GERD (gastroesophageal reflux disease) (3) Siegel catheter in place (4) Urinary retention (5) Hypertension (6) Hyperlipidemia (7) Depression LIDA RODRIGUEZ DO Oct 06, 2020 07:11
[2020-10-06] MEDS: CALCIUM CARB + VIT D 600 MG (CALCARB + D) TAB PO SCH ×2 (07:32→18:51)
[2020-10-06] MEDS: ASPIRIN E.C. 325 MG (ECOTRIN) TABLET PO SCH (07:32)
[2020-10-06] MEDS: MAGNESIUM OXIDE (MAG-OX)400 MG TAB PO SCH (07:32)
[2020-10-06] MEDS: SENNA W/DOCUSATE (SENOKOT S) TABLET PO SCH ×2 (07:32→21:16)
[2020-10-06] MEDS: VITAMIN E 180 MG (400 UNITS) CAP PO SCH (07:32)
[2020-10-06] MEDS: lisINopril 20 MG (PRINIVIL) TABLET PO SCH (07:32)
[2020-10-06] MEDS: eZETimibe 10 MG (ZETIA) TABLET PO SCH (07:32)
[2020-10-06] MEDS: PHENAZOPYRIDINE 100 MG (PYRIDIUM) TABLET PO SCH ×3 (07:32→18:51)
[2020-10-06] MEDS: ASCORBIC ACID (VIT C) 500 MG TABLET PO SCH (07:32)
[2020-10-06] MEDS: fluCOnazole (DIFLUCAN) 100 MG TAB PO SCH (07:32)
[2020-10-06] MEDS: PANTOPRAZOLE 40 MG (PROTONIX) TAB PO SCH ×2 (07:33→21:07)
[2020-10-06] MEDS: SERTRALINE 50 MG (ZOLOFT) TABLET PO SCH (07:33)
[2020-10-06] MEDS: polyethylene glycoL POWDER 17 GM (MIRALAX) PACK PO SCH ×2 (07:33→21:16)
[2020-10-06] MEDS: DOCUSATE SODIUM 100 MG (COLACE) CAP PO SCH ×2 (07:33→21:16)
[2020-10-06] MEDS: METHENAMINE HIPP (UREX) 1 GM TABLET PO SCH ×2 (07:33→21:08)
[2020-10-06] MEDS: VITAMIN D3 125 MCG (5,000 UNITS) CAPSULE PO SCH (07:33)
[2020-10-06] MEDS: LACTOBACILLUS ACIDOPHILUS (PROBIOTIC) CAPSULE PO SCH (07:33)
[2020-10-06] MEDS ORDERED: NITROFURANTOIN 100 MG (MACROBID) CAPSULE PO ONE ×2 (07:48→18:48)
[2020-10-06] MEDS: NITROFURANTOIN 100 MG (MACROBID) CAPSULE PO SCH ×2 (07:55→18:53)
[2020-10-06] MEDS: PSYLLIUM POWDER (METAMUCIL) 5.8 GM PACKET PO SCH (09:47)
--- NOTE | 2020-10-06 10:02 | Occupational Ther Daily Note ---
OT Current Status-Daily Note Subjective Pt alert, working with PT. Pt agrees to therapy. No c/o pain at this time. Mental Status/Objective Patient Orientation: Person, Place, Time, Situation Attachments: IV, Other-See Comments (back brace) ADL-Treatment Pt agrees to shower. Pt able to complete showering independently using shower bench, grabbars, long handle sponge and hand held shower. Utilizing AE for lower body dressing, pt able to complete all dressing independently. Sitting at sink, pt able to complete grooming and oral care independently. Pt completes toileting transfer and toileting independently using grabbars, FWW and BSC to raise toilet height. After session, pt sitting in recliner with call light/phone in reach. All needs met in room. Therapy Code Descriptions/Definitions Functional [place] Measure: 0=Not Assessed/NA 4=Minimal Assistance 1=Total Assistance 5=Supervision or Setup 2=Maximal Assistance 6=Modified [place] 3=Moderate Assistance 7=Complete IndependenceSCALE: Activities may be completed with or without assistive devices. 8-Daqrunhffd-oajukzc completes the activity by him/herself with no assistance from a helper. 5-Set-up or Clean-up Assistance-helper sets up or cleans up; patient completes activity. [place] assists only prior to or following the activity. 4-Supervision or Touching Assistance-helper provides verbal cues and/or touching/steadying and/or contact guard assistance as patient completes activity. Assistance may be provided throughout the activity or intermittently. 3-Partial/Moderate Assistance-helper does LESS THAN HALF the effort. [place] lifts, holds or supports trunk or limbs, but provides less than half the effort. 2-Substantial/Maximal Assistance-helper does MORE THAN HALF the effort. [place] lifts or holds trunk or limbs and provides more than half the effort. 6-Eemxcxzto-umemfo does ALL the effort. Patient does none of the effort to complete the activity. Or, the assistance of 2 or more helpers is required for the patient to complete the activity. If activity was not attempted, code reason: 7-Patient Refused. 9-Not Applicable-not attempted and the patient did not perform the activity before the current illness, exacerbation or injury. 10-Not Attempted due to Environmental Limitations-(lack of equipment, weather restraints, etc.). 88-Not Attempted due to Medical Conditions or Safety Concerns. Eating (QC): 6 (Independent with meal set up and regular utensils.) Oral Hygiene (QC): 6 Shower/Bathe Self (QC): 6 Upper Body Dressing (QC): 6 Lower Body Dressing (QC): 6 On/Off Footwear: 6 Toileting Hygiene (QC): 6 Toilet Transfer (QC): 6 Other Treatment Co-treat with PT ([id number]), skilled instruction and modifications require 2 clinicians to work on higher level balance challenges for safety. PT focusing on ambulation with/without AD while OT focusing on dynamic balance during functional activities. Pt able to complete reaching and grasping items at different heights using B UE and patternmaker pressure cast. 1 LOB which pt was able to regain in dependently. OT Short Term Goals Short Term Goals Shower/bathe self: 3 Upper body dressin Lower body dressin Putting on/taking off footwear: 3 OT Fpc Goals Parts Counter Clerk Goals Time Frame: Oct 14, 2020 Eating (QC): 6 (met) Oral Hygiene (QC): 6 (met) Toileting Hygiene (QC): 6 (met) Shower/Bathe Self (QC): 6 (met) Upper Body Dressing (QC): 6 (met) Lower Body Dressing (QC): 6 (met) On/Off Footwear (QC): 6 (met) Additional Goals: 1-Demonstrate ADL Tasks, 2-Verbalize Understanding, 3- ImproveStrength/Luis 1=Demonstrate adherence to instructed precautions during ADL tasks. 2=Patient will verbalize/demonstrate understanding of assistive devices/modifications for ADL. 3=Patient will improve strength/tolerance for activity to enable patient to perform ADL's. OT Education/Plan Problem List/Assessment Assessment: Impaired Self-Care Skills Discharge Recommendations Plan/Recommendations: Continue POC Treatment Plan/Plan of Care Patient would benefit from OT for education, treatment and training to promote independence in ADL's, mobility, safety and/or upper extremity function for ADL's. Plan of Care: ADL Retraining, Caregiver Training, Concurrent Therapy, Functional Mobility, Group Exercise/Act as Ind, UE Funct Exercise/Act Treatment Duration: Oct 14, 2020 Frequency: At least 5 of 7 days/Wk (IRF) Estimated Hrs Per Day: 1.5 hours per day Agreement: Yes Rehab Potential: Good Time/GCodes Start Time: 09:00 Stop Time: 10:30 Total Time Billed (hr/min): 90 Billed Treatment Time 1 visit-FA 1 (15 min) co-treat with PT ([id number]), ADL 5 (75 min) JAIRO JOHNSON Oct 06, 2020 10:02
--- NOTE | 2020-10-06 10:56 | Progress Note - Urology ---
Progress Note-Urology Progress Notes/Assess & Plan Progress/Assessment & Plan CONTINUES VOIDING WELL OFF FLOMAX. PVR 105. DECREASE URECHOLINE TO TID AC Final Diagnosis URINE RETENTION FRANKY BROWER MD Oct 06, 2020 10:56
--- NOTE | 2020-10-06 11:42 | Physical Therapy Daily Note ---
PT Daily Note-Current Subjective Patient in recliner pre tx, agrees to PT, has 4/10 low back pain. Appearance Patient in recliner post tx with nurse call, phone, tray, all needs met. Mental Status Patient Orientation: Normal For Age back brace, she dons it independently Transfers SCALE: Activities may be completed with or without assistive devices. 2-Hzcubwcjau-shqtdab completes the activity by him/herself with no assistance from a helper. 5-Set-up or Clean-up Assistance-helper sets up or cleans up; patient completes activity. [place] assists only prior to or following the activity. 4-Supervision or Touching Assistance-helper provides verbal cues and/or touching/steadying and/or contact guard assistance as patient completes activity. Assistance may be provided throughout the activity or intermittently. 3-Partial/Moderate Assistance-helper does LESS THAN HALF the effort. [place] lifts, holds or supports trunk or limbs, but provides less than half the effort. 2-Substantial/Maximal Assistance-helper does MORE THAN HALF the effort. [place] lifts or holds trunk or limbs and provides more than half the effort. 1-Xalqyorif-nlvyco does ALL the effort. Patient does none of the effort to complete the activity. Or, the assistance of 2 or more helpers is required for the patient to complete the activity. If activity was not attempted, code reason: 7-Patient Refused. 9-Not Applicable-not attempted and the patient did not perform the activity before the current illness, exacerbation or injury. 10-Not Attempted due to Environmental Limitations-(lack of equipment, weather restraints, etc.). 88-Not Attempted due to Medical Conditions or Safety Concerns. Sit to Stand (QC): 6 Chair/Sko-ik-Gmxcj Xfer(QC): 6 Weight Bearing Full Weight Bearing Full Weight Bearing Gait Training Distance: 500'x2 Walk 10 feet (QC): 6 Walk 50 ft with 2 Turns(QC): 6 Walk 150 ft (QC): 6 Gait Assistive Device: FWW slow but steady ambulation Exercises NuStep Minutes: 15 NuStep Workload: 4 Treatments transfers, ambulation, functional strengthening Assessment Current Status: Fair Progress improving endurance and general mobility PT Short Term Goals Short Term Goals Time Frame: Oct 08, 2020 Roll Left & Right: 4 Sit to lyin Lying to sitting on side of be: 5 Sit to stand: 5 Chair/osk-gz-xkqgz transfer: 5 Toilet transfer: 5 Car transfer: 5 Walk 10 feet: 5 Walk 50 feet with two turns: 5 Walk 150 feet: 5 Walking 10ft on uneven surface: 5 1 step (curb): 5 4 steps: 5 12 steps: 5 Picking up objects: 4 PT Impregnator And Drier Helper Goals Impregnator And Drier Helper Goals PT Impregnator And Drier Helper Goals Time Frame: Oct 15, 2020 Roll Left & Right (QC): 6 Sit to Lying (QC): 6 Lying-Sitting on Side/Bed(QC): 6 Sit to Stand (QC): 6 Chair/Uvp-ax-Wnbcd Xfer(QC): 6 Toilet Transfer (QC): 6 Car Transfer (QC): 6 Does the Patient Walk: Yes Walk 10 feet (QC): 6 Walk 50ft with 2 Turns (QC): 6 Walk 150 ft (QC): 6 Walking 10ft on Uneven Surface: 6 1 Step (curb) (QC): 6 4 Steps (QC): 6 12 Steps (QC): 6 Picking up an Object (QC): 6 Does the Pt use WC or Scooter?: No Wheel 50 feet with 2 turns (QC: 9 Type: N/A Wheel 150 feet: 9 Type: N/A PT Plan Problem List Problem List: Activity Tolerance, Functional Strength, Safety, Balance, Gait, Transfer, Bed Mobility, ROM Treatment/Plan Treatment Plan: Continue Plan of Care Treatment Plan: Bed Mobility, Education, Functional Activity Luis, Functional Strength, Group Therapy, Gait, Therapeutic Exercise, Transfers Treatment Duration: Oct 15, 2020 Frequency: At least 5 of 7 days/Wk (IRF) Estimated Hrs Per Day: 1.5 hours per day Patient and/or Family Agrees t: Yes Safety Risks/Education Patient Education: Gait Training, Transfer Techniques, Correct Positioning, Reviewed Don/Doff Brace, Safety Issues Teaching Recipient: Patient Teaching Methods: Demonstration, Discussion Response to Teaching: Reinforcement Needed Time/GCodes Time In: 1130 Time Out: 1200 Total Billed Treatment Time: 30 Total Billed Treatment 1 visit EX 15' GT 15' BRANDIE JANG PT Oct 06, 2020 11:42
--- NOTE | 2020-10-06 12:00 | Physical Therapy Daily Note ---
PT Daily Note-Current Subjective Pt sitting in recliner upon arrival. Pt agrees to PT. Pain Numeric Pain Scale: 4 Location Body Site: Back Pain Description: Ache Mental Status Patient Orientation: Person, Place, Time, Situation Attachments: Other-See Comments (Lumbar Brace) Transfers SCALE: Activities may be completed with or without assistive devices. 3-Qjetjvahoe-xjnpgtk completes the activity by him/herself with no assistance from a helper. 5-Set-up or Clean-up Assistance-helper sets up or cleans up; patient completes activity. [place] assists only prior to or following the activity. 4-Supervision or Touching Assistance-helper provides verbal cues and/or pj melissa/steadying and/or contact guard assistance as patient completes activity. Assistance may be provided throughout the activity or intermittently. 3-Partial/Moderate Assistance-helper does LESS THAN HALF the effort. [place] lifts, holds or supports trunk or limbs, but provides less than half the effort. 2-Substantial/Maximal Assistance-helper does MORE THAN HALF the effort. [place] lifts or holds trunk or limbs and provides more than half the effort. 7-Eunjzxmap-frrfex does ALL the effort. Patient does none of the effort to complete the activity. Or, the assistance of 2 or more helpers is required for the patient to complete the activity. If activity was not attempted, code reason: 7-Patient Refused. 9-Not Applicable-not attempted and the patient did not perform the activity before the current illness, exacerbation or injury. 10-Not Attempted due to Environmental Limitations-(lack of equipment, weather restraints, etc.). 88-Not Attempted due to Medical Conditions or Safety Concerns. Sit to Stand (QC): 6 Toilet Transfer (QC): 6 Weight Bearing Full Weight Bearing Full Weight Bearing Gait Training Does the Patient Walk?: Yes Distance: 450' Walk 10 feet (QC): 6 Walk 50 ft with 2 Turns(QC): 6 Walk 150 ft (QC): 6 Gait Persons Needed: 1 Gait Assistive Device: FWW Wheelchair Training Does the Pt Use a Wheelchair?: No Stair Training Stair Training: Handrails/: 2 handrails #of Steps: 8 1 Step (curb) (QC): 6 4 Steps (QC): 6 Stairs: Pattern: Reciprocal Exercises Standing: Heel/toe raises, 3 way Ex=Flex, Abd, Ext, Marching, Mini squats Standing Reps: 15 Treatments TF to standing and uses BR. Pt amb. in hallway then completes Standing EX at //bars. Pt completes stairs then OT joins for high functioning balance and reaching activities using cones and rings. Pt returns to room with OT to finish tx. All needs met. Assessment Current Status: Good Progress Pt jax. tx well. PT Short Term Goals Short Term Goals Time Frame: Oct 08, 2020 Roll Left & Right: 4 Sit to lyin Lying to sitting on side of be: 5 Sit to stand: 5 Chair/xne-qh-qdcef transfer: 5 Toilet transfer: 5 Car transfer: 5 Walk 10 feet: 5 Walk 50 feet with two turns: 5 Walk 150 feet: 5 Walking 10ft on uneven surface: 5 1 step (curb): 5 4 steps: 5 12 steps: 5 Picking up objects: 4 PT Custom Harvester Goals Custom Harvester Goals PT Custom Harvester Goals Time Frame: Oct 15, 2020 Roll Left & Right (QC): 6 Sit to Lying (QC): 6 Lying-Sitting on Side/Bed(QC): 6 Sit to Stand (QC): 6 Chair/Qys-rl-Htvgl Xfer(QC): 6 Toilet Transfer (QC): 6 Car Transfer (QC): 6 Does the Patient Walk: Yes Walk 10 feet (QC): 6 Walk 50ft with 2 Turns (QC): 6 Walk 150 ft (QC): 6 Walking 10ft on Uneven Surface: 6 1 Step (curb) (QC): 6 4 Steps (QC): 6 12 Steps (QC): 6 Picking up an Object (QC): 6 Does the Pt use WC or Scooter?: No Wheel 50 feet with 2 turns (QC: 9 Type: N/A Wheel 150 feet: 9 Type: N/A PT Plan Treatment/Plan Treatment Plan: Continue Plan of Care Treatment Plan: Bed Mobility, Education, Functional Activity Luis, Functional Strength, Group Therapy, Gait, Therapeutic Exercise, Transfers Treatment Duration: Oct 15, 2020 Frequency: At least 5 of 7 days/Wk (IRF) Estimated Hrs Per Day: 1.5 hours per day Patient and/or Family Agrees t: Yes Time/GCodes Time In: 815 Time Out: 915 Total Billed Treatment Time: 60 Total Billed Treatment 1, GT x2 (30m), EX (20m), FA (10m) GREG BOND PTA Oct 06, 2020 12:00
[2020-10-06 17:38] VITALS: BP 132/78
[2020-10-06] MEDS: DIAZEPAM 5 MG (VALIUM) TABLET PO PRN (21:07)
[2020-10-06] MEDS: AMITRIPTYLINE 25 MG (ELAVIL) TAB PO SCH (21:08)
[2020-10-06] MEDS ORDERED: BTH10T PO (21:36)
[2020-10-06] MEDS ORDERED: FLUC100T6 PO (21:36)
[2020-10-06] MEDS ORDERED: DIAZ5TAB49 PO (21:36)
[2020-10-06] MEDS ORDERED: ACHYD1T PO (21:36)
[2020-10-06] MEDS ORDERED: PHEN-826 PO (21:36)
[2020-10-06] MEDS ORDERED: CEPH250C PO (21:36)
--- NOTE | 2020-10-06 21:40 | D/C HH Face to Face Order ---
D/C Face to Face Orders Reconcile Patient Problems Problems Reviewed?: Yes Instructions for Patient [facility] Patient Instructions/FollowUp: PCP [address] Anna as scheduled Physician to follow Patient: PCP Discharge Diet for Home: Regular Diet Patient Problems: Extensive spine surgery Urinary retention Patient Data-Allergies,Ht & Wt Patient Allergies: Coded Allergies: codeine (Verified Allergy, Mild, Vomiting, 10/01/20) nausea and vomiting, patient states she can take po hydrocodone and it doesn't bother her morphine (Verified Allergy, Mild, Vomiting, 10/01/20) nausea and vomiting tramadol (Verified Allergy, Mild, 10/01/20) patient states she couldn't sleep when she took tramadol Sulfa (Sulfonamide Antibiotics) (Verified Allergy, Unknown, 09/30/20) Home Health Need/Face to Face Date of Face to Face: Oct 06, 2020 Clinical Findings: Generalized weakness and fatigue, Instability, Muscle weakness, Pain with ambulation, Unsteady gait I have seen Pt vmxk-uw-qtsv: Yes Discharged To: Home Diagnosis/Conditions: Extensive spine surgery Urinary retention Patient is Homebound due to: [place] fall risk due to instabilty, Muscle weakness, Pain w/ambulation Homebound Status Due to the above stated illness, injury or surgical procedure (medical condition or diagnosis) and associated clinical findings, the patient is homebound because of his/her inability to leave home except with aid of a supportive device and/or person AND leaving the home requires a considerable and taxing effort or is medically contraindicated. Pt req the following assistanc: [facility] Health Nursing Orders Home Health Services Order: Nursing Services (incision monitoring/island dressings), Physical Therapy-Evaluate & Treat Home Health Infusion Therapy Line Start Date: Oct 04, 2020 Certify Stmt I certify that this patient is under my care and that I, a nurse practitioner or a physician; a occupational therapy assistant working with me, had a face to face encounter that - meets the physician face to face encounter requirements with this patient as dated. LIDA RODRIGUEZ DO Oct 06, 2020 21:40
[2020-10-07] MEDS: CEPHALEXIN 250 MG (KEFLEX) CAP PO SCH ×3 (04:43→20:44)
[2020-10-07 06:16] VITALS: BP 122/65
[2020-10-07] MEDS: PRENATAL VITAMIN 1 EA TAB PO SCH (06:32)
--- NOTE | 2020-10-07 07:36 | Occupational Ther Daily Note ---
OT Current Status-Daily Note Subjective Pt alert, up ad ashvin in room. Pt agrees to therapy. No c/o pain. Mental Status/Objective Patient Orientation: Person, Place, Time, Situation Attachments: IV, Other-See Comments (Back brace) ADL-Treatment 1st session ([id number]) Pt agrees to shower. Pt is independent with toilet transfer and toileting using FWW, grabbars and BSC over toilet. Pt independent with donning/doffing back brace. Using FWW, pt able to gather clothing and transport to bathroom. Transfers into shower independently and completes shower independently using shower bench, grabbars, LH sponge and hand held shower. Using lower body AE for dressing, pt able to don/doff lower body clothing independently. Independent for upper body dressing. Independent footwear using AE to adhere to back precautions. Sitting or standing at sink, pt able to complete oral care independently. Pt is able to set up meal and use regular utensils to eat. After session, pt sitting in recliner eating breakfast. Call light/phone in reach. All needs met in room. Therapy Code Descriptions/Definitions Functional [place] Measure: 0=Not Assessed/NA 4=Minimal Assistance 1=Total Assistance 5=Supervision or Setup 2=Maximal Assistance 6=Modified [place] 3=Moderate Assistance 7=Complete IndependenceSCALE: Activities may be completed with or without assistive devices. 8-Zvxlnkwyso-gpqvpzx completes the activity by him/herself with no assistance from a helper. 5-Set-up or Clean-up Assistance-helper sets up or cleans up; patient completes activity. [place] assists only prior to or following the activity. 4-Supervision or Touching Assistance-helper provides verbal cues and/or touching/steadying and/or contact guard assistance as patient completes activity. Assistance may be provided throughout the activity or intermittently. 3-Partial/Moderate Assistance-helper does LESS THAN HALF the effort. [place] lifts, holds or supports trunk or limbs, but provides less than half the effort. 2-Substantial/Maximal Assistance-helper does MORE THAN HALF the effort. [place] lifts or holds trunk or limbs and provides more than half the effort. 0-Megjfyzcc-zajdvj does ALL the effort. Patient does none of the effort to complete the activity. Or, the assistance of 2 or more helpers is required for the patient to complete the activity. If activity was not attempted, code reason: 7-Patient Refused. 9-Not Applicable-not attempted and the patient did not perform the activity before the current illness, exacerbation or injury. 10-Not Attempted due to Environmental Limitations-(lack of equipment, weather restraints, etc.). 88-Not Attempted due to Medical Conditions or Safety Concerns. Eating (QC): 6 Oral Hygiene (QC): 6 Shower/Bathe Self (QC): 6 Upper Body Dressing (QC): 6 Lower Body Dressing (QC): 6 On/Off Footwear: 6 Toileting Hygiene (QC): 6 Toilet Transfer (QC): 6 Other Treatment 2nd session () Pt able to don/doff socks using AE independently. Donned shoes using AE, independently. Pt ambulated to therapy gym to work on higher level balance tasks. Pt able to stand at counter balancing without holding onto surface and completed ROM arc 2x's with each UE, no LOB noted. Simulated bathroom environment to work on stepping in/out of tub, independently. Pt was ambulating and had 1 LOB, regained balance by self. Pt then ambulated back to room using FWW. Transferred to toilet and complete toileting independently using FWW, grabbars and BSC over toilet. PT took over care of pt. All needs met. OT Short Term Goals Short Term Goals Shower/bathe self: 3 Upper body dressin Lower body dressin Putting on/taking off footwear: 3 OT Halfway Goals Halfway Goals Time Frame: Oct 14, 2020 Eating (QC): 6 (met) Oral Hygiene (QC): 6 (met) Toileting Hygiene (QC): 6 (met) Shower/Bathe Self (QC): 6 (met) Upper Body Dressing (QC): 6 (met) Lower Body Dressing (QC): 6 (met) On/Off Footwear (QC): 6 (met) Additional Goals: 1-Demonstrate ADL Tasks, 2-Verbalize Understanding, 3- ImproveStrength/Luis 1=Demonstrate adherence to instructed precautions during ADL tasks. 2=Patient will verbalize/demonstrate understanding of assistive devices/modifications for ADL. 3=Patient will improve strength/tolerance for activity to enable patient to perform ADL's. OT Education/Plan Problem List/Assessment Assessment: Impaired Self-Care Skills Discharge Recommendations Plan/Recommendations: Continue POC Treatment Plan/Plan of Care Patient would benefit from OT for education, treatment and training to promote independence in ADL's, mobility, safety and/or upper extremity function for ADL's. Plan of Care: ADL Retraining, Caregiver Training, Concurrent Therapy, Functional Mobility, Group Exercise/Act as Ind, UE Funct Exercise/Act Treatment Duration: Oct 14, 2020 Frequency: At least 5 of 7 days/Wk (IRF) Estimated Hrs Per Day: 1.5 hours per day Agreement: Yes Rehab Potential: Good Time/GCodes Start Time: 07:00 (0930) Stop Time: 08:00 (1000) Total Time Billed (hr/min): 90 Billed Treatment Time 2 visits-ADL 5 (75 min) FA 1 (15 min) JAIRO JOHNSON Oct 07, 2020 07:36
[2020-10-07] MEDS: CALCIUM CARB + VIT D 600 MG (CALCARB + D) TAB PO SCH ×2 (08:23→18:32)
[2020-10-07] MEDS: eZETimibe 10 MG (ZETIA) TABLET PO SCH (08:24)
[2020-10-07] MEDS: ASPIRIN E.C. 325 MG (ECOTRIN) TABLET PO SCH (08:24)
[2020-10-07] MEDS: METHENAMINE HIPP (UREX) 1 GM TABLET PO SCH ×2 (08:24→20:47)
[2020-10-07] MEDS: VITAMIN E 180 MG (400 UNITS) CAP PO SCH (08:24)
[2020-10-07] MEDS: VITAMIN D3 125 MCG (5,000 UNITS) CAPSULE PO SCH (08:24)
[2020-10-07] MEDS: LACTOBACILLUS ACIDOPHILUS (PROBIOTIC) CAPSULE PO SCH (08:24)
[2020-10-07] MEDS: MAGNESIUM OXIDE (MAG-OX)400 MG TAB PO SCH (08:24)
[2020-10-07] MEDS: BETHANECHOL 25 MG (URECHOLINE) TAB PO SCH ×3 (08:25→20:47)
[2020-10-07] MEDS: PANTOPRAZOLE 40 MG (PROTONIX) TAB PO SCH ×2 (08:25→20:47)
[2020-10-07] MEDS: PHENAZOPYRIDINE 100 MG (PYRIDIUM) TABLET PO SCH ×3 (08:25→18:32)
[2020-10-07] MEDS: fluCOnazole (DIFLUCAN) 100 MG TAB PO SCH (08:25)
[2020-10-07] MEDS: ASCORBIC ACID (VIT C) 500 MG TABLET PO SCH (08:26)
[2020-10-07] MEDS: SERTRALINE 50 MG (ZOLOFT) TABLET PO SCH (08:26)
[2020-10-07] MEDS: IRON SUCROSE 200 MG/10 ML (VENOFER) VIAL IV SCH (08:26)
[2020-10-07] MEDS: lisINopril 20 MG (PRINIVIL) TABLET PO SCH (08:26)
[2020-10-07] MEDS ORDERED: NITROFURANTOIN 100 MG (MACROBID) CAPSULE PO ONE ×2 (08:33→18:27)
[2020-10-07] MEDS: NITROFURANTOIN 100 MG (MACROBID) CAPSULE PO SCH ×2 (08:38→18:32)
[2020-10-07] MEDS: PSYLLIUM POWDER (METAMUCIL) 5.8 GM PACKET PO SCH (08:38)
[2020-10-07] MEDS: polyethylene glycoL POWDER 17 GM (MIRALAX) PACK PO SCH ×2 (08:38→20:48)
[2020-10-07] MEDS: DOCUSATE SODIUM 100 MG (COLACE) CAP PO SCH ×2 (08:38→20:46)
[2020-10-07] MEDS: SENNA W/DOCUSATE (SENOKOT S) TABLET PO SCH ×2 (08:39→20:48)
--- NOTE | 2020-10-07 10:48 | PM&R Progress Note ---
Subjective HPI/CC On Admission Date Seen by Provider: Oct 07, 2020 Time Seen by Provider: 18:00 Subjective/Events-last exam 10/07/20: Patient doing well Reviewed meds at DC and confirmed all received at pharmacy Pain tolerated 10/06/20: Patient doing well DC planned for Saturday Voiding well Loose stools so will hold laxatives 10/05/20: Patient doing well DC Flomax 3 more weeks of Macrobid for 6 months per PCP IV Venofer maintained Right IV phlebitis appears now more cellulitis so will start Keflex and warm wet compresses 10/04/20: Pain improved Valium helps lower left muscle spasms Walking well Voiding well Flomax changed to daily instead of BID Venofer maintained for severe iron infusions Incision looks good 10/03/20: Improved status Ad ashvin in room Pain controlled Valium and Hydrocodone taken last night Voiding well without catheter BM+ 10/02/20: Had a small BM today Siegel will be DC and if issues persist will talk to Dr Lu Pain controlled Iron infusions ordered and updated her on the iron level 17 10/01/20: Patient settling in well Will DC catheter soon Bladder meds maintained No BM yet so ordered supp and enema if needed Pain controlled Valium ordered for spasms Review of Systems General: Fatigue, Malaise Objective Exam Vital Signs Vital Signs Date Time Temp Pulse Resp B/P (MAP) Pulse Ox O2 Delivery O2 Flow Rate FiO2 10/08/20 08:00 Room Air 10/08/20 06:00 36.8 88 18 148/77 (100) 95 Capillary Refill : General Appearance: No Apparent Distress, WD/WN HEENT: PERRL/EOMI, Normal ENT Inspection, Pharynx Normal Neck: Full Range of Motion, Normal Inspection, Non Tender, Supple, Carotid Bruit Respiratory: Chest Non Tender, Lungs Clear, Normal Breath Sounds, No Accessory Muscle Use, No Respiratory Distress Cardiovascular: Regular Rate, Rhythm, No Edema, No Gallop, No JVD, No Murmur, Normal Peripheral Pulses Gastrointestinal: Normal Bowel Sounds, No Organomegaly, No Pulsatile Mass, Non Tender, Soft Back: Normal Inspection, CVA Tenderness (L), CVA Tenderness (R), Decreased Range of Motion, Muscle Spasm, Vertebral Tenderness Extremity: Normal Capillary Refill, Normal Inspection, Normal Range of Motion, Non Tender, No Calf Tenderness, No Pedal Edema Neurologic/Psychiatric: Alert, Oriented x3, No Motor/Sensory Deficits, Normal Mood/Affect, Abnormal Gait, Motor Weakness (generlized weakness legs 4/5) Skin: Normal Color, Warm/Dry Lymphatic: No Adenopathy Results/Procedures Lab Patient resulted labs reviewed. FIM Transfers Therapy Code Descriptions/Definitions Functional [place] Measure: 0=Not Assessed/NA 4=Minimal Assistance 1=Total Assistance 5=Supervision or Setup 2=Maximal Assistance 6=Modified [place] 3=Moderate Assistance 7=Complete IndependenceSCALE: Activities may be completed with or without assistive devices. 3-Ypocpyukfb-lnvvvom completes the activity by him/herself with no assistance from a helper. 5-Set-up or Clean-up Assistance-helper sets up or cleans up; patient completes activity. [place] assists only prior to or following the activity. 4-Supervision or Touching Assistance-helper provides verbal cues and/or touching/steadying and/or contact guard assistance as patient completes activity. Assistance may be provided throughout the activity or intermittently. 3-Partial/Moderate Assistance-helper does LESS THAN HALF the effort. [place] lifts, holds or supports trunk or limbs, but provides less than half the effort. 2-Substantial/Maximal Assistance-helper does MORE THAN HALF the effort. [place] lifts or holds trunk or limbs and provides more than half the effort. 0-Qmfrfvogd-tfnqjy does ALL the effort. Patient does none of the effort to complete the activity. Or, the assistance of 2 or more helpers is required for the patient to complete the activity. If activity was not attempted, code reason: 7-Patient Refused. 9-Not Applicable-not attempted and the patient did not perform the activity before the current illness, exacerbation or injury. 10-Not Attempted due to Environmental Limitations-(lack of equipment, weather restraints, etc.). 88-Not Attempted due to Medical Conditions or Safety Concerns. Roll Left to Right (QC): 3 Sit to Lying (QC): 3 Sit to Stand (QC): 6 Chair/Tyf-tn-Bjlgf Xfer(QC): 6 Car Transfer (QC): 3 Gait Training Does the Patient Walk?: Yes Distance: 450' Walk 10 feet (QC): 6 Walk 50 ft with 2 Turns(QC): 6 Walk 150 ft (QC): 6 Walking 10ft/uneven surface-QC: 6 Gait Persons Needed: 1 Gait Assistive Device: FWW Wheelchair Training Does the Pt Use a Wheelchair?: No Wheel 50 ft with 2 turns (QC): 9 Wheel 150 ft (QC): 9 Type of Wheelchair: N/A Stair Training Stair Training: Handrails/: 2 handrails #of Steps: 8 1 Step (curb) (QC): 6 4 Steps (QC): 6 12 Steps (QC): 6 Stairs: Pattern: Reciprocal Balance Picking up an Object (QC): 88 ADL-Treatment Eating (QC): 6 Oral Hygiene (QC): 6 Bathing Location: L Arm, R Arm, L Upper Leg, R Upper Leg, L Lower Leg (including foot) (LH sponge), R Lower Leg (including foot) (LH sponge), Chest, Abdomen, Buttocks, Perineal Area Shower/Bathe Self (QC): 6 Upper Body Dressing (QC): 6 Lower Body Dressing (QC): 6 On/Off Footwear (QC): 6 Toileting Hygiene (QC): 6 Toilet Transfer (QC): 6 Assessment/Plan Assessment and Plan Assess & Plan/Chief Complaint Assessment: s/p extensive spine surgery Dr Anna POD # 10 Urinary retention post op h/o UTI's HTN HLP GERD Depression Anemia iron deficiency severe requiring IV iron Right lower arm IV site phlebitis with cellulitis placed on Kelfex 10/05/20 Plan: Monitor closely IRF Pain control Bladder meds 10/01/20: Monitor BM Bladder meds Dr Lu consult IV iron infusion Pain control 10/02/20: Small BM so evita give more meds DC Siegel cath Pain control 10/03/20: Voiding well without catheter BM+ Improved status DC soon 10/04/20: Iron infusions Pain control Valium 10/05/20: Patient doing well IV Venofer Right IV site phlebitis with cellulitis placed on Keflex 10/06/20: Hold laxatives DC Saturday10/07/20: DC tomorrow No med changes (1) S/P spinal surgery (2) GERD (gastroesophageal reflux disease) (3) Siegel catheter in place (4) Urinary retention (5) Hypertension (6) Hyperlipidemia (7) Depression LIDA RODRIGUEZ DO Oct 07, 2020 10:48
--- NOTE | 2020-10-07 11:23 | Physical Therapy Daily Note ---
PT Daily Note-Current Subjective Pt. is feeling well and feels she has met all her goals and will do fine at home. No pain c/o Pain Location: No Pain Reported Mental Status Patient Orientation: Normal For Age Attachments: Other-See Comments (back brace, indep to don) Transfers SCALE: Activities may be completed with or without assistive devices. 6-Mkkckssfru-cdgdyaj completes the activity by him/herself with no assistance from a helper. 5-Set-up or Clean-up Assistance-helper sets up or cleans up; patient completes activity. [place] assists only prior to or following the activity. 4-Supervision or Touching Assistance-helper provides verbal cues and/or touching/steadying and/or contact guard assistance as patient completes activity. Assistance may be provided throughout the activity or intermittently. 3-Partial/Moderate Assistance-helper does LESS THAN HALF the effort. [place] lifts, holds or supports trunk or limbs, but provides less than half the effort. 2-Substantial/Maximal Assistance-helper does MORE THAN HALF the effort. [place] lifts or holds trunk or limbs and provides more than half the effort. 8-Qwfxxckyw-ianlpj does ALL the effort. Patient does none of the effort to complete the activity. Or, the assistance of 2 or more helpers is required for the patient to complete the activity. If activity was not attempted, code reason: 7-Patient Refused. 9-Not Applicable-not attempted and the patient did not perform the activity before the current illness, exacerbation or injury. 10-Not Attempted due to Environmental Limitations-(lack of equipment, weather restraints, etc.). 88-Not Attempted due to Medical Conditions or Safety Concerns. Roll Left & Right (QC): 6 Sit to Lying (QC): 6 Lying to Sitting/Side of Bed(Q: 6 Sit to Stand (QC): 6 Chair/Shf-zd-Foooz Xfer(QC): 6 Toilet Transfer (QC): 6 Car Transfer (QC): 6 Weight Bearing Full Weight Bearing Full Weight Bearing Gait Training Does the Patient Walk?: Yes Walk 10 feet (QC): 6 Walk 50 ft with 2 Turns(QC): 6 Walk 150 ft (QC): 6 Walking 10ft/uneven surface-QC: 6 Gait Persons Needed: 0 Gait Assistive Device: FWW 400ft x 2, 150 ft x 2 all indep, no LOB, good safe technique Wheelchair Training Does the Pt Use a Wheelchair?: No Stair Training Stair Training: Handrails/: 1 handrail #of Steps: 4 1 Step (curb) (QC): 6 4 Steps (QC): 6 12 Steps (QC): 88 Stairs: Pattern: Reciprocal no steps at home Balance Picking up an Object (QC): 88 Exercises Supine Ex: Ankle pumps, Quad Set, Rolling, Glut sets, Heel Slides, Short Arc Quads, Straight leg raise, Hip abd/add Supine Reps: 20 Seated Therapy Exercises: Ankle pumps, Sit to stand, Long arc quads, Hip flexio n, Hip abd/add Seated Reps: 12 Standing: Hip Abduction, Heel/toe raises, Marching, Mini squats Standing Reps: 12 NuStep Minutes: 15 NuStep Workload: 4 Assessment Current Status: Excellent Progress meets goals PT Short Term Goals Short Term Goals Time Frame: Oct 08, 2020 Roll Left & Right: 4 Sit to lyin Lying to sitting on side of be: 5 Sit to stand: 5 Chair/rug-nv-xijfe transfer: 5 Toilet transfer: 5 Car transfer: 5 Walk 10 feet: 5 Walk 50 feet with two turns: 5 Walk 150 feet: 5 Walking 10ft on uneven surface: 5 1 step (curb): 5 4 steps: 5 12 steps: 5 Picking up objects: 4 PT Chainstitch Pants Outseamer Goals Fpc Goals PT Chainstitch Pants Outseamer Goals Time Frame: Oct 15, 2020 Roll Left & Right (QC): 6 Sit to Lying (QC): 6 Lying-Sitting on Side/Bed(QC): 6 Sit to Stand (QC): 6 Chair/Cpi-yv-Hilfx Xfer(QC): 6 Toilet Transfer (QC): 6 Car Transfer (QC): 6 Does the Patient Walk: Yes Walk 10 feet (QC): 6 Walk 50ft with 2 Turns (QC): 6 Walk 150 ft (QC): 6 Walking 10ft on Uneven Surface: 6 1 Step (curb) (QC): 6 4 Steps (QC): 6 12 Steps (QC): 6 Picking up an Object (QC): 6 Does the Pt use WC or Scooter?: No Wheel 50 feet with 2 turns (QC: 9 Type: N/A Wheel 150 feet: 9 Type: N/A PT Plan Treatment/Plan Treatment Plan: Continue Plan of Care, Discontinue PT, goals met Treatment Plan: Bed Mobility, Education, Functional Activity Luis, Functional Strength, Group Therapy, Gait, Therapeutic Exercise, Transfers Treatment Duration: Oct 15, 2020 Frequency: At least 5 of 7 days/Wk (IRF) Estimated Hrs Per Day: 1.5 hours per day Patient and/or Family Agrees t: Yes Safety Risks/Education Patient Education: Gait Training, Transfer Techniques, Steps, Correct Positioning, Disease Process, Safety Issues Teaching Recipient: Patient Teaching Methods: Demonstration, Discussion Response to Teaching: Verbalize Understanding, Return Demonstration Time/GCodes Time In: 1000 Time Out: 1130 Total Billed Treatment Time: 90 Total Billed Treatment 1,EX30m,GT30m,FA30m SUZANNE BARTON THERAPIST PHYS Oct 07, 2020 11:23
--- NOTE | 2020-10-07 15:50 | Therapy Team Discharge Summary ---
Therapy Discharge Summary Discharge Recommendations Date of Discharge Occupational Therapy Pt admits to ARU with L4-S1 anterior lubar interbody fusion with back brace/ spinal precautions. QCs upon admission vs d/c: oral care 4, showering 3, UB dressing 4, LB dressing 2, toilet hygiene 4. Pt and OT staff work toward higher fx IND through increased ADL training, AE training, safety awareness, UE training. Pt d/c's with all goals met and IND with ADLs. Pt d/c's home with recommendations of hip kit. D/c OT at this time. Impaired Self-Care Skills PT Care Home Goals Care Home Goals PT Care Home Goals Time Frame: Oct 15, 2020 Roll Left to Right (QC): 6 Sit to Lying (QC): 6 Lying-Sitting on Side/Bed(QC): 6 Sit to Stand (QC): 6 Chair/Sua-tw-Enbml Xfer(QC): 6 Car Transfer (QC): 6 Does the Patient Walk: Yes Walk 10 feet (QC): 6 Walk 10ft-Uneven Surface(QC): 6 Walk 50ft with 2 Turns (QC): 6 Walk 150 ft (QC): 6 Does the Pt use WC or Scooter?: No Wheel 50 feet with 2 turns (QC: 9 1 Step (curb) (QC): 6 4 Steps (QC): 6 12 Steps (QC): 6 Picking up an Object (QC): 6 OT Manufacturing Finance Manager Goals Care Home Goals Time Frame: Oct 14, 2020 Eating (QC): 6 (met) Oral Hygiene (QC): 6 (met) Shower/Bathe Self (QC): 6 (met) Upper Body Dressing (QC): 6 (met) Lower Body Dressing (QC): 6 (met) On/Off Footwear (QC): 6 (met) Toileting Hygiene (QC): 6 (met) Toilet/Commode Transfer (QC): 6 Additional Goals: 1-Demonstrate ADL Tasks, 2-Verbalize Understanding, 3-Improv eStrength/Luis 1=Demonstrate adherence to instructed precautions during ADL tasks. 2=Patient will verbalize/demonstrate understanding of assistive devices/modifications for ADL. 3=Patient will improve strength/tolerance for activity to enable patient to p erform ADL's. TOMAS MOCTEZUMA OTR Oct 07, 2020 15:50
[2020-10-07 17:45] VITALS: BP 107/56
[2020-10-07] MEDS: AMITRIPTYLINE 25 MG (ELAVIL) TAB PO SCH (20:46)
[2020-10-07] MEDS: DIAZEPAM 5 MG (VALIUM) TABLET PO PRN (22:20)
[2020-10-08] MEDS: CEPHALEXIN 250 MG (KEFLEX) CAP PO SCH ×2 (04:20→12:25)
[2020-10-08 06:00] VITALS: BP 148/77
[2020-10-08] MEDS: PRENATAL VITAMIN 1 EA TAB PO SCH (06:47)
[2020-10-08] MEDS ORDERED: BETHANECHOL 25 MG (URECHOLINE) TAB PO SCH (07:00)
[2020-10-08] MEDS ORDERED: NITROFURANTOIN 100 MG (MACROBID) CAPSULE PO ONE (08:26)
[2020-10-08] MEDS: fluCOnazole (DIFLUCAN) 100 MG TAB PO SCH (08:34)
[2020-10-08] MEDS: ASPIRIN E.C. 325 MG (ECOTRIN) TABLET PO SCH (08:34)
[2020-10-08] MEDS: eZETimibe 10 MG (ZETIA) TABLET PO SCH (08:34)
[2020-10-08] MEDS: MAGNESIUM OXIDE (MAG-OX)400 MG TAB PO SCH (08:34)
[2020-10-08] MEDS: NITROFURANTOIN 100 MG (MACROBID) CAPSULE PO SCH (08:34)
[2020-10-08] MEDS: LACTOBACILLUS ACIDOPHILUS (PROBIOTIC) CAPSULE PO SCH (08:34)
[2020-10-08] MEDS: lisINopril 20 MG (PRINIVIL) TABLET PO SCH (08:34)
[2020-10-08] MEDS: VITAMIN E 180 MG (400 UNITS) CAP PO SCH (08:34)
[2020-10-08] MEDS: ASCORBIC ACID (VIT C) 500 MG TABLET PO SCH (08:35)
[2020-10-08] MEDS: VITAMIN D3 125 MCG (5,000 UNITS) CAPSULE PO SCH (08:35)
[2020-10-08] MEDS: METHENAMINE HIPP (UREX) 1 GM TABLET PO SCH (08:35)
[2020-10-08] MEDS: CALCIUM CARB + VIT D 600 MG (CALCARB + D) TAB PO SCH (08:35)
[2020-10-08] MEDS: SENNA W/DOCUSATE (SENOKOT S) TABLET PO SCH (08:35)
[2020-10-08] MEDS: SERTRALINE 50 MG (ZOLOFT) TABLET PO SCH (08:35)
[2020-10-08] MEDS: PHENAZOPYRIDINE 100 MG (PYRIDIUM) TABLET PO SCH ×2 (08:35→14:08)
[2020-10-08] MEDS: PANTOPRAZOLE 40 MG (PROTONIX) TAB PO SCH (08:35)
[2020-10-08] MEDS: DOCUSATE SODIUM 100 MG (COLACE) CAP PO SCH (08:36)
[2020-10-08] MEDS: PSYLLIUM POWDER (METAMUCIL) 5.8 GM PACKET PO SCH (09:38)
[2020-10-08] MEDS: polyethylene glycoL POWDER 17 GM (MIRALAX) PACK PO SCH (09:38)
--- NOTE | 2020-10-08 11:36 | Therapy Team Discharge Summary ---
Therapy Discharge Summary Discharge Recommendations Date of Discharge Physical Therapy Patient came to rehab with L4-S1 anterior lumbar interbody fusion. Upon evaluation patient performed bed mobility and supine <-> sit min assist, sit <-> stand and transfers CGA, car transfer min assist, ambulated 1500' with a rolling walker with CGA/SBA (including 50' with at least 2 turns of 90 degrees and 10' over an uneven surface), and went up and down 4 steps with min assist. Patient has been performing bed mobility and transfer training, balance and endurance training, functional strengthening, stair training, gait training, and education. Patient has made good progress and has met all of her prison goals except for stairs. Now, patient performs bed mobility and transfers with independence, independent with car transfer, ambulates independently using a rolling walker (including 50' with at least 2 turns of 90 degrees and 10' over an uneven surface), and can go up and down 4 steps using 1 handrail with independence. Patient is discharging from this facility today and will be discharged from PT at this time. Occupational Therapy Impaired Self-Care Skills PT Medical Tech Goals Medical Tech Goals PT Medical Tech Goals Time Frame: Oct 15, 2020 Roll Left to Right (QC): 6 Sit to Lying (QC): 6 Lying-Sitting on Side/Bed(QC): 6 Sit to Stand (QC): 6 Chair/Wrw-jf-Kfdzm Xfer(QC): 6 Car Transfer (QC): 6 Does the Patient Walk: Yes Walk 10 feet (QC): 6 Walk 10ft-Uneven Surface(QC): 6 Walk 50ft with 2 Turns (QC): 6 Walk 150 ft (QC): 6 Does the Pt use WC or Scooter?: No Wheel 50 feet with 2 turns (QC: 9 1 Step (curb) (QC): 6 4 Steps (QC): 6 12 Steps (QC): 6 Picking up an Object (QC): 6 OT Medical Tech Goals Medical Tech Goals Time Frame: Oct 14, 2020 Eating (QC): 6 (met) Oral Hygiene (QC): 6 (met) Shower/Bathe Self (QC): 6 (met) Upper Body Dressing (QC): 6 (met) Lower Body Dressing (QC): 6 (met) On/Off Footwear (QC): 6 (met) Toileting Hygiene (QC): 6 (met) Toilet/Commode Transfer (QC): 6 Additional Goals: 1-Demonstrate ADL Tasks, 2-Verbalize Understanding, 3- ImproveStrength/Luis 1=Demonstrate adherence to instructed precautions during ADL tasks. 2=Patient will verbalize/demonstrate understanding of assistive devices/modifications for ADL. 3=Patient will improve strength/tolerance for activity to enable patient to perform ADL's. BRANDIE JANG PT Oct 08, 2020 11:36
--- NOTE | 2020-10-08 12:04 | Discharge Summary ---
Diagnosis/Chief Complaint Date of Admission Sep 30, 2020 at 15:25 Date of Discharge Discharge Date: Oct 08, 2020 Discharge Diagnosis Assessment: s/p extensive spine surgery Dr Anna POD # 11 Urinary retention post op h/o UTI's HTN HLP GERD Depression Anemia iron deficiency severe requiring IV iron Right lower arm IV site phlebitis with cellulitis placed on Kelfex 10/05/20 Plan: Monitor closely IRF Pain control Bladder meds 10/01/20: Monitor BM Bladder meds Dr Lu consult IV iron infusion Pain control 10/02/20: Small BM so evita give more meds DC Henriquez cath Pain control 10/03/20: Voiding well without catheter BM+ Improved status DC soon 10/04/20: Iron infusions Pain control Valium 10/05/20: Patient doing well IV Venofer Right IV site phlebitis with cellulitis placed on Keflex 10/06/20: Hold laxatives DC Saturday10/07/20: DC tomorrow No med changes (1) S/P spinal surgery (2) GERD (gastroesophageal reflux disease) (3) Henriquez catheter in place (4) Urinary retention (5) Hypertension (6) Hyperlipidemia (7) Depression Discharge Summary Discharge Physical Examination Allergies: Coded Allergies: codeine (Verified Allergy, Mild, Vomiting, 10/01/20) nausea and vomiting, patient states she can take po hydrocodone and it doesn't bother her morphine (Verified Allergy, Mild, Vomiting, 10/01/20) nausea and vomiting tramadol (Verified Allergy, Mild, 10/01/20) patient states she couldn't sleep when she took tramadol Sulfa (Sulfonamide Antibiotics) (Verified Allergy, Unknown, 09/30/20) Vitals & I&Os Vital Signs Date Time Temp Pulse Resp B/P (MAP) Pulse Ox O2 Delivery O2 Flow Rate FiO2 10/08/20 15:21 36.8 88 18 148/77 95 Room Air General Appearance: Alert, Oriented X3, Cooperative Respiratory: Clear to Auscultation Neuro: Normal Gait, Normal Speech, Strength at 5/5 X4 Ext Psych/Mental Status: Mental Status NL Hospital Course Was the Problem List Reviewed?: Yes Patient had a beneficial and productive IRF stay after extensive spine surgery with significant disability and urinary retention and narcotic post op bowel. Patient ultimately had resolution of severe constipation and henriquez catheter was DC which required Dr Lu consultation due to h/o recurrent UTI's. Pain management was maintained with Lortab and Valium with good results. Labs remained stable. Ultimately patient was able to regain ambulation skills along with ADL's and was DC in improved condition. Labs (last 24 hrs) Laboratory Tests 10/01/20 04:52: White Blood Count 6.3, Red Blood Count 2.90L, Hemoglobin 8.4L, Hematocrit 26L, Mean Corpuscular Volume 88, Mean Corpuscular Hemoglobin 29, Mean Corpuscular Hemoglobin Concent 33, Red Cell Distribution Width 12.5, Platelet Count 178, Mean Platelet Volume 9.1, Immature Granulocyte % (Auto) 0, Neutrophils (%) (Auto) 74, Lymphocytes (%) (Auto) 13, Monocytes (%) (Auto) 10, Eosinophils (%) (Auto) 2, Basophils (%) (Auto) 0, Neutrophils # (Auto) 4.7, Lymphocytes # (Auto) 0.8L, Monocytes # (Auto) 0.6, Eosinophils # (Auto) 0.1, Basophils # (Auto) 0.0, Immature Granulocyte # (Auto) 0.0, Sodium Level 136, Potassium Level 3.8, Chloride Level 103, Carbon Dioxide Level 24, Anion Gap 9, Blood Urea Nitrogen 10, Creatinine 0.52L, Estimat Glomerular Filtration Rate > 60, BUN/Creatinine Ratio 19, Glucose Level 118H, Calcium Level 8.0L, Corrected Calcium 9.0, Iron Level 15L, Total Bilirubin 0.4, Aspartate Amino Transf (AST/SGOT) 25, Alanine Aminotransferase (ALT/SGPT) 23, Alkaline Phosphatase 46, Total Protein 5.0L, Albumin 2.7L Pending Labs Laboratory Tests 10/01/20 04:52: White Blood Count 6.3, Red Blood Count 2.90, Hemoglobin 8.4, Hematocrit 26, Mean Corpuscular Volume 88, Mean Corpuscular Hemoglobin 29, Mean Corpuscular Hemoglobin Concent 33, Red Cell Distribution Width 12.5, Platelet Count 178, Mean Platelet Volume 9.1, Immature Granulocyte % (Auto) 0, Neutrophils (%) (Auto) 74, Lymphocytes (%) (Auto) 13, Monocytes (%) (Auto) 10, Eosinophils (%) (Auto) 2, Basophils (%) (Auto) 0, Neutrophils # (Auto) 4.7, Lymphocytes # (Auto) 0.8, Monocytes # (Auto) 0.6, Eosinophils # (Auto) 0.1, Basophils # (Auto) 0.0, Immature Granulocyte # (Auto) 0.0, Sodium Level 136, Potassium Level 3.8, Chloride Level 103, Carbon Dioxide Level 24, Anion Gap 9, Blood Urea Nitrogen 10, Creatinine 0.52, Estimat Glomerular Filtration Rate > 60, BUN/Creatinine Ratio 19, Glucose Level 118, Calcium Level 8.0, Corrected Calcium 9.0, Iron Level 15, Total Bilirubin 0.4, Aspartate Amino Transf (AST/SGOT) 25, Alanine Aminotransferase (ALT/SGPT) 23, Alkaline Phosphatase 46, Total Protein 5.0, Albumin 2.7 Discharge Home Medications: Active Scripts Active Phenazopyridine HCl 100 Mg Tablet 100 Mg PO TIDPC Diazepam 5 Mg Tablet 5 Mg PO Q8HR PRN HYDROcodone/APAP 10/325 TABLET (Acetaminophen/Hydrocodone Bitart) 1 Ea Tab 1 Ea PO Q4H PRN Urecholine (Bethanechol Chloride) 10 Mg Tablet 25 Mg PO TID Fluconazole 100 Mg Tablet 100 Mg PO DAILY Cephalexin 250 Mg Capsule 500 Mg PO TID Reported [Vs-C] 1 Ea PO BID [Adrenal Raw] 1 Ea PO DAILY [All Thymus] 1 Ea PO DAILY Benefiber (Wheat Dextrin) 1 Each Powd.pack 1 Each PO DAILY Cranberry (Cranberry Fruit) 400 Mg Tablet 400 Mg PO DAILY Magnesium Oxide 500 Mg Capsule 500 Mg PO DAILY Acidophilus-Pectin Capsule (Lactobacillus Acidophilus/Pect) 1 Each Capsule 1 Each PO DAILY Elite-Ob Caplet ( No.123/Iron/Folic AC) 1 Each Tablet 1 Each PO DAILY Ffnzrn-Hqbfuhvz-Uhqg 50-325-40 (Butalb/Acetaminophen/Caffeine) 1 Each Tablet 1 Each PO Q4H PRN Coq-10 (Ubidecarenone) 100 Mg Capsule 200 Mg PO DAILY Aspirin EC (Aspirin) 325 Mg Tablet.dr 325 Mg PO DAILY Docusate Sodium 100 Mg Tablet 200 Mg PO BID Vitamin E (Vitamin E Acetate) 400 Unit Capsule 400 Unit PO DAILY Amitriptyline HCl 25 Mg Tablet 25 Mg PO HS Vitamin C (Ascorbic Acid) 1,000 Mg Tablet 1,000 Mg PO DAILY Calcium 600 + Vit D 200 Tablet (Calcium Carbonate/Vitamin D3) 1 Each Tablet 1 Each PO BID Ezetimibe 10 Mg Tablet 10 Mg PO DAILY Lisinopril 20 Mg Tablet 20 Mg PO DAILY Hiprex (Methenamine Hippurate) 1 Gm Tablet 1 Gm PO BID Macrobid 100 mg Capsule (Nitrofurantoin Monohyd/M-Cryst) 100 Mg Capsule 100 Mg PO BID Pantoprazole Sodium 40 Mg Tablet.dr 40 Mg PO BID Zoloft (Sertraline HCl) 50 Mg Tablet 50 Mg PO DAILY Vitamin D3 (Cholecalciferol (Vitamin D3)) 125 Mcg Capsule 125 Mcg PO DAILY Instructions to patient/family Please see electronic discharge instructions given to patient. Diagnosis/Problems Diagnosis/Problems (1) S/P spinal surgery (2) GERD (gastroesophageal reflux disease) (3) Henriquez catheter in place (4) Urinary retention (5) Hypertension (6) Hyperlipidemia (7) Depression Clinical Quality Measures DVT/VTE Risk/Contraindication: Contraindications-Pharm: Other *list below* Other: spine surgery LIDA RODRIGUEZ DO Oct 08, 2020 12:04
[2020-10-08 15:21] VITALS: BP 148/77
== END 2020-10-08 14:20 | disposition home health service (06) | DRG 948 ==
LOC: EDBD 15:25
PROVIDERS: ADMIT Internal Medicine; ATTEND Internal Medicine
DX: R53.1 Weakness (principal); T80.1XXA Vascular complications following infusion, transfusion and therapeutic injection, initial encounter; L03.113 Cellulitis of right upper limb; R53.83 Other fatigue; R26.81 Unsteadiness on feet; Z47.89 Encounter for other orthopedic aftercare; N31.9 Neuromuscular dysfunction of bladder, unspecified; R33.9 Retention of urine, unspecified; K59.03 Drug induced constipation; I80.8 Phlebitis and thrombophlebitis of other sites; I10 Essential (primary) hypertension; I49.3 Ventricular premature depolarization; K21.9 Gastro-esophageal reflux disease without esophagitis; E78.00 Pure hypercholesterolemia, unspecified; F32.9 Major depressive disorder, single episode, unspecified; D50.9 Iron deficiency anemia, unspecified; E78.5 Hyperlipidemia, unspecified; T40.605A Adverse effect of unspecified narcotics, initial encounter
CPT/HCPCS: 36415; 76937; 80053; 83540; 85025